=== PATIENT | male | born 1960 | race Caucasian/White ===

== ENCOUNTER 2020-07-18 07:00 | Outpatient (RCR) | payer BC, SELFPAY | END 2020-08-18 14:52 | disposition home or self-care (01) | LOC: HO.PTCHIC 07:00 | PROVIDERS: PCP Internal Medicine; Visit Provider Physician Assistant | DX: M54.12 Radiculopathy, cervical region (principal); M25.512 Pain in left shoulder | CPT/HCPCS: 97014; 97110; 97140; 97161 ==

== ENCOUNTER → 2020-10-27 10:03 | Outpatient (BNVA) | payer BC, SELFPAY | PROVIDERS: PCP Internal Medicine; Visit Provider Internal Medicine Cardiovascular Disease | DX: I25.10 Atherosclerotic heart disease of native coronary artery without angina pectoris (principal); E78.5 Hyperlipidemia, unspecified | CPT/HCPCS: 93005 ==

== ENCOUNTER 2020-11-07 06:55 | Outpatient (REF) | payer BC, SELFPAY ==
[2020-11-07 07:48] LABS: Cholesterol 135 mg/dL; HDL Cholesterol 40 mg/dL; LDL Cholesterol Calculated 81 mg/dl; Triglycerides 74 mg/dL
== END 2020-11-07 06:56 | disposition home or self-care (01) ==
LOC: HO.LAB 06:55
PROVIDERS: PCP Internal Medicine; Visit Provider Internal Medicine Cardiovascular Disease
DX: I25.10 Atherosclerotic heart disease of native coronary artery without angina pectoris (principal)
CPT/HCPCS: 36415; 80061

== ENCOUNTER → 2021-05-19 13:20 | Outpatient (BNVA) | payer BC, SELFPAY | PROVIDERS: PCP Physician Assistant Medical; Referring Provider Physician Assistant Medical; Visit Provider Internal Medicine Cardiovascular Disease | DX: I25.10 Atherosclerotic heart disease of native coronary artery without angina pectoris (principal); R07.89 Other chest pain | CPT/HCPCS: 93005 ==

== ENCOUNTER 2021-05-21 16:26 | Emergency (ER) | payer BC, SELFPAY ==
--- NOTE | 2021-05-21 | ECG_ITS ---
Test Reason : CHEST PAIN Blood Pressure : / mmHG Vent. Rate : 107 BPM Atrial Rate : 107 BPM P-R Int : 126 ms QRS Dur : 098 ms QT Int : 342 ms P-R-T Axes : 065 064 064 degrees QTc Int : 456 ms Sinus tachycardia Low voltage QRS Incomplete right bundle branch block Abnormal ECG When compared with ECG of 06-APR-2011 09:46, No significant change was found Referred By: Generic ED Physician Electronically Signed By:CHICA MULTANI
--- NOTE | ~2021-05-21 | XR_ITS ---
EXAMINATION: XR CHEST CLINICAL INFORMATION: Chest pain COMPARISON: 04/06/2011 TECHNIQUE: Frontal view of the chest was obtained. FINDINGS: The lungs are well expanded. There is no focal consolidation, edema, or effusion. No pneumothorax. The cardiomediastinal silhouette is within normal limits. No acute osseous abnormality. XR/XR chest 1V IMPRESSION: Clear lungs.
[2021-05-21 16:40] VITALS: BP 158/95; PULSE 110; RESP 18; TEMP 36.6; O2SAT 98; BMI 28.1
--- NOTE | 2021-05-21 17:19 | ED.CHESTPAIN ---
HPI - Chest Pain General Chief Complaint: Chest Pain Stated Complaint: cp Time Seen by Provider: 05/21/21 17:19 Source: patient Mode of arrival: ambulatory Limitations: no limitations History of Present Illness HPI narrative: Patient is 60 years old with history of nonobstructive coronary artery disease had stress test about 2 years ago which was negative on medical management complaining of left-sided precordial chest pain for last 1 week off and on. Seen cable puller on 05/18 EKG was normal and diagnosis as gastric etiology. And was planned to get stress test as outpatient. Today since 07:00 patient notice pain is more sharper lasting for few seconds and occurs left side no diaphoresis no nausea mild exertional shortness of breath ,patient feeling tired otherwise for last few days also has chronic left shoulder pain after surgery and seen the Orthopedics for same today Related Data Home Medications Medication Instructions Recorded Confirmed aspirin 81 mg tablet,delayed 81 mg PO DAILY 10/27/20 05/19/21 release (Adult Low Dose Aspirin) lidocaine 5 % topical patch 1 patch TOPICAL DAILY 10/27/20 05/19/21 oxycodone 5 mg tablet 5 mg PO PRN 10/27/20 05/19/21 Previous Rx's Medication Instructions Recorded atorvastatin 80 mg tablet 80 mg PO BEDTIME #90 tab 12/16/20 ezetimibe 10 mg tablet 10 mg PO DAILY #90 tab 12/16/20 bempedoic acid 180 mg tablet 180 mg PO DAILY #30 tab 05/19/21 (Nexletol) Allergies Allergy/AdvReac Type Severity Reaction Status Date / Time naproxen [NAPROXEN] Allergy Unknown HIVES Verified 05/21/21 16:39 Review of Systems Review of Systems: Yes all other systems are reviewed and are negative [facility] Past Medical History Medical History CAD (coronary artery disease) Hyperlipidemia Surgical History History of back surgery Hx of neck surgery S/P shoulder surgery Family History Family History Father CAD (coronary artery disease) Mother Afib CAD (coronary artery disease) Social History Social History Advance Directives: No Advance Directives Information Provided: Yes Physical Exam Vital Signs: Vital Signs: Last Vital Signs Temp 97.8 F 05/21/21 16:40 Pulse 77 05/21/21 19:31 Resp 16 05/21/21 19:31 BP 134/89 05/21/21 19:31 Pulse Ox 97 05/21/21 19:31 Body Mass Index 28.1 Appearance: Alert. Oriented X3. No acute distress. Anxious Eyes: No pallor or icterus ENT: Pharynx normal. Oral Mucosa moist Neck: Normal inspection. Neck supple. CVS: Normal heart rate and rhythm. Pulses normal. Respiratory: No respiratory distress. Equal air entry bilateral, no wheezing/rales/rhonchi Abdomen: Soft and nontender. Bowel sounds are present, no mass palpable, no CVA tenderness Skin: Skin warm and dry. Normal skin color. Normal skin turgor. Extremities: No lower extremity edema. No calf tenderness Neuro: Oriented X 3. No motor deficit. MDM - Chest Pain Medical Records Data Attestation: I reviewed the patient's medical records. Lab Data Attestation: I reviewed the patient's lab results. Result diagrams: 05/21/21 17:46 05/21/21 17:46 Labs: Lab Results 05/21/21 05/21/21 05/21/21 Range/Units 17:46 17:46 17:46 WBC 10.4 (4.8-10.8) X10*3/uL RBC 4.70 (4.60-5.80) X10*6/uL Hgb 14.1 (14.0-18.0) g/dl Hct 42.2 (42-52) % MCV 89.8 (80-98) fL MCH 30.0 (27.0-33.0) pg MCHC 33.4 (31.0-36.0) g/dl RDW 13.0 (11.0-16.0) % Plt Count 299 (160-400) X10*3/uL MPV 8.6 L (9.4-12.4) fL Immature Gran % (Auto) 1.1 H (0.0-0.4) % Neut % (Auto) 66.8 (45-73) % Lymph % (Auto) 20.3 (20-40) % [place] % (Auto) 10.2 (2-11) % Eos % (Auto) 0.9 (0-4) % Baso % (Auto) 0.7 (0-2) % Lymph # (Auto) 2.1 (1.2-4.9) X10*3/uL [place] # (Auto) 1.1 (0.1-1.2) X10*3/uL Eos # (Auto) 0.1 (0.0-0.4) X10*3/uL Baso # (Auto) 0.1 (0.0-0.2) X10*3/uL Abs Immat Gran (auto) 0.11 H (0.00-0.03) X10*3/uL Absolute Neuts (auto) 7.0 (2.0-8.3) X10*3/uL Absolute Nucleated RBC 0.000 (0.0-0.012) X10*3/uL Nucleated RBC % (auto) 0.0 (0.0-0.2) /100WBC PT 11.6 (9.9-13.0) SEC INR 1.0 (0.9-1.1) Sodium 142 (135-145) mmol/L Potassium 4.1 (3.3-5.1) mmol/L Chloride 108 (96-108) mmol/L Carbon Dioxide 26 (22-29) mmol/L Anion Gap 12 (12-20) BUN 9 (9-16) mg/dL Creatinine 0.83 (0.5-1.4) mg/dL Estim Creat Clear Calc 102.3 Estimated GFR > 60 Random Glucose 165 H (60-115) mg/dL Calcium 9.4 (8.4-10.2) mg/dL Troponin I High Sens (<3.5-35.0) ng/L 05/21/21 Range/Units 17:46 WBC (4.8-10.8) X10*3/uL RBC (4.60-5.80) X10*6/uL Hgb (14.0-18.0) g/dl Hct (42-52) % MCV (80-98) fL MCH (27.0-33.0) pg MCHC (31.0-36.0) g/dl RDW (11.0-16.0) % Plt Count (160-400) X10*3/uL MPV (9.4-12.4) fL Immature Gran % (Auto) (0.0-0.4) % Neut % (Auto) (45-73) % Lymph % (Auto) (20-40) % [place] % (Auto) (2-11) % Eos % (Auto) (0-4) % Baso % (Auto) (0-2) % Lymph # (Auto) (1.2-4.9) X10*3/uL [place] # (Auto) (0.1-1.2) X10*3/uL Eos # (Auto) (0.0-0.4) X10*3/uL Baso # (Auto) (0.0-0.2) X10*3/uL Abs Immat Gran (auto) (0.00-0.03) X10*3/uL Absolute Neuts (auto) (2.0-8.3) X10*3/uL Absolute Nucleated RBC (0.0-0.012) X10*3/uL Nucleated RBC % (auto) (0.0-0.2) /100WBC PT (9.9-13.0) SEC INR (0.9-1.1) Sodium (135-145) mmol/L Potassium (3.3-5.1) mmol/L Chloride (96-108) mmol/L Carbon Dioxide (22-29) mmol/L Anion Gap (12-20) BUN (9-16) mg/dL Creatinine (0.5-1.4) mg/dL Estim Creat Clear Calc Estimated GFR Random Glucose (60-115) mg/dL Calcium (8.4-10.2) mg/dL Troponin I High Sens < 3.5 (<3.5-35.0) ng/L ECG Data ECG #1: Attestation: I personally reviewed and interpreted this ECG as follows: Interpretation: Sinus tachycardia heart rate 107 beats per minute normal intervals normal axis no acute ischemic changes impression sinus tachycardia Discharge Plan Discharge Clinical Impression: Chest pain Qualifiers: Chest pain type: precordial pain Qualified Code(s): R07.2 - Precordial pain Patient Disposition: Home, Self-Care Instructions: Chest Pain (ED) Additional Instructions: Continue to take baby aspirin daily Your chest pain is unlikely from the heart but follow-up with your cable puller for further evaluation including stress test Prescriptions: No Action atorvastatin 80 mg tablet 80 mg PO BEDTIME Qty: 90 RF: 1 ezetimibe 10 mg tablet 10 mg PO DAILY Qty: 90 RF: 1 Nexletol 180 mg tablet 180 mg PO DAILY Qty: 30 RF: 5 lidocaine 5 % adhesive patch,medicated 1 patch topical DAILY RF: 0 oxycodone 5 mg tablet 5 mg PO PRNRF: 0 aspirin [Adult Low Dose Aspirin] 81 mg tablet,delayed release (DR/EC) 81 mg PO DAILY RF: 0
[2021-05-21 17:46] VITALS: BP 166/90; PULSE 93; RESP 19; O2SAT 97
[2021-05-21 17:51] LABS: MANUAL DIFF FLAG NO
[2021-05-21 17:54] LABS: Basophils Absolute Auto 0.1 X10*3/uL (0.0-0.2); Basophils Percent Auto 0.7 % (0-2); Eosinophils Absolute Auto 0.1 X10*3/uL (0.0-0.4); Eosinophils Percent Auto 0.9 % (0-4); Hematocrit 42.2 % (42-52); Hemoglobin 14.1 g/dl (14.0-18.0); Imm Gran Abs Auto 0.11 X10*3/uL (0.00-0.03); Imm Gran Pct Auto 1.1 % (0.0-0.4); Lymphocytes Absolute Auto 2.1 X10*3/uL (1.2-4.9); Lymphocytes Percent Auto 20.3 % (20-40); Mean Corpuscular HGB Conc 33.4 g/dl (31.0-36.0); Mean Corpuscular Volume 89.8 fL (80-98); Mean Platelet Volume 8.6 fL (9.4-12.4); Monocytes Absolute Auto 1.1 X10*3/uL (0.1-1.2); Monocytes Percent Auto 10.2 % (2-11); Neutrophils Percent Auto 66.8 % (45-73); Platelet Count 299 X10*3/uL (160-400); White Blood Count 10.4 X10*3/uL (4.8-10.8)
[2021-05-21 18:01] LABS: Prothrombin Time 11.6 SEC (9.9-13.0)
[2021-05-21 18:06] LABS: Anion Gap 12 (12-20); Blood Urea Nitrogen 9 mg/dL (9-16); Calcium 9.4 mg/dL (8.4-10.2); Carbon Dioxide 26 mmol/L (22-29); Chloride 108 mmol/L (96-108); Creatinine Clr Calc Pharmacy 102.3; Estimated Glomerular Filt Rate > 60; Glucose Random 165 mg/dL (60-115); Potassium 4.1 mmol/L (3.3-5.1); Sodium 142 mmol/L (135-145)
[2021-05-21] MEDS: Aspirin 81 MG TAB.CHEW 162 MG PO (18:13)
[2021-05-21 18:14] LABS: Troponin-I High Sensitivity < 3.5 ng/L (<3.5-35.0)
[2021-05-21 19:31] VITALS: BP 134/89; PULSE 77; RESP 16; O2SAT 97
== END 2021-05-21 20:04 | disposition home or self-care (01) ==
PROVIDERS: Emergency Provider Internal Medicine; PCP Physician Assistant Medical
DX: R07.9 Chest pain, unspecified (principal); Z79.82 Long term (current) use of aspirin
CPT/HCPCS: 36415; 71045; 80048; 84484; 85025; 85610; 93005; 99283; 99284

== ENCOUNTER → 2021-10-29 09:57 | Outpatient (BNVA) | payer BC, SELFPAY | PROVIDERS: PCP Physician Assistant Medical; Referring Provider Physician Assistant Medical; Visit Provider Internal Medicine Cardiovascular Disease | DX: I25.10 Atherosclerotic heart disease of native coronary artery without angina pectoris (principal); R06.02 Shortness of breath | CPT/HCPCS: 93005 ==

== ENCOUNTER 2021-10-31 08:11 | Outpatient (REF) | payer BC, SELFPAY ==
[2021-10-31 09:00] LABS: Cholesterol 127 mg/dL; HDL Cholesterol 30 mg/dL; LDL Cholesterol Calculated 62 mg/dl; Triglycerides 178 mg/dL
[2021-11-02 20:07] LABS: CRP High Sensitivity 0.8 mg/L
== END 2021-10-31 08:12 | disposition home or self-care (01) ==
LOC: HO.LAB 08:11
PROVIDERS: PCP Physician Assistant Medical; Visit Provider Internal Medicine Cardiovascular Disease
DX: I25.10 Atherosclerotic heart disease of native coronary artery without angina pectoris (principal); E78.5 Hyperlipidemia, unspecified
CPT/HCPCS: 36415; 80061; 86141

== ENCOUNTER → 2022-01-05 08:17 | Outpatient (REF) | payer BC, SELFPAY ==
--- NOTE | 2022-01-05 08:23 | CA_ITS ---
Transthoracic Echocardiogram Patient (Last, First, Middle): Fermín Varma, Gender: Male Date of : 1960 Age: 61 Procedure Date: 01/05/2022 Procedure Type: Transthoracic Echocardiogram Location: OP Height: 172.72 cm Weight: 81.65 kg BSA: 1.95 m2 Heart Rate: bpm BP: 120 / 80 mmHg [employer] Worker: LANDON Referring MD: Terrance Hopkins MD Manager Material: Terrance Hopkins MD Symptoms: R06.02 - Shortness of breath Study Quality: Fair ECG Rhythm: Sinus Conclusions: - 1. Normal LV systolic function with impaired relaxation filling pattern 2. Normal cardiac valvular Doppler 3. Normal RV systolic pressure 4. No gross pericardial effusion Findings Left Ventricle Normal left ventricular size, thickness, and systolic function. The visually estimated ejection fraction is between 65-70%. Spectral Doppler is indicative of an impaired relaxation filling pattern. E/E prime ratio is between 8 and 15 consistent with indeterminate filling pressures. Right Ventricle Normal right ventricular cavity size and systolic function. Atria The left atrium is normal in size. Interatrial shunt cannot be excluded. The right atrium was not well visualized. Aortic Valve The aortic valve was not well visualized. There is mild calcification of the aortic valve. There is no aortic valve stenosis. There is no aortic valve regurgitation. Mitral Valve There is mild anterior mitral leaflet thickening. There is mild mitral annular calcification. There is trace mitral valve regurgitation. There is no mitral valve stenosis. Pulmonic Valve The pulmonic valve was not well visualized. Tricuspid Valve The tricuspid valve was not well visualized. There is trace tricuspid valve regurgitation. The right ventricular systolic pressure is normal. The right ventricular systolic pressure is 22 mmHg. Normal right atrial pressure. There is no evidence of pulmonary hypertension. Great Vessels All visible segments of the aorta are normal in size. The pulmonary artery was not well visualized. Venous The inferior vena cava is normal in size and collapses greater than 50% with inspiration. Pericardium/Pleural There is no evidence of pericardial effusion. Prior Study Comparison no previous study in the last 5 years for comparison Measurements 2D Linear Measurements IVSd: 1.08 0.6-0.9/0.6-1.0 cm LVIDd: 4.04 3.9-5.3/4.2-5.9 cm LVIDd Index: 2.07 2.4-3.2/2.2-3.1 cm/m2 LVIDs: 2.42 2.0-3.6 cm LVPWd: 0.87 0.7-1.1 cm LA Diam: 3.10 2.7-3.8/3.0-4.0 cm LAIDs Index: 1.59 1.5-2.3 cm/m2 LV Mass: 154.83 67-162/88-224 g LV Mass Index: 79.40 43-95/49-115 g/m2 LVOT Diam: 1.90 3.0+(-)1.3 cm 2D Systolic Function EF 4C: 72.50 >55% EF 2C: 56.40 >55% EF BiP: 66.70 >55% Mitral Valve MV Pk E: 0.89 MV PK A: 0.87 MV Decel Time: 152.00 E/A: 1.00 E'Lateral: 7.72 E'Medial: 9.03 E/E' Med: 9.80 E/E' Lat: 11.50 PHT: 45.00 MVA PHT: 4.89 Decel [place]: 5.82 Aortic Valve AoV Pk Mert: 1.60 AoV Pk Grad: 10.00 LVOT LVOT Pk Mert: 1.14 LVOT Mn Mert: 0.77 LVOT VTI: 0.21 LVOT Pk Grad: 5.00 LVOT Mn Grad: 3.00 LVOT Diam: 1.90 LVOT Area: 2.84 Diastolic Function MV Pk E: 0.89 MV Pk A: 0.87 E/A: 1.00 E'Medial: 9.03 E/E' Med: 9.80 E' Laterial: 7.72 E/E' Lat: 11.50 Right Ventricle TAPSE (mm): 2.22 TVS' Mert: 13.90 Tricuspid Valve TR Pk Mert: 2.16 TR Pk Grad: 19.00 RA Press: 3.00 RVSP: 22.00 Great Vessels Aorta Sinus of Valsalva: 3.20 2.0-3.5 cm Updated in Other Vendor System with Status of Final Terrance Hopkins MD electronically signed on 01/05/2022 10:50:57 AM with status of Final
--- NOTE | 2022-01-05 08:23 | CA_ITS ---
Acquisition Time: 2022-01-05 09:32:41 Total Exercise Time: 00:07:10 Test Indications: cp, sob Medications: see chart Protocol: JOHANNA Max HR: 171 BPM 106% of Pred: 161 BPM Max BP: 184/078 mmHG Max Work Load: 8.8 METS Exercise stress test using Johanna protocol, total of 7 min 10 sec with METS and MAPHR up to 107 %, test terminated. EKG without arrhythmias, no sichemic changes during exercise or in recovery. Normotensive response to exercise. Test reviewed with Dr. Hopkins. Referred By: Terrance Hopkins Overread By: Juliana Ellsworth NP
== END ==
LOC: HO.CARD 08:17
PROVIDERS: Visit Provider Internal Medicine Cardiovascular Disease
DX: R06.02 Shortness of breath (principal)
CPT/HCPCS: 93017; 93306

== ENCOUNTER → 2022-01-12 13:39 | Outpatient (BNVA) | payer BC, SELFPAY | PROVIDERS: PCP Physician Assistant Medical; Referring Provider Physician Assistant Medical; Visit Provider Internal Medicine Cardiovascular Disease | DX: Z13.89 Encounter for screening for other disorder (principal) ==

== ENCOUNTER 2023-08-30 08:46 | Outpatient (AMB) | payer BC, SELFPAY ==
--- NOTE | 2023-08-30 08:55 | MHC.OFFVIS ---
Intake Vital Signs 08/30/23 08:56 Height 5 ft 8 in Weight 173 lb 4.533 oz BMI 26.3 BP 130/82 Blood Pressure Location Lt brachial Position Sitting Pulse 75 Pulse Source Monitor Intake Visit Reasons: overdue follow-up with ekg Allergies naproxen [NAPROXEN] Allergy (Unknown, Verified 08/30/23 08:59) HIVES Medication List - Last Reconciled 08/30/23 by Amisha Grimes, DOYLE-C aspirin (Adult Low Dose Aspirin) 81 mg PO DAILY atorvastatin 80 mg PO BEDTIME bempedoic acid (Nexletol) 180 mg PO DAILY ezetimibe 10 mg PO DAILY HPI overdue follow-up with ekg HPI Details Fermín is a 63-year-old male with past medical history of hyperlipidemia, CAD based on calcium score who presents for follow-up. Today he reports he has been doing well since his last visit 01/12/2022. He denies any anginal sounding symptoms. He has good activity tolerance. He is taking all meds as directed. No cardiac questions or concerns. [facility] Medical History Hyperlipidemia CAD (coronary artery disease) Surgical History Hx of neck surgery S/P shoulder surgery History of back surgery Family History Father CAD (coronary artery disease) Mother Afib CAD (coronary artery disease) Social History Alcohol intake: current Alcohol intake frequency: holidays/special occasions only Review of Systems Const All systems reviewed & are unremarkable except as noted in HPI and below ENT Denies dizziness Card Denies chest pain, Denies chest pain at rest, Denies chest pain with activity, Denies rapid heart rate, Denies pedal edema, Denies edema, Denies leg edema, Denies lightheadedness, Denies palpitations, Denies dyspnea, Denies dyspnea on exertion and Denies orthopnea Resp Denies cough, Denies dyspnea and Denies dyspnea on exertion GI Denies hematochezia and Denies change in stool character Musc Denies abnormal gait, Denies limited range of motion, Denies muscle cramps, Denies muscle weakness, Denies numbness, Denies radiating pain into limb, Denies stiffness and Denies tingling Neuro Denies abnormal gait, Denies dizziness, Denies numbness and Denies tingling Endo Denies palpitations Physical Exam Vital Signs: Last Vital Signs Pulse 75 08/30/23 08:56 BP 130/82 08/30/23 08:56 BMI result Body Mass Index 26.3 Const General: cooperative, healthy appearing, comfortable and no acute distress Orientation/consciousness: patient oriented x3 Neck Neck: Yes normal visual inspection Resp Effort & Inspection: normal respiratory effort Auscultation: clear to auscultation bilaterally, no crackles, no rales, no rhonchi and no wheezes Cardio Jugular venous distension: no JVD Rate: regular rate Rhythm: regular rhythm Heart sounds: S1 normal heart sound present, S2 normal heart sound present, no murmurs and no rubs Neuro General: patient oriented x3 Extrem General: Yes normal to inspection, No no pedal edema and No calf tenderness Psych Appearance: grossly normal Mental Status: mental status grossly normal Speech and movement: Normal speech and movement present Office Procedures EKG Details: Today, read by me, normal sinus rhythm, no acute ST or T-wave abnormalities, rate 75, QTC 419 milliseconds [id number], Complete Assessment & Plan Assessment & Plan (1) CAD (coronary artery disease): Code(s): I25.10 - Atherosclerotic heart disease of [place] coronary artery without angina pectoris Qualifiers: Coronary Disease-Associated Artery/Lesion type: [place] artery [place] vs. transplanted heart: [place] heart Associated angina: without angina Qualified Code(s): I25.10 - Atherosclerotic heart disease of [place] coronary artery without angina pectoris Plan: History of CAD, elevated calcium score. No reports of anginal sounding symptoms. An exercise stress test was done 01/05/2022 with exercise 7 minutes, no anginal symptoms or EKG changes. An echocardiogram done 01/05/2022 showed EF 65-70%, no valve abnormalities or regional wall motion abnormalities. Today reports feeling well with no concerning symptoms. EKG shows sinus rhythm with no acute ST or T-wave abnormalities, rate 75. Continue with risk factor modification. Continue aspirin 81 mg daily indefinitely. Continue atorvastatin, Zetia and Nexletol for good cholesterol control with ideal LDL less than 70. He has labs done at [place]. Will work on obtaining those results. Last LDL in our system 62 done on 10/31/2021. No med changes made at present. Blood pressure is well controlled. Weight down 9 lb since last visit. Signs and symptoms of angina reviewed. Cardiology follow-up in 1 year, sooner if needed. Emergency care if ever needed for concerning symptoms. (2) Hyperlipidemia: Code(s): E78.5 - Hyperlipidemia, unspecified Qualifiers: Hyperlipidemia type: familial hypercholesterolemia Qualified Code(s): E78.01 - Familial hypercholesterolemia Plan: As above Plan Time spent on chart review, documentation, interview, assessment Medications: Changed From atorvastatin 80 mg PO BEDTIME 30 tabs 6RF To atorvastatin 80 mg PO BEDTIME 90 days 90 tabs 3RF From ezetimibe 10 mg PO DAILY 30 tabs 6RF To ezetimibe 10 mg PO DAILY 90 days 90 tabs 3RF Refilled bempedoic acid (Nexletol) 180 mg PO DAILY 90 tabs 3RF Coding Level of Care Code Est Pt Level 3 (72762) Diagnoses Coronary artery disease involving [place] coronary artery of [place] heart without angina pectoris I25.10 Coronary Disease-Associated Artery/Lesion type: [place] artery [place] vs. transplanted heart: [place] heart Associated angina: without angina Familial hypercholesterolemia E78.01 Hyperlipidemia type: familial hypercholesterolemia CPT Codes EKG - CPT: [id number], Complete ([id number]) Time Spent (min) 24
[2023-08-30 08:56] VITALS: BP 130/82; PULSE 75; BMI 26.3
== END 2023-08-30 09:26 | disposition home or self-care (01) ==
PROVIDERS: PCP Physician Assistant Medical; Visit Provider Nurse Practitioner Family
DX: I25.10 Atherosclerotic heart disease of native coronary artery without angina pectoris (principal); E78.01 Familial hypercholesterolemia
CPT/HCPCS: 93010; 99213

== ENCOUNTER → 2023-08-30 08:46 | Outpatient (BNVA) | payer BC, SELFPAY | PROVIDERS: PCP Physician Assistant Medical; Visit Provider Nurse Practitioner Family | DX: I25.10 Atherosclerotic heart disease of native coronary artery without angina pectoris (principal); E78.01 Familial hypercholesterolemia | CPT/HCPCS: 93005 ==

== ENCOUNTER → 2024-03-08 13:09 | Outpatient (BNVA) | payer BC, SELFPAY | PROVIDERS: PCP Physician Assistant Medical; Visit Provider Internal Medicine Cardiovascular Disease ==

== ENCOUNTER 2024-05-31 09:33 | Emergency (ER) | payer BC, SELFPAY ==
--- NOTE | ~2024-05-31 | XR_ITS ---
EXAMINATION: XR CHEST CLINICAL INFORMATION: Evaluate for infection COMPARISON: Chest radiograph from 05/21/2021 TECHNIQUE: 2 views of the chest were obtained. FINDINGS: No focal consolidation. No pneumothorax. Trachea is midline. Cardiac mediastinal silhouette is not enlarged. No large pleural effusion. Partially visualized cervical spinal hardware. Soft tissues are unremarkable. XR/XR chest 2V IMPRESSION: No acute cardiopulmonary process. Electronically signed by: Jasmyn Berger MD 05/31/2024 04:55 PM EDT
--- NOTE | ~2024-05-31 | CT_ITS ---
EXAMINATION: CT ANGIOGRAM HEAD CT ANGIOGRAM NECK CLINICAL INFORMATION: Headache. Neck pain. Hypertension. COMPARISON: None available. TECHNIQUE: Initial noncontrast placement director imaging of the head and neck was performed. Noncontrast head CT was also performed. Test bolus sequences followed by intravenous administration 70 mL of Omnipaque 350. Helical imaging was performed in the axial plane from the aortic arch to the skull vertex. Delayed postcontrast imaging of the head was also performed. The data was processed at the molecular technologist's workstation for generation of MIP sequences. Angled MIPs and volume rendered reformatted images were also generated at an offline 3D workstation. Stenoses are assessed in accordance with NASCET criteria unless otherwise indicated. This CT examination was performed using dose optimization techniques as appropriate, variously including the following: *Automated exposure control. *Adjustment of mA and/or kV according to patient size (this includes techniques or standardized protocols for targeted exams where dose is matched to indication/reason for exam; i.e. extremities or head). *Use of iterative reconstruction technique. DLP: 2308 mGy-cm FINDINGS: CT Head: There is no evidence of acute intracranial hemorrhage or edematous territorial infarction. Varghese-white matter differentiation is preserved. A few foci of hypoattenuation in the periventricular and deep white matter are consistent with mild microangiopathy. Proportional prominence of the ventricles and sulcal spaces without evidence of obstructive hydrocephalus. No abnormal mass effect or midline shift. No extra-axial fluid collections. No pathologic intra-axial enhancement or regional oligemia. No acute soft tissue or osseous abnormalities. Mild mucosal thickening of the paranasal sinuses. The mastoid air cells and middle ear cavities are clear. CT Neck: The thyroid gland and remaining cervical soft tissues are within normal limits. Interbody fusion devices in place at C5-C6 and C6-C7. Straightening of the normal cervical lordosis. Mild to moderate degenerative disc disease at all additional levels. CT Upper Chest: Moderate centrilobular emphysema. The visualized lung apices and upper mediastinum are within normal limits. Neck CTA: Aortic Arch: Normal contour and caliber with mild calcific atherosclerotic disease. Two vessel branching pattern of the arch with left common carotid artery arising from the brachiocephalic trunk. Great Vessel Origins: No significant stenosis of the branch origins. Right Common Carotid Artery: No focal stenosis or occlusion. Cervical Right Internal Carotid Artery: Calcific atherosclerotic disease of the carotid bulb and proximal internal carotid artery causing less than 50% stenosis. Left Common Carotid Artery: No focal stenosis or occlusion. Cervical Left Internal Carotid Artery: Mixed fibrofatty and calcific atherosclerotic disease of the carotid bulb and proximal internal carotid artery causing less than 50% stenosis. Cervical Right Vertebral Artery: Co-dominant. No focal stenosis or occlusion. Cervical Left Vertebral Artery: Co-dominant. No focal stenosis or occlusion. Brain CTA: Intracranial Internal Carotid Arteries: Calcific atherosclerotic disease of the intracranial internal carotid arteries without occlusion or flow-limiting stenosis. Right Anterior Cerebral Artery: Normal A1 segment. Normal opacification of the distal NORA segments. Left Anterior Cerebral Artery: Normal A1 segment. Normal opacification of the distal NORA segments. Anterior Communicating Artery: Normal. Right Middle Cerebral Artery: Normal M1 segment of the MCA without focal stenosis or occlusion. Normal arborization of the distal segments. Left Middle Cerebral Artery: Normal M1 segment of the MCA without focal stenosis or occlusion. Normal arborization of the distal segments. Right Vertebral Artery: Normal V4 segment. Normal opacification of the proximal segments of the posterior inferior cerebellar artery. Left Vertebral Artery: Normal V4 segment. Normal opacification of the proximal segments of the posterior inferior cerebellar artery. Basilar Artery: Normal without focal stenosis or occlusion. Normal appearance of the proximal superior cerebellar arteries. Right Posterior Cerebral Artery: The P1 segment is diminutive. origin of the SCRAP PREPARER with robust opacification of the posterior communicating artery. Normal opacification of the distal SCRAP PREPARER segments. Left Posterior Cerebral Artery: Normal P1 segment. Normal opacification of the distal SCRAP PREPARER segments. Normal opacification of the superior sagittal, straight, transverse, and sigmoid sinuses. CT/CT angio head neck IMPRESSION: 1. No evidence of acute intracranial hemorrhage or edematous territorial infarction. Mild underlying microangiopathy and generalized cerebral volume loss. 2. CTA of the head and neck without proximal occlusion or flow-limiting stenosis. Electronically signed by: Cale Fitzgerald DO 05/31/2024 05:18 PM EDT
[2024-05-31 10:05] VITALS: BP 178/104; PULSE 98; RESP 20; TEMP 36.8; O2SAT 100; BMI 25.6
[2024-05-31 10:23] LABS: MANUAL DIFF FLAG NO
[2024-05-31 10:25] LABS: Basophils Absolute Auto 0.1 X10*3/uL (0.0-0.2); Basophils Percent Auto 1.1 % (0-2); Eosinophils Absolute Auto 0.4 X10*3/uL (0.0-0.4); Hematocrit 45.4 % (42.0-52.0); Hemoglobin 15.5 g/dl (14.0-18.0); Imm Gran Abs Auto 0.06 X10*3/uL (0.00-0.03); Imm Gran Pct Auto 0.5 % (0.0-0.4); Lymphocytes Absolute Auto 2.8 X10*3/uL (1.2-4.9); Lymphocytes Percent Auto 23.9 % (20-40); Mean Corpuscular HGB Conc 34.1 g/dl (31.0-36.0); Mean Corpuscular Volume 87.8 fL (80.0-98.0); Mean Platelet Volume 9.2 fL (9.4-12.4); Monocytes Absolute Auto 1.1 X10*3/uL (0.1-1.2); Monocytes Percent Auto 9.5 % (2-11); Neutrophils Absolute Auto 7.3 x10*3/uL (2.0-8.3); Platelet Count 355 X10*3/uL (160-400); Red Blood Count 5.17 X10*6/uL (4.60-5.80); Red Cell Distribution Width 13.1 % (11.0-16.0); White Blood Count 11.8 X10*3/uL (4.8-10.8)
[2024-05-31 10:43] LABS: Alanine Aminotransferase 31 U/L (0-40); Albumin Level 4.7 g/dL (3.5-5.0); Alkaline Phosphatase 66 U/L (39-117); Anion Gap 15 (12-20); Aspartate Amino Transferase 39 U/L (5-37); Bilirubin Direct 0.3 mg/dL (0.0-0.5); Bilirubin Total 0.7 mg/dL (0.0-1.0); Blood Urea Nitrogen 11 mg/dL (9-16); Calcium 9.8 mg/dL (8.4-10.2); Carbon Dioxide 24 mmol/L (22-29); Chloride 107 mmol/L (96-108); Creatinine Clr Calc Pharmacy 62.5; Estimated Glomerular Filt Rate > 60; Glucose Random 125 mg/dL (60-115); Lipase 92 U/L (8-78); Potassium 5.2 mmol/L (3.3-5.1); Sodium 141 mmol/L (135-145); Total Protein 7.6 g/dL (6.5-8.0)
[2024-05-31 11:10] LABS: Appearance Urine Clear; Color Urine Yellow; Glucose Urine UA Negative (Negative); Leukocyte Esterase Urine Negative (Negative); Nitrite Urine Negative (Negative); PH 6.5 (5.0-9.0); Specific Gravity - Urine 1.015 (1.005-1.025); Urine Blood Negative (Negative); Urine Ketones 15 mg/dL (Negative); Urine Protein Negative (Neg-Trace)
[2024-05-31 14:19] VITALS: BP 180/88; PULSE 92; RESP 16; TEMP 36.9; O2SAT 98
--- NOTE | 2024-05-31 14:23 | ED_ITS ---
HPI - General Adult General Chief complaint: General Medical Stated complaint: High BP, dizziness Time Seen by Provider: 05/31/24 14:22 Source: patient Mode of arrival: ambulatory Limitations: no limitations History of Present Illness ED Provider: WARD CORBIN PA-C HPI narrative: 63-year-old male with past medical history significant for CAD presents to the ED today for evaluation of elevated blood pressures x2-3 weeks. Reports 2 episodes of elevated BP to 190s/110s at outpatient follow up appointments. He denies any history of high blood pressure and has never been on medication for this. Reports associated right-sided headache and lightheadedness that began today. Right-sided headache radiates into the right side of his neck. Has been constant since onset. Denies fever, chills, vision changes, chest pain, palpitations, shortness of breath. Related Data Home Medications ?Medication ?Instructions ?Recorded ?Confirmed aspirin 81 mg tablet,delayed 81 mg PO DAILY 10/27/20 08/30/23 release (Adult Low Dose Aspirin) Previous Rx's ?Medication ?Instructions ?Recorded atorvastatin 80 mg tablet 80 mg PO BEDTIME 90 days #90 tabs 08/30/23 bempedoic acid 180 mg tablet 180 mg PO DAILY #90 tabs 08/30/23 (Nexletol) ezetimibe 10 mg tablet 10 mg PO DAILY 90 days #90 tabs 08/30/23 Allergies Allergy/AdvReac Type Severity Reaction Status Date / Time naproxen [NAPROXEN] Allergy Unknown HIVES Verified 05/31/24 10:08 Review of Systems 2 Review of Systems: Constitutional: No fever, chills, fatigue, night sweats, weight changes ENT/Mouth: No ear pain, hearing loss, nasal congestion, sinus pain, rhinorrhea, sore throat Eyes: No eye pain, swelling, redness, vision changes, discharge Cardio: No chest pain, palpitations, CANALES, orthopnea, peripheral edema Pulm: No SOB, cough, sputum, wheezing, dyspnea, hemoptysis GI: No nausea, vomiting, hematemesis, abdominal pain, diarrhea, constipation, hematochezia, melena : No irregular bleeding, dysuria, frequency, urgency, hesitancy, hematuria, flank pain, urinary flow changes, urinary incontinence or retention MSK: No back pain, neck pain, joint pain, myalgias Skin: No lesions, rashes Neuro: No weakness, numbness, paresthesias, LOC, +dizziness, +headache Psych: No anxiety/panic, depression, SI/HI, AH/VH All other systems reviewed and are negative. [facility] Past Medical History Attestation statement: The following information was validated with the patient. Source: old records reviewed and nursing notes reviewed Medical History Hyperlipidemia CAD (coronary artery disease) Surgical History Hx of neck surgery S/P shoulder surgery History of back surgery Family History Family History Father CAD (coronary artery disease) Mother Afib CAD (coronary artery disease) Social History Social History Alcohol intake: current Alcohol intake frequency: holidays/special occasions only Smoked in Last 30 Days: No Use of substances other than those prescribed or required for medical reasons: No Advance Directives: No Advance Directives Information Provided: Yes Do you have a plan to hurt others: No Plan Physical Exam ED Vital Signs: Vital Signs - 24 hr 05/31/24 14:19 05/31/24 14:40 05/31/24 15:13 Temperature 98.4 F 97.9 F Pulse Rate 92 88 93 Respiratory Rate 16 19 16 Blood Pressure 180/88 H 190/103 H 167/89 H Pulse Oximetry 98 98 98 Oxygen Delivery Method Room Air Room Air 05/31/24 16:03 05/31/24 18:25 Temperature 97.8 F Pulse Rate 89 89 Respiratory Rate 12 12 Blood Pressure 160/79 H 161/82 H Pulse Oximetry 98 98 Oxygen Delivery Method Room Air Room Air BMI result Body Mass Index 25.6 Patient hypertensive, vitals otherwise WNL General: Well appearing, in no acute distress. Skin: Warm, dry, intact. No rashes or lesions. Head: Normocephalic, atraumatic. EENT: Hearing is intact b/l. Conjunctiva clear. Sclera is anicteric. PERRLA. EOM intact. No papilledema. Moist mucous membranes.? Neck: Supple without LAD. FROM. Trachea midline.? Cardiac: Chest wall symmetric. RRR. No MRG. No JVD. Lungs: Normal respiratory effort without accessory muscle use. CTA bilaterally. No rales, rhonchi, or wheezes.? Abdomen: Soft, non-tender, non-distended. No rebound tenderness or guarding. Positive BS x4. Back: No midline spinous or paraspinal tenderness. No step off deformity. Ext: Upper and lower extremities atraumatic, without tenderness, deformity, swelling or erythema. Full ROM throughout. Pulses 2+ equal and bilateral. Neuro: AOx3. Normal speech. CN 2-12 grossly intact. Strength 5/5 intact throughout. Sensation intact to light touch. NV intact distally. Reflexes 2+ bilaterally. Ambulating with steady gait. Psych: Appropriate mood and affect. Responds appropriately to questions. Course Course Course Narrative: 1504 -- CBC with slight leukocytosis to 11.8, no left shift. No anemia. H&H stable. Chemistry showing slight hyperkalemia to 5.2 > 5 of low, ordered. Troponin undetectable. Lipase elevated to 92 however no concern for acute pancreatitis at this time. Urine negative for infection, blood. EKG showing normal sinus rhythm with sinus arrhythmia at a rate of 76 bpm, no acute ischemic changes or ST elevations. > will trial 5 of amlodipine and monitor BP > CT head/brain and CT angio head/ neck ordered for further evaluation 1518 -- Repeat BP prior to amlodipine administration is 167/89 -- will hold off on antihypertensive at this time pending imaging. 1627 -- patient is stable at the end of my shift. Blood pressure 160/79. Will continue to hold amlodipine at this time. Sign-out given to my colleague Sathya NAM pending CTA head/ neck and disposition. Reevaluation(s) Reevaluation #1: Patient received in sign-out at change of shift pending CT angiography of the head and neck. There was no evidence of significant arterial stenosis, no occlusion, no aneurysm or dilatation to explain the patient's neck pain. His pain may be musculoskeletal in nature. I discussed these findings with the patient. He reports that he has a primary doctor appointment tomorrow, therefore I will defer any antihypertensive medication to his primary doctor as he is being seen tomorrow Time: 18:07 Medications Administered Discontinued Medications Generic Name Dose Route Start Last Admin Trade Name Freq PRN Reason Stop Dose Admin Amlodipine Besylate 5 mg 05/31/24 14:55 05/31/24 16:10 Amlodipine Besylate 5 Mg Tablet PO 05/31/24 14:56 Not Given ONCE ONE Protocol Sodium Chloride 1,000 mls @ 999 mls/hr 05/31/24 15:00 05/31/24 16:27 Ns IV 05/31/24 16:00 Infused .Q1H1M KENTRELL Infusion Iohexol 70 ml 05/31/24 16:30 05/31/24 16:31 Iohexol 350 Mg/Ml 100 Ml Infus..Btl IV 05/31/24 16:31 70 ml ONCE ONE Administration Sodium Zirconium Cyclosilicate 5 gm 05/31/24 14:30 05/31/24 14:45 Sodium Zirconium Cyclosilicate 5 Gm Powd.Pack PO 05/31/24 14:31 5 gm ONCE ONE Administration Medical Decision Making Medical Decision Making [facility] Narrative: 63-year-old male with past medical history significant for CAD presents to the ED today for evaluation of elevated blood pressures x2-3 weeks. Patient hypertensive to 190/103. Vitals otherwise WNL. He is nontoxic appearing in no acute distress. Appears anxious on initial examination. Exam is nonfocal. Cerebellum intact. He is ambulating with steady gait. No papilledema. PERRLA. No photophobia. RRR. Lungs CTA b/l. Differential diagnosis includes hypertensive urgency, hypertensive emergency, essential hypertension, anemia, electrolyte abnormality, dehydration. Presentation not consistent with vertigo, cerebellar stroke, CVA/TIA. Plan for labs, ekg, UA, imaging, and re-evaluation. Differential Diagnosis Differential Diagnoses: The differential diagnosis associated with the presentation includes As above Admission/Observation Not indicated Lab Data [facility] Lab Attestation statement: I reviewed the patient's lab results. As above 05/31/24 10:18 05/31/24 10:18 Labs: Lab Results 05/31/24 05/31/24 Range/Units 10:18 10:53 WBC 11.8 H (4.8-10.8) X10*3/uL RBC 5.17 (4.60-5.80) X10*6/uL Hgb 15.5 (14.0-18.0) g/dl Hct 45.4 (42.0-52.0) % MCV 87.8 (80.0-98.0) fL MCH 30.0 (27.0-33.0) pg MCHC 34.1 (31.0-36.0) g/dl RDW 13.1 (11.0-16.0) % Plt Count 355 (160-400) X10*3/uL MPV 9.2 L (9.4-12.4) fL Immature Gran % (Auto) 0.5 H (0.0-0.4) % Neut % (Auto) 62.0 (45-73) % Lymph % (Auto) 23.9 (20-40) % [place] % (Auto) 9.5 (2-11) % Eos % (Auto) 3.0 (0-4) % Baso % (Auto) 1.1 (0-2) % Lymph # (Auto) 2.8 (1.2-4.9) X10*3/uL [place] # (Auto) 1.1 (0.1-1.2) X10*3/uL Eos # (Auto) 0.4 (0.0-0.4) X10*3/uL Baso # (Auto) 0.1 (0.0-0.2) X10*3/uL Abs Immat Gran (auto) 0.06 H (0.00-0.03) X10*3/uL Absolute Neuts (auto) 7.3 (2.0-8.3) x10*3/uL Absolute Nucleated RBC 0.000 (0.0-0.012) X10*3/uL Nucleated RBC % (auto) 0.0 (0.0-0.2) /100WBC Sodium 141 (135-145) mmol/L Potassium 5.2 H (3.3-5.1) mmol/L Chloride 107 (96-108) mmol/L Carbon Dioxide 24 (22-29) mmol/L Anion Gap 15 (12-20) BUN 11 (9-16) mg/dL Creatinine 1.20 (0.5-1.4) mg/dL Estim Creat Clear Calc 62.5 Estimated GFR > 60 Random Glucose 125 H (60-115) mg/dL Calcium 9.8 (8.4-10.2) mg/dL Total Bilirubin 0.7 (0.0-1.0) mg/dL Direct Bilirubin 0.3 (0.0-0.5) mg/dL AST 39 H (5-37) U/L ALT 31 (0-40) U/L Alkaline Phosphatase 66 (39-117) U/L Troponin I High Sens < 2.7 (<3.5-35.0) ng/L Total Protein 7.6 (6.5-8.0) g/dL Albumin 4.7 (3.5-5.0) g/dL Lipase 92 H (8-78) U/L Urine Color Yellow Urine Appearance Clear Urine pH 6.5 (5.0-9.0) Ur Specific [place] 1.015 (1.005-1.025) Urine Protein Negative (Neg-Trace) mg/dL Urine Glucose (UA) Negative (Negative) mg/dL Urine Ketones 15 (Negative) mg/dL Urine Blood Negative (Negative) Urine Nitrite Negative (Negative) Ur Leukocyte Esterase Negative (Negative) Independent Interpretation I performed an independent interpretation of an: EKG, Plain X-Ray and CT Scan Interpretation: EKG showing normal sinus rhythm with sinus arrhythmia at a rate of 76 beats per minute, QT 376, QTC 423, no acute ischemic changes or ST elevations. CXR without infiltrate or consolidation, agree with radiologist's interpretation. CT head/brain without intracranial bleed, agree with radiologist's interpretation. CT angio head/neck without significant arterial stenosis, agree with radiologist's interpretation. Radiology Impression Discussion of test interpretation with radiology: I have reviewed the radiologist's reading. Radiologist Impression: EXAMINATION: XR CHEST CLINICAL INFORMATION: Evaluate for infection COMPARISON: Chest radiograph from 05/21/2021 TECHNIQUE: 2 views of the chest were obtained. FINDINGS: No focal consolidation. No pneumothorax. Trachea is midline. Cardiac mediastinal silhouette is not enlarged. No large pleural effusion. Partially visualized cervical spinal hardware. Soft tissues are unremarkable. XR/XR chest 2V IMPRESSION: No acute cardiopulmonary process. Electronically signed by: Jasmyn Berger MD 05/31/2024 04:55 PM EDT RP EXAMINATION: CT ANGIOGRAM HEAD CT ANGIOGRAM NECK CLINICAL INFORMATION: Headache. Neck pain. Hypertension. COMPARISON: None available. TECHNIQUE: Initial noncontrast line appliance assembler imaging of the head and neck was performed. Noncontrast head CT was also performed. Test bolus sequences followed by intravenous administration 70 mL of Omnipaque 350. Helical imaging was performed in the axial plane from the aortic arch to the skull vertex. Delayed postcontrast imaging of the head was also performed. The data was processed at the senior technologist's workstation for generation of MIP sequences. Angled MIPs and volume rendered reformatted images were also generated at an offline 3D workstation. Stenoses are assessed in accordance with NASCET criteria unless otherwise indicated. This CT examination was performed using dose optimization techniques as appropriate, variously including the following: *Automated exposure control. *Adjustment of mA and/or kV according to patient size (this includes techniques or standardized protocols for targeted exams where dose is matched to indication/reason for exam; i.e. extremities or head). *Use of iterative reconstruction technique. DLP: 2308 mGy-cm FINDINGS: CT Head: There is no evidence of acute intracranial hemorrhage or edematous territorial infarction. Varghese-white matter differentiation is preserved. A few foci of hypoattenuation in the periventricular and deep white matter are consistent with mild microangiopathy. Proportional prominence of the ventricles and sulcal spaces without evidence of obstructive hydrocephalus. No abnormal mass effect or midline shift. No extra-axial fluid collections. No pathologic intra-axial enhancement or regional oligemia. No acute soft tissue or osseous abnormalities. Mild mucosal thickening of the paranasal sinuses. The mastoid air cells and middle ear cavities are clear. CT Neck: The thyroid gland and remaining cervical soft tissues are within normal limits. Interbody fusion devices in place at C5-C6 and C6-C7. Straightening of the normal cervical lordosis. Mild to moderate degenerative disc disease at all additional levels. CT Upper Chest: Moderate centrilobular emphysema. The visualized lung apices and upper mediastinum are within normal limits. Neck CTA: Aortic Arch: Normal contour and caliber with mild calcific atherosclerotic disease. Two vessel branching pattern of the arch with left common carotid artery arising from the brachiocephalic trunk. Great Vessel Origins: No significant stenosis of the branch origins. Right Common Carotid Artery: No focal stenosis or occlusion. Cervical Right Internal Carotid Artery: Calcific atherosclerotic disease of the carotid bulb and proximal internal carotid artery causing less than 50% stenosis. Left Common Carotid Artery: No focal stenosis or occlusion. Cervical Left Internal Carotid Artery: Mixed fibrofatty and calcific atherosclerotic disease of the carotid bulb and proximal internal carotid artery causing less than 50% stenosis. Cervical Right Vertebral Artery: Co-dominant. No focal stenosis or occlusion. Cervical Left Vertebral Artery: Co-dominant. No focal stenosis or occlusion. Brain CTA: Intracranial Internal Carotid Arteries: Calcific atherosclerotic disease of the intracranial internal carotid arteries without occlusion or flow-limiting stenosis. Right Anterior Cerebral Artery: Normal A1 segment. Normal opacification of the distal NORA segments. Left Anterior Cerebral Artery: Normal A1 segment. Normal opacification of the distal NORA segments. Anterior Communicating Artery: Normal. Right Middle Cerebral Artery: Normal M1 segment of the MCA without focal stenosis or occlusion. Normal arborization of the distal segments. Left Middle Cerebral Artery: Normal M1 segment of the MCA without focal stenosis or occlusion. Normal arborization of the distal segments. Right Vertebral Artery: Normal V4 segment. Normal opacification of the proximal segments of the posterior inferior cerebellar artery. Left Vertebral Artery: Normal V4 segment. Normal opacification of the proximal segments of the posterior inferior cerebellar artery. Basilar Artery: Normal without focal stenosis or occlusion. Normal appearance of the proximal superior cerebellar arteries. Right Posterior Cerebral Artery: The P1 segment is diminutive. origin of the SUPER[employer]ING [employer]ING with robust opacification of the posterior communicating artery. Normal opacification of the distal [employer] segments. Left Posterior Cerebral Artery: Normal P1 segment. Normal opacification of the distal [employer] segments. Normal opacification of the superior sagittal, straight, transverse, and sigmoid sinuses. CT/CT angio head neck IMPRESSION: 1. No evidence of acute intracranial hemorrhage or edematous territorial infarction. Mild underlying microangiopathy and generalized cerebral volume loss. 2. CTA of the head and neck without proximal occlusion or flow-limiting stenosis. Electronically signed by: Cale Fitzgerald DO 05/31/2024 05:18 PM EDT External Record Review External record reviewed: Inpatient record Social Determinants Patient?s care significantly limited by Social Determinants of Health including: Other Social Determinant of Health Critical Care Time Critical Care Time Critical Care Time: No Discharge Plan Discharge Clinical Impression: Blood pressure elevated without history of HTN Patient Disposition: Home, Self-Care Instructions: Hypertension (ED) Additional Instructions: Your workup in the ER today was reassuring This includes your blood work, your EKG, your CT scans. Follow-up with your primary doctor as you may benefit from a blood pressure medication Return for new or worsening symptoms Prescriptions: No Action aspirin [Adult Low Dose Aspirin] 81 mg tablet,delayed release (DR/EC) 81 mg PO DAILY atorvastatin 80 mg tablet 80 mg PO BEDTIME 90 Days Qty: 90 3RF Nexletol 180 mg tablet 180 mg PO DAILY Qty: 90 3RF ezetimibe 10 mg tablet 10 mg PO DAILY 90 Days Qty: 90 3RF Interventions: ED Discharge Assessment Last Done: 05/31/24 18:25 Discharge Date/Time: 05/31/24 18:27 Print Language: Cook Islander
--- NOTE | 2024-05-31 14:29 | ECG_ITS ---
Test Reason : DIZZY, HYPERTENSIVE Blood Pressure : / mmHG Vent. Rate : 076 BPM Atrial Rate : 076 BPM P-R Int : 130 ms QRS Dur : 104 ms QT Int : 376 ms P-R-T Axes : 018 010 058 degrees QTc Int : 423 ms Normal sinus rhythm with sinus arrhythmia Normal ECG When compared with ECG of 21-MAY-2021 16:32, Incomplete right bundle branch block is no longer Present Heart rate has decreased Referred By: Ree Warner Electronically Signed By:CHICA MULTANI
[2024-05-31 14:40] VITALS: BP 190/103; PULSE 88; RESP 19; O2SAT 98
[2024-05-31] MEDS: Sodium Zirconium Cyclosilicate 5 GM POWD.PACK PO (14:45)
[2024-05-31 14:55] LABS: Troponin-I High Sensitivity < 2.7 ng/L (<3.5-35.0)
[2024-05-31 15:13] VITALS: BP 167/89; PULSE 93; RESP 16; TEMP 36.6; O2SAT 98
[2024-05-31] MEDS: 0.9 % Sodium Chloride 1,000 ML 999 ML IV (15:15)
[2024-05-31 16:03] VITALS: BP 160/79; PULSE 89; RESP 12; O2SAT 98
[2024-05-31] MEDS: iohexoL 350 MG/ML 100 ML INFUS..BTL 70 ML IV (16:31)
[2024-05-31 18:25] VITALS: BP 161/82; PULSE 89; RESP 12; TEMP 36.6; O2SAT 98
== END 2024-05-31 18:27 | disposition home or self-care (01) ==
PROVIDERS: Physician Assistant Medical; Emergency Provider Emergency Medicine; PCP Physician Assistant Medical
DX: R42 Dizziness and giddiness (principal); R51.9 Headache, unspecified; I25.10 Atherosclerotic heart disease of native coronary artery without angina pectoris; M54.2 Cervicalgia; R07.89 Other chest pain; I10 Essential (primary) hypertension; Z79.899 Other long term (current) drug therapy
CPT/HCPCS: 36415; 70496; 70498; 71046; 80048; 80076; 81003; 83690; 84484; 85025; 93005; 96360; 99284; 99285; Q9967

== ENCOUNTER 2024-11-06 13:11 | Outpatient (AMB) | payer BC, SELFPAY ==
--- NOTE | 2024-11-06 13:14 | MHC.OFFVIS ---
Vital Signs 11/06/24 13:15 Height 5 ft 8 in Weight 176 lb 5.917 oz BMI 26.8 BP 120/72 Blood Pressure Location Lt brachial Position Sitting Pulse 71 Intake Visit Reasons: 1 yr f/up Intake Note: 1 year follow-up with ekg started on metoprolol by pcp Sports Equipment Racker Required: No Allergies naproxen [NAPROXEN] Allergy (Unknown, Verified 05/31/24 10:08) HIVES Medication List - Last Reconciled 11/06/24 by Terrance Hopkins MD aspirin (Adult Low Dose Aspirin) 81 mg PO DAILY atorvastatin 80 mg PO BEDTIME 90 days bempedoic acid (Nexletol) 180 mg PO DAILY ezetimibe 10 mg PO DAILY 90 days metoprolol succinate ER 25 mg PO DAILY vibegron (Gemtesa) 75 mg PO DAILY HPI Comments Details: Fermín comes for follow-up. Last year he had lot of issues with his cervical spine as well as lumbar spine and a lot of pain and was taking lot of ibuprofen and his blood pressure is elevated. He was then started on metoprolol therapy in his pain is better controlled. Blood pressures been very well controlled since then. He is taking all his medications. Denies any exertional chest pain or shortness of breath. Denies any orthopnea, PND, leg edema. No recent lipid panel available to review. Denies any prolonged palpitation, lightheadedness, syncope. [facility] Medical History Hyperlipidemia CAD (coronary artery disease) Surgical History Hx of neck surgery S/P shoulder surgery History of back surgery Family History Father CAD (coronary artery disease) Mother Afib CAD (coronary artery disease) Social History Alcohol intake: current Alcohol intake frequency: holidays/special occasions only Review of Systems Const Denies chills, Denies fatigue, Denies fever(s), Denies frequent falls, Denies weakness, Denies weight gain and Denies weight loss ENT Denies dizziness Card Denies chest pain, Denies leg edema, Denies lightheadedness, Denies palpitations, Denies dyspnea, Denies dyspnea on exertion, Denies orthopnea and Denies other (loss of consciousness) Resp Denies cough, Denies dyspnea and Denies dyspnea on exertion GI Denies hematochezia and Denies change in stool character Musc Denies abnormal gait, Denies muscle weakness, Denies numbness, Denies radiating pain into limb and Denies tingling Neuro Denies abnormal gait, Denies dizziness, Denies frequent falls, Denies numbness, Denies tingling and Denies weakness Endo Denies fatigue and Denies palpitations Physical Exam Vital Signs: Last Vital Signs Pulse 71 11/06/24 13:15 BP 120/72 11/06/24 13:15 BMI result Body Mass Index 26.8 Const General: cooperative, healthy appearing, comfortable and no acute distress Orientation/consciousness: patient oriented x3 Neck Neck: Yes normal visual inspection Resp Effort & Inspection: normal respiratory effort Auscultation: clear to auscultation bilaterally, no crackles, no rales, no rhonchi and no wheezes Cardio Jugular venous distension: no JVD Rate: regular rate Rhythm: regular rhythm Heart sounds: S1 normal heart sound present, S2 normal heart sound present, no murmurs and no rubs Neuro General: patient oriented x3 Extrem General: Yes normal to inspection, No no pedal edema and No calf tenderness Psych Appearance: grossly normal Mental Status: mental status grossly normal Speech and movement: Normal speech and movement present Office Procedures EKG Details: EKG shows normal sinus rhythm normal EKG 30030-Xezseghyzhyccebac, Complete Assessment & Plan Assessment & Plan (1) CAD (coronary artery disease): Code(s): I25.10 - Atherosclerotic heart disease of [place] coronary artery without angina pectoris Category: Medical Qualifiers: Coronary Disease-Associated Artery/Lesion type: [place] artery [place] vs. transplanted heart: [place] heart Associated angina: without angina Qualified Code(s): I25.10 - Atherosclerotic heart disease of [place] coronary artery without angina pectoris Plan: CAD, nonobstructive without any significant symptoms. Currently well optimized on medical therapy. Continue low-dose aspirin therapy. Continue current triple lipid therapy to target goal LDL less than 55 mg/dL. Advised to continue monitor lipid panel at least on annual basis. Lifestyle modification discussed advised to call me with any new symptoms. (2) HTN (hypertension): Code(s): I10 - Essential (primary) hypertension Category: Medical Plan: Hypertension which is currently well optimized on low-dose metoprolol therapy. Discussed about low-salt diet. Discussed about stress mitigation strategy. Discussed about not using a lot of nonsteroidals which can raise her blood pressure. Will follow up in the clinic in 1 year's time, sooner p.r.n.. Thank you for allowing me to partake in his care Coding Level of Care Code Est Pt Level 4 (49217) Complex EM visit Add On G2211 Diagnoses Coronary artery disease involving [place] coronary artery of [place] heart without angina pectoris I25.10 Coronary Disease-Associated Artery/Lesion type: [place] artery [place] vs. transplanted heart: [place] heart Associated angina: without angina HTN (hypertension) I10 CPT Codes EKG - CPT: 61728-Aegmcspzmyrncedej, Complete ([id number])
[2024-11-06 13:15] VITALS: BP 120/72; PULSE 71; BMI 26.8
--- OUTSIDE RECORDS SUMMARY | 2024-11-06 14:08 | XMS_ITS | Clinical Summary ---
Author Organization [address] [facility] Address [address] [place] [address] Phone Care Team Providers Care Judicial Registrar Name Role Phone Francis Greene Primary Care Provider [phone] Allergies Active Allergy Reactions Criticality Noted Date Comments Naproxen Hives 04/05/2006 Nsaids (Non-Steroidal Anti-I nflammatory Drug) Anxiety 08/02/2024 Medications aspirin 81 mg EC tablet Take 1 tablet (81 mg total) by mouth 1 (one) time each day. Active atorvastatin (LIPITOR) 80 mg tablet Take 1 tablet (80 mg total) by mouth 1 (one) time each day. 9 Active bempedoic acid (Nexletol) 180 mg tablet 2 Active ezetimibe (ZETIA) 10 mg tablet 1 Active metoprolol succinate (TOPROL-XL) 25 mg 24 hr tablet Take 1 tablet (25 mg total) by mouth 1 (one) time each day. 4 Active gabapentin (NEURONTIN) 100 mg capsule Take 1 capsule (100 mg total) by mouth 2 (two) times a day. 60 each 4 Active acetaminophen (TYLENOL) 500 mg tablet Take 2 tablets (1,000 mg total) by mouth every 6 (six) hours if needed for mild pain. 60 tablet 4 Active oxyCODONE (OXY-IR) 5 mg immediate release capsuleIndicati ons:Left inguinal hernia Take 1 capsule (5 mg total) by mouth every 6 (six) hours if needed for severe pain. Max Daily Amount: 20 mg 12 capsule 4 Active tamsulosin (FLOMAX) 0.4 mg 24 hr capsule TAKE 1 CAPSULE BY MOUTH DAILY. TAKE 30 MINS AFTER SAME MEAL EVERY DAY. 90 capsule 3 4 Active acetic acid-hydrocorti sone (VOSOL-HC) otic solution Administer 5 drops into the right ear 2 (two) times a day if needed (ear itching). Place 5 Drops into both ears 2 times daily as needed for Other (ear itching). 10 mL 3 5 Active Active Problems Problem Noted Date Diagnosed Date Elevated blood pressure reading 06/27/2024 Coronary artery disease due to lipid rich plaque 09/09/2023 Type 2 diabetes mellitus wit hout complication, without long-term current use of insulin 06/03/2023 Chronic neck pain 08/31/2011 Hypertrophy of prostate without urinary obstruct ion 05/13/2006 Hyperlipidemia 04/18/2006 Encounters Date Type Department Care Team Description 09/24/2024 12:30 PM EST Office Visit Adult Medicine [address] [phone] Francis Greene PA Type 2 diabetes mellitus without complication, without long-term current use of insulin ([facility]) (Primary Dx); Hyperlipidemia, unspecified hyperlipidemia type; Coronary artery disease due to lipid rich plaque; Hypertrophy of prostate without urinary obstruction; Chronic neck pain 08/13/2024 8:00 AM EST Office Visit General Surgery - [address] [place] [address] Bob Harris MD History of left inguinal hernia repair (Primary Dx) 08/12/2024 Telephone Adult Medicine [address] [phone] Francis Greene PA Prior Auth from Last 3 Months Immunizations Name Administration Dates Next Due Influenza Quadravalent, 0.5m l (Fluzone High-dose) 65yo and older 07/04/2017 Influenza Quadravalent, MDCK , 0.5ml, preservative free (Flucelvax) 6mo and older 05/31/2023,06/04/2020,07/16/2019,2017 Influenza Quadrivalent, 0.5m l, preservative free (Fluarix; FluLaval; Fluzone) ages 6mo and older (Afluria) 3yo and older 07/21/2022 Influenza trivalent, with preservative (Fluzone; Afluria) 6mo and older 08/29/2021,07/23/2016,08/01/2015,2013 Influenza, Unspecified 06/01/2024 Moderna SARS-CoV-2 COVID-19, mRNA, LNP-S, preservative free 07/21/2022 Pneumococcal conjugate 20 va lent (Prevnar 20, PCV 20) 2mo and older 09/09/2023 Td Tetanus diptheria (Tdvax) 7yo and older 05/31/2023,11/23/2004 Tdap Tetanus diptheria acell ular pertussis (Boostrix; Adacel) 7yo and older 10/24/2012 Zoster recombinant (Shingrix ) 19yo and older 01/24/2024,11/08/2023 Surgical History Surgery Date Site/Laterality Comments HERNIA REPAIR Bilateral PROCEDURE: HISTORICAL HERNIA REPAIR/ING ELBOW SURGERY Right PROCEDURE: HISTORICAL ELBOW SURGERY; COMMENT: tennis elbow surgery NECK SURGERY PROCEDURE: HISTORICAL NECK SURGERY; COMMENT: dr salomon 2011 disc surgery cerv COLONOSCOPY 2012 PROCEDURE: HISTORICAL COLONOSCOPY; COMMENT: normal COLONOSCOPY 06/27/2018 PROCEDURE: HISTORICAL COLONOSCOPY; COMMENT: 5 mm rectal polyp: tubular adenoma. SHOULDER SURGERY Left PROCEDURE: HISTORICAL SHOULDER SURGERY; COMMENT: 2020, 2021 x 2 surgeries COLONOSCOPY 04/04/2024 PROCEDURE: HISTORICAL COLONOSCOPY; COMMENT: nikole 1 polyp 5 yrs CERVICAL DISCECTOMY Medical History Medical History Date Comments Other and unspecified hyperlipidemia DX:Other and unspecified hyperlipidemia Hypertrophy of prostate with out urinary obstruction and other lower urinary tract symptoms (LUTS) DX:Hypertrophy of prostate w ithout urinary obstruction and other lower urinary tract symptoms (LUTS) Neck pain Left inguinal hernia Family History Medical History Relation Name Comments Breast cancer Aunt 70 Heart attack Father CA x 2 Other: some of type of cancer Maternal Grandfather Other: ?lymphoma Mother Other: afib Mother Relation Name Status Comments Aunt Alive Brother Alive Father (Age 65) mi, Maternal Grandfather Mother (Age 81) svt Sister Alive Social History Tobacco Use Types Packs/Day Years Used Date Smoking Tobacco: Former Cigarettes 0.5 19 0 01/18/1973 - 01/19/1992 Smokeless Tobacco: Never Alcohol Use Standard Drinks/Week Comments Not Currently 0 (1 standard drink = 0.6 oz pur e alcohol) Housing Instability Answer Date Recorde d Are you worried that in the next 2 months you may not have stable housing? No 09/17/2024 Food Access & Nutrition Answer Date Rec orded Do you have access to a vari ety of food including fruits and vegetables? Yes 09/17/2024 Health Literacy Answer Date Recorded How often do you need to hav e someone help you when you read instructions, pamphlets, or other written material from your doctor or pharmacy? Never 09/17/2024 Caregiver: How often do you need to have someone help you when you read instructions, pamphlets, or other written material from your doctor or pharmacy? Not on file 09/17/2024 Financial Risk Answer Date Recorded How hard is it for you to pa y for the very basics like food, housing, medical care, and air conditioning / heating? Not very hard 09/17/2024 Transportation Answer Date Recorded Has the lack of transportati on kept you from meetings, work, or from getting things needed for daily living? No Has the lack of transportati on kept you from medical appointments or from getting medications? No 09/17/2024 Social Isolation Answer Date Recorded How often do you feel lonely or isolated from th ose around you? Never 09/17/2024 Food Risk Answer Date Recorded Within the past 12 months we worried whether our food would run out before we got money to buy more. Never true 09/17/2024 Within the past 12 months th e food we bought just didn't last and we didn't have money to get more. Never true 09/17/2024 Dependent Care Answer Date Recorded Do you need help finding or paying for care for your loved ones. For example, child welfare counselor or elderly care for an older adult? No 09/17/2024 Education Answer Date Recorded Do you think completing more education or training, like finishing a GED, going to college, or learning a trade, would be helpful for you? No 09/17/2024 Employment and Income Answer Date Recor ded During the last four weeks, have you been actively looking for work? No 09/17/2024 Living Situation Answer Date Recorded What is your living situation? 1 Interpersonal Safety Answer Date Record ed Physical Abuse 08/02/2024 Verbal Abuse 08/02/2024 Sex and Gender Information Value Date Recorded Sex Assigned at Male 08/02/2024 5:55 AM EST Legal Sex Male 9:34 AM EST Gender Identity Male 08/02/2024 5:55 AM EST Sexual Orientation Straight 08/02/2024 5: 55 AM EST Obstetrics History Last Filed Vital Signs Vital Sign Reading Time Taken Comments Blood Pressure 130/70 09/24/2024 12:44 PM EST Pulse 95 09/24/2024 12:28 PM EST Temperature 36.4 ??C (97.6 ??F) 09/24/2024 12:[address] Respiratory Rate 16 08/02/2024 10:38 AM EST Oxygen Saturation 16% 09/24/2024 12:28 PM EST Inhaled Oxygen Concentration - - Weight 80.3 kg (177 lb) 09/24/2024 12:28 PM EST Height 172.7 cm (5' 8 ) 08/13/2024 8:14 AM EST Body Mass Index 26.91 08/13/2024 8:14 AM EST Plan of Treatment Upcoming Encounters Date Type Department Care Team (Late st Contact Info) Description 12/24/2024 12:30 PM EDT Office Visit Adult Medicine [facility] [address] [place] [phone] Francis Greene PA [address] [place] [address] Health Maintenance Due Date Last Done Comments HIV Screening 08/28/2022 COVID-19 Vaccine ( season) 2024 07/21/2022, 08/29/2021, 10/19/2020, Additional history exists Diabetes: Annual Foot Exam 09/09/2024 09/09/2023 Diabetes: Blood Sugar Control Test (HGBA1C) 12/09/2024 06/11/2024, 06/11/2024, 03/07/2024 Diabetes: Annual Retina Eye Exam 06/07/2025 06/07/2024, 08/30/2023 Diabetes: Annual Urine Albumin-Creatinine Ratio (uACR) 06/11/2025 06/11/2024 Diabetes: Annual GFR (Glomerular Filtration Rate) 06/11/2025 06/11/2024, 06/11/2024, 06/11/2024, Additional history exists Hypertension/CHF/CAD Annual BMP Blood Test 06/11/2025 06/11/2024, 06/11/2024, 06/11/2024, Additional history exists Depression Screening 09/17/2025 09/17/2024 Social Influencers of Health Screening 09/17/2025 09/17/2024 Colorectal Cancer Screening: Colonoscopy 04/04/2029 04/04/2024 Cholesterol Screening (Lipid Panel) 06/11/2029 06/11/2024, 06/11/2024, 03/07/2024 DTaP,Tdap,and Td Vaccines (4 - Td or Tdap) 05/31/2033 05/31/2023, 10/24/2012, 11/23/2004 RSV Immunization Patients 60+ Years Old (1 - 1-dose 75+ series) 2037 Hepatitis C Screening Completed 02/21/2009 Pneumococcal Vaccine: 50+ Years Completed 09/09/2023 Pneumococcal Vaccine: Pediatrics (0 to 5 Years) and At-Risk Patients (6 to 64 Years) Completed 09/09/2023 Zoster Vaccines Completed 01/24/2024, 11/08/2023 Influenza Vaccine Completed 06/01/2024, , 07/21/2022, Additional history exists HIB Vaccines Aged Out No longer eligi ble based on patient's age to complete this topic HPV Vaccines Aged Out No longer eligi ble based on patient's age to complete this topic Hepatitis A Vaccines Aged Out No long er eligible based on patient's age to complete this topic Hepatitis B Vaccines Aged Out No long er eligible based on patient's age to complete this topic IPV Vaccines Aged Out No longer eligi ble based on patient's age to complete this topic MMR Vaccines Aged Out No longer eligi ble based on patient's age to complete this topic Meningococcal ACWY Vaccine Aged Out N o longer eligible based on patient's age to complete this topic Meningococcal B Vacine Aged Out No lo nger eligible based on patient's age to complete this topic RSV Immunization Patients Under 20 months Aged Out No longer eligible based on patient's age to complete this topic Varicella Vaccines Aged Out No longer eligible based on patient's age to complete this topic Medical Devices Implanted Type Area Forming Machine Upkeep Mechanic Helper Device Identifier Shelf Expiration Date Model / Serial / Lot Mesh 3dmax Lght Lg 4.1x6.2 L 4.1x6.2in - Sn/A - [id number] Implanted:Qty: 1 on 08/02/2024 by Tevin Leary DO at [facility] Surgical Mesh Sling Implants Left: Inguinal CR BARD - [employer] 11/16/2028 [id number] / N/A / [id number] [employer] Fix8 Implanted:Qty: 1 on 08/02/2024 by Tevin Leary, DO at [facility] Left: Inguinal [employer] 11/16/2025 [id number] / N/A / [id number] Procedures Procedure Name Priority Date/Time Associated Diagnosis Comments PROSTATE SPECIFIC ANTIGEN DIAGNOSTIC Routine 09/20/2024 9:11 AM EST Enlarged prostate with urinary obstruction URINE ALBUMIN CREATININE RATIO Routine 06/11/2024 ANNUAL BMP BLOOD TEST Routine 06/11/2024 HEMOGLOBIN A1C Routine 06/11/2024 LIPID PANEL Routine 06/11/2024 COLONOSCOPY Routine 04/04/2024 DIABETES FOOT EXAM Routine 09/09/2023 DIABETES EYE EXAM Routine 08/30/2023 HEPATITIS C SCREENING Routine 02/21/2009 from Last 3 Months or Most Recently Relevant to Health Maintenance Results * Prostate specific antigen diagnostic (09/20/2024 9:11 AM EST) PSA 1.13 0.00 - 4.00 ng/mL LAB CHEMISTRY METHOD 09/20/2024 12:54 PM EST [facility] Blood Venous blood specimen / Unknown Venipuncture / Unknown 09/20/2024 9:11 AM EST 09/20/2024 9:11 AM EST Narrative [facility] - 09/20/2024 12:54 PM EST The Siemens Advia Centaur Chemiluminescent Immunoassay is used. Results obtained with different assay methods or kits cannot be used interchangeably. Results cannot be interpreted as absolute evidence of the presence or absence of malignant disease. Result [facility] Pio Cadena MD LAB BLOOD ORDERABLES Final Resu lt [facility] [address] [place] [address], * Urine Albumin Creatinine Ratio (06/11/2024) Pathologist [facility] hospital Urine Albumin Creatinine Ratio abstracted Result [facility] Provider HEALTH MAINTENANCE Final Result * Annual BMP Blood Test (06/11/2024) Pathologist Critical [facility] hospital Annual BMP Blood Test abstracted Result [facility] Provider HEALTH MAINTENANCE Final Result * Hemoglobin A1c (06/11/2024) [facility] Hemoglobin A1C 6.1 <=6.5 % Blood Venous blood specimen / Unknown Result [facility] Provider LAB BLOOD ORDERABLES Maye l Result * (ABNORMAL) Lipid panel (06/11/2024) Pathologist [facility] LDL/HDL Ratio 3 0 - 4 Triglycerides 131 0 - 150 mg/dL Cholesterol 119 0 - 200 mg/dL HDL 38(A) >=40 mg/dL LDL Cholesterol 55 0 - 100 mg/dL Blood Venous blood specimen / Unknown Result [facility] Provider LAB BLOOD ORDERABLES Maye l Result * Colonoscopy (04/04/2024) [facility] Colonoscopy no interpreta tion,abstr acted Anatomical Region Laterality Modality Other [facility] Provider MD HEALTH MAINTENANCE Edited Result - Final * Diabetes Foot Exam (09/09/2023) [facility] Diabetes: Annual Foot Exam Completed [facility] Provider ME HEALTH MAINTENANCE Final Result * Diabetes Eye Exam (08/30/2023) [facility] Diabetes: Annual Retina Eye Exam Completed [facility] Provider MD HEALTH MAINTENANCE Final Result * Hepatitis C Screening (02/21/2009) [facility] Hepatitis C Screening abstracted [facility] Provider HEALTH MAINTENANCE Final Result from Last 3 Months or Most Recently Relevant to Health Maintenance Insurance [facility] Care Teams Judicial Registrar Relationship Specialty Start Date End Date Francis Greene PA [address] [place] [address] PCP - General Internal Medicine 07/20/24
== END 2024-11-06 13:38 | disposition home or self-care (01) ==
PROVIDERS: PCP Physician Assistant Medical; Visit Provider Internal Medicine Cardiovascular Disease
DX: I25.10 Atherosclerotic heart disease of native coronary artery without angina pectoris (principal); I10 Essential (primary) hypertension
CPT/HCPCS: 93010; 99214

== ENCOUNTER → 2024-11-06 13:11 | Outpatient (BNVA) | payer BC, SELFPAY | PROVIDERS: PCP Physician Assistant Medical; Visit Provider Internal Medicine Cardiovascular Disease | DX: I25.10 Atherosclerotic heart disease of native coronary artery without angina pectoris (principal); I10 Essential (primary) hypertension; Z79.82 Long term (current) use of aspirin; Z79.899 Other long term (current) drug therapy | CPT/HCPCS: 93005 ==

== ENCOUNTER → 2025-03-07 00:12 | Outpatient (BNV) | payer BC, SELFPAY | PROVIDERS: PCP Physician Assistant Medical; Visit Provider Radiology Diagnostic Radiology | DX: J43.2 Centrilobular emphysema (principal); R06.02 Shortness of breath | CPT/HCPCS: 71046; 71275 ==

== ENCOUNTER 2025-03-07 00:44 | Emergency (ER) | payer BC, SELFPAY ==
--- NOTE | 2025-03-07 | ECG_ITS ---
Test Reason : SOB Blood Pressure : */* mmHG Vent. Rate : 69 BPM Atrial Rate : 69 BPM P-R Int : 118 ms QRS Dur : 94 ms QT Int : 388 ms P-R-T Axes : 13 45 69 degrees QTcB Int : 415 ms Normal sinus rhythm Normal ECG When compared with ECG of 31-May-2024 14:49, No significant change was found Referred By: Generic ED Physician Electronically Signed By: Efra Mercado
--- NOTE | ~2025-03-07 | CT_ITS ---
CLINICAL HISTORY: CP, sob CT angiography chest with contrast. 3D Postprocessing. Comparison: None provided Findings: The heart size is normal. RV/LV ratio is normal. The thoracic aorta is normal caliber. No mediastinal adenopathy. No discrete thyroid lesion identified. Minimal atherosclerotic disease of the coronary arteries. No pulmonary arterial filling defect identified. Lungs demonstrate mild airway thickening and mild centrilobular emphysema. No acute osseous finding. The visualized upper abdomen demonstrates no acute process. Impression: No evidence of pulmonary embolism or heart strain. Mild airway thickening and centrilobular emphysema. This document has been electronically signed by: Jr Peterson MD on 03/07/2025 07:41:29
--- NOTE | ~2025-03-07 | XR_ITS ---
CLINICAL HISTORY: SOB 2 view chest x-ray. Comparison: None Findings: The lungs appear clear. There is no consolidation, effusion, or pneumothorax. Cardiomediastinal silhouette is within normal limits. IMPRESSION: No acute cardiopulmonary abnormality. This document has been electronically signed by: Kenneth Wright MD on 03/07/2025 02:26:01
[2025-03-07 00:47] VITALS: BP 160/88; PULSE 81; RESP 20; TEMP 36.2; O2SAT 99; BMI 26.6
--- OUTSIDE RECORDS SUMMARY | 2025-03-07 01:10 | XMS_ITS | Clinical Summary ---
Author Organization [facility] Address [address] [place] [address] Phone Care Team Providers Care Instrument Repairer Name Role Phone Francis Greene Primary Care Provider [phone] Allergies Active Allergy Reactions Criticality Noted Date Comments Naproxen Hives 04/05/2006 Nsaids (Non-Steroidal Anti-I nflammatory Drug) Anxiety 08/02/2024 Medications aspirin 81 mg EC tablet Take 1 tablet (81 mg total) by mouth 1 (one) time each day. Active atorvastatin (LIPITOR) 80 mg tablet Take 1 tablet (80 mg total) by mouth 1 (one) time each day. 07/16/20 19 Active bempedoic acid (Nexletol) 180 mg tablet 07/19/20 22 Active ezetimibe (ZETIA) 10 mg tablet 08/04/20 21 Active acetic acid-hydrocort isone (VOSOL-HC) otic solution Administer 5 drops into the right ear 2 (two) times a day if needed (ear itching). Place 5 Drops into both ears 2 times daily as needed for Other (ear itching). 10 mL 3 09/24/19 25 Active metoprolol succinate (TOPROL-XL) 25 mg 24 hr tablet TAKE 1 TABLET BY MOUTH EVERY DAY 90 tablet 1 12/15/19 25 Active Gemtesa 75 mg tablet tablet Take 1 tablet (75 mg total) by mouth 1 (one) time each day. 10/22/19 25 Active amitriptyline (ELAVIL) 10 mg tablet Take 1 tablet (10 mg total) by mouth at bedtime. 30 each 02/28/20 25 026 Active cholecalcifero l (VITAMIN D-3) 50 mcg (2,000 unit) tablet Take 1 tablet (2,000 Units total) by mouth 1 (one) time each day. 30 tablet 03/01/20 026 Active gabapentin (NEURONTIN) 100 mg capsule Take 1 capsule (100 mg total) by mouth 2 (two) times a day. 60 each 07/24/20 24 025 Discontinued( erapy completed) acetaminophen (TYLENOL) 500 mg tablet Take 2 tablets (1,000 mg total) by mouth every 6 (six) hours if needed for mild pain. 60 tablet 08/02/20 025 Discontinued( erapy completed) oxyCODONE (OXY-IR) 5 mg immediate release capsuleIndicat ions:Left inguinal hernia Take 1 capsule (5 mg total) by mouth every 6 (six) hours if needed for severe pain. Max Daily Amount: 20 mg 12 capsule 08/02/20 24 025 Discontinued tamsulosin (FLOMAX) 0.4 mg 24 hr capsule TAKE 1 CAPSULE BY MOUTH DAILY. TAKE 30 MINS AFTER SAME MEAL EVERY DAY. 90 capsule 3 08/28/20 025 Discontinued( erapy completed) oxyCODONE (ROXICODONE) 5 mg immediate release tabletIndicati ons:Worsening headaches Take 1 tablet (5 mg total) by mouth every 6 (six) hours if needed for severe pain. Max Daily Amount: 20 mg 28 tablet 02/16/20 025 Discontinued( erapy completed) Active Problems Problem Noted Date Diagnosed Date Elevated blood pressure reading 06/27/2024 Coronary artery disease due to lipid rich plaque 09/09/2023 Type 2 diabetes mellitus wit hout complication, without long-term current use of insulin ([facility] V24, [facility] V28) 06/03/2023 Chronic neck pain 08/31/2011 Hypertrophy of prostate without urinary obstruct ion 05/13/2006 Hyperlipidemia 04/18/2006 Encounters Date Type Department Care Team Description 03/04/[address] [place] [address] Mine Barajas [place] 02/27/2025 10:40 AM EDT Consult [facility] [address] [place] [address] Louie Narayan MD Occipital neuralgia of right side (Primary Dx); Abnormal finding on MRI of brain; Worsening headaches 02/23/2025 Telephone Adult Medicine [address] [phone] Francis Greene PA 02/21/2025 2:16 PM EDT - 02/21/2025 11:59 PM EDT Hospital Encounter Radiology Department - [address] [phone] Worsening headaches Discharge Disposition: Home or Self Care 02/15/2025 Telephone Adult Medicine [address] [phone] Francis Greene PA 12/24/2024 1:00 PM EDT - 12/24/2024 11:59 PM EDT Hospital Encounter XRAY - [address] [phone] Impingement syndrome of right shoulder Discharge Disposition: Home or Self Care 12/24/2024 12:30 PM EDT Office Visit Adult Medicine [address] [phone] Francis Greene, PA Type 2 diabetes mellitus without complication, without long-term current use of insulin ([facility] V24, [facility] V28) (Primary Dx); Cervical radicular pain; Hyperlipidemia, unspecified hyperlipidemia type; Coronary artery disease due to lipid rich plaque from Last 3 Months Immunizations Name Administration [...] Breast cancer Aunt 70 Heart attack Father [place] x 2 Other: some of type of cancer Maternal Grandfather Other: ?lymphoma Mother Other: afib Mother Relation Name Status Comments Aunt Alive Brother Alive Father (Age 65) mi, Maternal Grandfather Mother (Age 81) svt Sister Alive Social History Tobacco Use Types Packs/Day Years Used Date Smoking Tobacco: Former Cigarettes 0.5 19 0 01/18/1973 - 01/19/1992 Smokeless Tobacco: Never Tobacco Cessation:Counseling Given: Not Answered Alcohol Use Standard Drinks/Week Comments Not Currently [...] for your loved ones. For example, child care worker or elderly care for an older adult? [...] Sign Reading Time Taken Comments Blood Pressure 139/85 02/27/2025 10:45 AM EDT Pulse 66 02/27/2025 10:45 AM EDT Temperature 36.8 C (98.3 F) 12/24/2024 12:38 PM EDT Respiratory Rate 14 12/24/2024 12:38 PM EDT Oxygen Saturation 95% 02/27/2025 10:45 AM EDT Inhaled Oxygen Concentration - - Weight 79.4 kg (175 lb) 02/27/2025 10:45 AM EDT Height 172.7 cm (5' 8 ) 02/27/2025 10:45 AM EDT Body Mass Index 26.61 02/27/2025 10:45 AM EDT Plan of Treatment Upcoming Encounters Date Type Department Care Team (Late st Contact Info) Description 04/22/2025 9:00 AM EDT Office Visit Adult Medicine [address] [phone] Francis Greene PA [address] [place] [address] 06/06/2025 9:00 AM EDT Office Visit [facility] [address] [phone] Louie Narayan MD 175 [facility] [address] [place] [phone] 06/25/2025 8:30 AM EDT Office Visit Adult Medicine [address] [phone] Francis Greene PA [address] [place] [address] Health Maintenance Due Date Last Done Comments HIV Screening 08/28/2022 COVID-19 Vaccine ( season) 2024 07/21/2022, 08/29/2021, 10/19/2020, Additional history exists Diabetes: Annual Retina Eye Exam 06/07/2025 06/07/2024, 08/30/2023 Diabetes: Blood Sugar Control Test (HGBA1C) 06/27/2025 12/26/2024, 06/11/2024, 06/11/2024, Additional history exists Social Influencers of Health Screening 09/17/2025 09/17/2024 Depression Screening 12/17/2025 12/17/2024 Diabetes: Annual Urine Albumin-Creatinine Ratio (uACR) 12/26/2025 12/26/2024, 06/11/2024 Diabetes: Annual GFR (Glomerular Filtration Rate) 02/27/2026 02/27/2025, 12/26/2024, 06/11/2024, Additional history exists Hypertension/CHF/CAD Annual BMP Blood Test 02/27/2026 02/27/2025, 12/26/2024, 06/11/2024, Additional history exists Colorectal Cancer Screening: Colonoscopy 04/04/2029 04/04/2024 Cholesterol Screening (Lipid Panel) 12/26/2029 12/26/2024, 06/11/2024, 06/11/2024, Additional history exists DTaP,Tdap,and Td Vaccines (4 - Td or Tdap) 05/31/2033 05/31/2023, 10/24/2012, 11/23/2004 RSV Immunization Adult Patients (1 - 1-dose 75+ series) 2037 Hepatitis C Screening Completed 02/21/2009 Diabetes: Annual Foot Exam Discontinued 09/09/2023 Pneumococcal Vaccine: 50+ Years Completed 09/09/2023 Pneumococcal [...] age to complete this topic Meningococcal B Vaccine Aged Out No l onger eligible based on patient's age to complete this topic RSV Immunization Patients Under 20 months Aged Out No longer eligible based on patient's age to complete this topic Varicella Vaccines Aged Out No longer eligible based on patient's age to complete this topic Medical Devices Implanted Type [facility] [employer] [facility] Sales Consultant Device Identifier Shelf Expiration Date Model / Serial / Lot Mesh 3dmax Lght Lg 4.1x6.2 L 4.1x6.2in - Sn/A - [id number] Implanted:Qty: 1 on 08/02/2024 by Tevin Leary DO at [facility] Surgical Mesh Sling Implants Left: Inguinal [employer] 11/16/2028 [id number] / N/A / [id number] [employer] Fix8 Implanted:Qty: 1 on 08/02/2024 by Tevin Leary DO at [facility] Left: Inguinal [employer] 11/16/2025 [id number] / N/A / [id number] Procedures Procedure Name Priority Date/Time Associated Diagnosis Comments CBC WITH AUTO DIFFERENTIAL Routine 02/27/2025 11:53 AM EDT Abnormal finding on MRI of brain Worsening headaches SEDIMENTATION RATE Routine 02/27/2025 11 :53 AM EDT Abnormal finding on MRI of brain Worsening headaches CREATININE, SERUM Routine 02/27/2025 11: 53 AM EDT Abnormal finding on MRI of brain Worsening headaches BUN Routine 02/27/2025 11:53 AM EDT Abnormal finding on MRI of brain Worsening headaches SJOGRENS ANTIBODIES, SSA AND SSB Routine 02/27/2025 11:53 AM EDT Abnormal finding on MRI of brain Worsening headaches FERNANDO IFA WITH TITER AND PATTERN Routine 02/27/2025 11:53 AM EDT Abnormal finding on MRI of brain Worsening headaches BORRELIA BURGDORFERI ANTIBODY Routine 02/27/2025 11:53 AM EDT Abnormal finding on MRI of brain Worsening headaches CBC AND DIFFERENTIAL Routine 02/27/2025 11:53 AM EDT Abnormal finding on MRI of brain Worsening headaches VITAMIN D 25 HYDROXY Routine 02/27/2025 11:53 AM EDT Abnormal finding on MRI of brain Worsening headaches VITAMIN B12 Routine 02/27/2025 11:53 AM EDT Abnormal finding on MRI of brain Worsening headaches MR BRAIN WO AND W CONTRAST Routine 02/21/2025 3:12 PM EDT Worsening headaches LIPID PANEL WITH REFLEX TO DIRECT LDL Routine 12/26/2024 8:55 AM EDT Cervical radicular pain Type 2 diabetes mellitus without complication, without long-term current use of insulin (CMS/HCC V24, CMS/HCC V28) Hyperlipidemia, unspecified hyperlipidemia type Coronary artery disease due to lipid rich plaque MICROALBUMIN CREATININE URINE RATIO Routine 12/26/2024 8:55 AM EDT Cervical radicular pain Type 2 diabetes mellitus without complication, without long-term current use of insulin (CMS/HCC V24, CMS/HCC V28) Hyperlipidemia, unspecified hyperlipidemia type Coronary artery disease due to lipid rich plaque COMPREHENSIVE METABOLIC PANEL Routine 12/26/2024 8:55 AM EDT Cervical radicular pain Type 2 diabetes mellitus without complication, without long-term current use of insulin ([facility] V24, [facility] V28) Hyperlipidemia, unspecified hyperlipidemia type Coronary artery disease due to lipid rich plaque HEMOGLOBIN A1C Routine 12/26/2024 8:55 AM EDT Cervical radicular pain Type 2 diabetes mellitus without complication, without long-term current use of insulin ([facility] V24, [facility] V28) Hyperlipidemia, unspecified hyperlipidemia type Coronary artery disease due to lipid rich plaque XR SHOULDER 2+ VIEWS RIGHT Routine 12/24/2024 1:15 PM EDT Impingement syndrome of right shoulder COLONOSCOPY Routine 04/04/2024 DIABETES FOOT EXAM Routine 09/09/2023 DIABETES EYE EXAM Routine 08/30/2023 HEPATITIS C SCREENING Routine 02/21/2009 from Last 3 Months or Most Recently Relevant to Health Maintenance Results * (ABNORMAL) Sjogrens antibodies, SSA and SSB (02/27/2025 11:53 AM EDT) Sjogren's SS-A (Ro) Ab Quant 1 <20 units LAB CHEMISTRY METHOD 03/03/2025 10:37 AM EDT [facility] Sjogren's SS-A (Ro) Ab Negative Negative LAB CHEMISTRY METHOD 03/03/2025 10:37 AM EDT [facility] Sjogren's SS-B (La) Ab Quant 36(H) <20 units LAB CHEMISTRY METHOD 03/03/2025 10:37 AM EDT [facility] Sjogren's SS-B (La) Ab Positive(A) Negative LAB CHEMISTRY METHOD 03/03/2025 10:37 AM EDT [facility] Blood Venous blood specimen / Unknown Venipuncture / Unknown 02/27/2025 11:53 AM EDT 02/27/2025 11:53 AM EDT us Louie Narayan MD LAB BLOOD ORDERABLES Fin al Result [facility] [address] [place] [address], [place] [phone] * FERNANDO IFA with titer and pattern (02/27/2025 11:53 AM EDT) [facility] FERNANDO Negative Negative 02/28/2025 2:25 PM EDT [facility] Blood Venous blood specimen / Unknown Venipuncture / Unknown 02/27/2025 11:53 AM EDT 02/27/2025 11:53 AM EDT us Louie Narayan MD LAB BLOOD ORDERABLES Fin al Result Performing Organization Address City/[facility]/ZIP Co de Phone Number [facility] [address] [place] [address], [place] [phone] * (ABNORMAL) CBC auto differential (02/27/2025 11:53 AM EDT) [facility] WBC 11.3(H) 4.8 - 10.8 K/mcL LAB HEMETOLOGY METHOD 02/27/2025 2:26 PM EDT [facility] RBC 5.20 4.50 - 5.50 M/[facility] LAB HEMETOLOGY METHOD 02/27/2025 2:26 PM EDT [facility] Hemoglobin 15.8 13.5 - 17.5 g/dL LAB HEMETOLOGY METHOD 02/27/2025 2:26 PM EDT [facility] Hematocrit 47.9 42.0 - 54.0 % LAB HEMETOLOGY METHOD 02/27/2025 2:26 PM EDT [facility] MCV 91.4 79.0 - 98.0 FL LAB HEMETOLOGY METHOD 02/27/2025 2:26 PM EDT [facility] MCH 30.2 27.0 - 32.0 pcg LAB HEMETOLOGY METHOD 02/27/2025 2:26 PM EDT [facility] MCHC 33.0 32.0 - 37.0 g/dL LAB HEMETOLOGY METHOD 02/27/2025 2:26 PM [facility] RDW 13.0 11.0 - 15.0 % LAB HEMETOLOGY METHOD 02/27/2025 2:26 PM EDT [facility] Platelets 354 130 - 400 K/mcL LAB HEMETOLOGY METHOD 02/27/2025 2:26 PM [facility] MPV 10.2 7.0 - 11.0 FL LAB HEMETOLOGY METHOD 02/27/2025 2:26 PM [facility] NRBC 0.0 <1.0 % LAB HEMETOLOGY METHOD 02/27/2025 2:26 PM EDT [facility] NRBC Absolute 0.00 <0.10 K/mcL LAB HEMETOLOGY METHOD 02/27/2025 2:26 PM [facility] Neutrophils Relative 62.5 % LAB HEMETOLOGY METHOD 02/27/2025 2:26 PM [facility] Lymphocytes Relative 25.8 % LAB HEMETOLOGY METHOD 02/27/2025 2:26 PM [facility] Monocytes Relative 7.9 % LAB HEMETOLOGY METHOD 02/27/2025 2:26 PM [facility] Eosinophils Relative 1.9 % LAB HEMETOLOGY METHOD 02/27[facility]25 [facility] Basophils Relative 1.3 % LAB HEMETOLOGY METHOD 02/27/2025 2:26 PM [facility] Immature Granulocytes Relative 0.6 % LAB HEMETOLOGY METHOD 02/27/2025 2:26 PM EDT [facility] Neutrophils Absolute 7.03(H) 1.50 - 7.00 K/mcL LAB HEMETOLOGY METHOD 02/27/2025 2:26 PM EDT [facility] Lymphocytes Absolute 2.90 1.00 - 5.00 K/mcL LAB HEMETOLOGY METHOD 02/27/2025 2:26 PM EDT [facility] Monocytes Absolute 0.89 0.20 - 1.00 K/mcL LAB HEMETOLOGY METHOD 02/27/2025 2:26 PM EDT [facility] Eosinophils Absolute 0.21 0.00 - 0.50 K/mcL LAB HEMETOLOGY METHOD 02/27/2025 2:26 PM EDT [facility] Basophils Absolute 0.15 0.00 - 0.20 K/mcL LAB HEMETOLOGY METHOD 02/27/2025 2:26 PM EDT [facility] Immature Granulocytes Absolute 0.07(H) 0.00 - 0.03 K/mcL LAB HEMETOLOGY METHOD 02/27/2025 2:26 PM EDT [facility] Blood Venous blood specimen / Unknown Venipuncture / Unknown 02/27/2025 11:53 AM EDT 02/27/2025 11:53 AM EDT Louie Narayan MD LAB BLOOD ORDERABLES Fin al Result [facility] [address] [place] [address], * Borrelia burgdorferi antibody (02/27/2025 11:53 AM EDT) [facility] Lyme Ab Negative Negative LAB CHEMISTRY METHOD 02/28/2025 8:49 AM EDT [facility] Comment: No laboratory evidence of infection with B. burgdorferi (Lyme disease). Negative results may occur in patients recently infected (<=14 days) with B. burgdorferi. If recent infection is suspected, repeat testing on a new sample collected in 7- 14 days is recommended. Blood Venous blood specimen / Unknown Venipuncture / Unknown 02/27/2025 11:53 AM EDT 02/27/2025 11:53 AM EDT us Louie Narayan MD LAB BLOOD ORDERABLES Fin al Result Performing Organization Address [facility] de Phone Number [facility] [address] [place] [address], [place] [phone] * Creatinine (02/27/2025 11:53 AM EDT) Creatinine 1.15 0.70 - 1.30 mg/dL LAB CHEMISTRY METHOD 02/27/2025 4:07 PM EDT [facility] eGFR 72 >=60 mL/min/1. 73m2 LAB CHEMISTRY METHOD 02/27/2025 4:07 PM EDT [facility] Comment:Calculation based on the Chronic Kidney Disease Epidemiology Collaboration (CKD-EPI) equation refit without adjustment for race. Blood Venous blood specimen / Unknown Venipuncture / Unknown 02/27/2025 11:53 AM EDT 02/27/2025 11:53 AM EDT us Louie Narayan MD LAB BLOOD ORDERABLES Fin al Result Performing Organization Address [facility] de Phone Number [facility] [address] [place] [address], [place] [phone] * (ABNORMAL) Vitamin D 25 hydroxy (02/27/2025 11:53 AM EDT) Vit D, 25-Hydroxy 28.0(L) 30.0 - 80.0 ng/mL LAB CHEMISTRY METHOD 02/27/2025 4:52 PM EDT [facility] Blood Venous blood specimen / Unknown Venipuncture / Unknown 02/27/2025 11:53 AM EDT 02/27/2025 11:53 AM EDT us Louie Narayan MD LAB BLOOD ORDERABLES Fin al Result Performing Organization Address [facility] Co de Phone Number [facility] [address] [place] [address], [place] [phone] * Sedimentation rate (02/27/2025 11:53 AM EDT) [facility] Sed Rate 5 0 - 20 mm/hr LAB HEMETOLOGY METHOD 02/27/2025 2:43 PM EDT [facility] Blood Venous blood specimen / Unknown Venipuncture / Unknown 02/27/2025 11:53 AM EDT 02/27/2025 11:53 AM EDT us Louie Narayan MD LAB BLOOD ORDERABLES Fin al Result Performing Organization Address [facility] Co de Phone Number [facility] [address] [place] [address], [place] [phone] * BUN (02/27/2025 11:53 AM EDT) [facility] BUN 11 5 - 25 mg/dL LAB CHEMISTRY METHOD 02/27/2025 4:07 PM EDT [facility] Blood Venous blood specimen / Unknown Venipuncture / Unknown 02/27/2025 11:53 AM EDT 02/27/2025 11:53 AM EDT us Louie Narayan MD LAB BLOOD ORDERABLES Fin al Result Performing Organization Address City/[facility]/ZIP Co de Phone Number [facility] [address] [place] [address], [place] [phone] * Vitamin B12 (02/27/2025 11:53 AM EDT) [facility] Vitamin B-12 470 250 - 900 pcg/mL LAB CHEMISTRY METHOD 02/27/2025 4:29 PM EDT [facility] Blood Venous blood specimen / Unknown Venipuncture / Unknown 02/27/2025 11:53 AM EDT 02/27/2025 11:53 AM EDT Louie Narayan MD LAB BLOOD ORDERABLES Fin al Result [facility] ([facility]) [facility] [address] [place] [address], [place] [phone] * MR Brain wo and w Contrast (02/21/2025 3:12 PM EDT) Anatomical Region Laterality Modality Head and Neck Magnetic Resonan ce 02/21/2025 11:3 5 PM EDT Narrative 02/21/2025 11:46 PM EDT MRI of the head without and with intravenous contrast. History worsening headaches. Examination was performed on 1.5 Estefany magnet without administration of intravenous contrast followed by postcontrast study after administration of 17 mL of DOTAREM. No prior studies are available for comparison. There is mild cortical atrophy. There is no evidence of midline shift, extra or intra-axial blood fluid collections. There is no visible masses, mass effect, focal areas of restricted diffusion, or magnetic susceptibility artifact . Ventricular system is symmetric and normal in size. Fourth ventricle and basal cisterns are midline and patent. There is empty sella. There are nonspecific foci of abnormally increased FLAIR signal in the subcortical, deep and periventricular white matter of both cerebral hemispheres without associated restricted diffusion or abnormal enhancement. Images obtained after administration of intravenous contrast revealed subtle enhancement in the quadrigeminal plate, inferior folliculi. No associated signal abnormalities on nonenhanced images. No restricted diffusion. The nature is uncertain. There is no other focal areas of abnormal enhancement in the brain and cerebellum. Paranasal sinuses revealed mild scattered mucosal thickening in the ethmoid air cells. There are scattered foci of fluid signal intensity in the right mastoid process. CONCLUSIONS: Nonspecific foci of abnormal FLAIR signal in the supratentorial white matter of both cerebral hemispheres without associated restricted diffusion or enhancement. Major differential diagnosis is between chronic small vessel ischemia as well as inflammatory/infectious etiology such as Lyme disease, multiple sclerosis, vasculitis among the other etiologies. Nonspecific subtle enhancement in the quadrigeminal plate, inferior follicular, better appreciated on the sagittal and coronal images. The nature is uncertain. Follow-up contrast-enhanced MRI of the head with intravenous contrast is recommended. Mild mucosal abnormalities in the ethmoid air cells and right mastoid process. -------- FINAL REPORT -------- Dictated By: Jessy Shea Dictated Date: 02/21/2025 23:35 ET Assigned Physician: Jessy Shea Reviewed and Electronically Signed By: Jessy Shea Signed Date: 02/21/2025 23:46 ET Workstation ID: [id number] Transcribed By: Self Edit Transcribed Date: 02/21/2025 23:35 ET Procedure Note Jessy Shea MD - 02/21/2025 MRI of the head without and with intravenous contrast. History worsening headaches. Examination was performed on 1.5 Estefany magnet without administration ofintravenous contrast followed by postcontrast study after administrationof 17 mL of DOTAREM. No prior studies are available for comparison. There is mild cortical atrophy. There is no evidence of midline shift,extra or intra-axial blood fluid collections. There is no visible masses,mass effect, focal areas of restricted diffusion, or magneticsusceptibility artifact . Ventricular system is symmetric and normal insize. Fourth ventricle and basal cisterns are midline and patent. There isempty sella. There are nonspecific foci of abnormally increased FLAIR signal in thesubcortical, deep and periventricular white matter of both cerebralhemispheres without associated restricted diffusion or abnormalenhancement. Images obtained after administration of intravenous contrast revealedsubtle enhancement in the quadrigeminal plate, inferior folliculi. Noassociated signal abnormalities on nonenhanced images. No restricteddiffusion. The nature is uncertain. There is no other focal areas ofabnormal enhancement in the brain and cerebellum. Paranasal sinuses revealed mild scattered mucosal thickening in theethmoid air cells. There are scattered foci of fluid signal intensity inthe right mastoid process. CONCLUSIONS: Nonspecific foci of abnormal FLAIR signal in thesupratentorial white matter of both cerebral hemispheres withoutassociated restricted diffusion or enhancement. Major differentialdiagnosis is between chronic small vessel ischemia as well asinflammatory/infectious etiology such as Lyme disease, multiple sclerosis,vasculitis among the other etiologies. Nonspecific subtle enhancement in the quadrigeminal plate, inferiorfollicular, better appreciated on the sagittal and coronal images. Thenature is uncertain. Follow- up contrast-enhanced MRI of the head withintravenous contrast is recommended. Mild mucosal abnormalities in the ethmoid air cells and right mastoidprocess. -------- FINAL REPORT -------- Dictated By: Jessy Shea Dictated Date: 02/21/2025 23:35 ET Assigned Physician: Jessy Shea Reviewed and Electronically Signed By: Jessy Shea Signed Date: 02/21/2025 23:46 ET Workstation ID: [id number] Transcribed By: Self Edit Transcribed Date: 02/21/2025 23:35 ET Francis FELICIANO [place] [facility] MRI PROCEDURES Final Result * (ABNORMAL) Lipid panel with reflex to direct LDL (12/26/2024 8:55 AM EDT) Cholesterol 104 0 - 200 mg/dL LAB CHEMISTRY METHOD 12/26/2024 2:01 PM [facility] Triglycerides 115 0 - 150 mg/dL LAB CHEMISTRY METHOD 12/26/2024 2:01 PM [facility] HDL 35(L) >=40 mg/dL LAB CHEMISTRY METHOD 12/26/2024 2:01 PM [facility] LDL Calculated 46 0 - 100 mg/dL LAB CHEMISTRY METHOD 12/26/2024 2:01 PM [facility] VLDL Cholesterol Mani 23 mg/dL LAB CHEMISTRY METHOD 12/26/2024 2:01 PM [facility] Non HDL Chol. (LDL+VLDL) 69 <145 mg/dL LAB CHEMISTRY METHOD 12/26/2024 2:01 PM [facility] Chol/HDL Ratio 3.0 0.0 - 4.4 LAB CHEMISTRY METHOD 12/26/2024 2:01 PM EDT [facility] Blood Venous blood specimen / Unknown Venipuncture / Unknown 12/26/2024 8:55 AM EDT 12/26/2024 8:55 AM EDT Francis FELICIANO LAB BLOOD ORDERABLES Maye l Result Performing Organization Address City/[facility]/ZIP Co de Phone Number [facility] [address] [place] [address], [place] [phone] * Microalbumin creatinine urine ratio (12/26/2024 8:55 AM EDT) Creatinine, Urine 214.0 mg/dL LAB CHEMISTRY METHOD 12/26/2024 11:52 AM EDT [facility] Microalb, Ur 9.0 0.0 - 29.0 mg/L LAB CHEMISTRY METHOD 12/26/2024 11:52 AM EDT [facility] Microalb/Creat Ratio 4 <30 mg/g creat LAB CHEMISTRY METHOD 12/26/2024 11:52 AM EDT [facility] Urine Urine specimen obtained by clean catch procedure / Unknown Non-blood Collection / Unknown 12/26/2024 8:55 AM EDT 12/26/2024 8:55 AM EDT Francis FELICIANO LAB URINE ORDERABLES Maye l Result Performing Organization Address City/[facility]/ZIP Co de Phone Number [facility] [address] [place] [address], [place] [phone] * Hemoglobin A1c (12/26/2024 8:55 AM EDT) Hemoglobin A1C 6.4 <6.5 % LAB CHEMISTRY METHOD 12/26/2024 1:38 PM EDT [facility] Mean Bld Glu Estim. 137 mg/dL LAB CHEMISTRY METHOD 12/26/2024 1:38 PM T [facility] Blood Venous blood specimen / Unknown Venipuncture / Unknown 12/26/2024 8:55 AM EDT 12/26/2024 8:55 AM EDT us Francis FELICIANO LAB BLOOD ORDERABLES Maye l Result [facility] [address] [place] [address], * (ABNORMAL) Comprehensive metabolic panel (12/26/2024 8:55 AM EDT) Sodium 137 133 - 145 mmol/L LAB CHEMISTRY METHOD 12/26/2024 1:58 PM [facility] Potassium 4.4 3.5 - 5.5 mmol/L LAB CHEMISTRY METHOD 12/26/2024 1:58 PM [facility] Chloride 107 96 - 110 mmol/L LAB CHEMISTRY METHOD 12/26/2024 1:58 PM [facility] CO2 27 21 - 32 mmol/L LAB CHEMISTRY METHOD 12/26/2024 1:58 PM [facility] Anion Gap 3 3 - 11 LAB CHEMISTRY METHOD 12/26/2024 1:58 PM [facility] Glucose 144(H) 70 - 100 mg/dL LAB CHEMISTRY METHOD 12/26/2024 1:58 PM [facility] BUN 16 5 - 25 mg/dL LAB CHEMISTRY METHOD 12/26/2024 1:58 PM [facility] Creatinine 1.16 0.70 - 1.30 mg/dL LAB CHEMISTRY METHOD 12/26/2024 1:58 PM [facility] eGFR 71 >=60 mL/min/1. 73m2 LAB CHEMISTRY METHOD 12/26/2024 1:58 PM [facility] Comment:Calculation based on the Chronic Kidney Disease Epidemiology Collaboration (CKD-EPI) equation refit without adjustment for race. BUN/Creatinine Ratio 13.8 LAB CHEMISTRY METHOD 12/26/2024 1:58 PM EDT [facility] Calcium 9.4 8.5 - 10.5 mg/dL LAB CHEMISTRY METHOD 12/26/2024 1:58 PM EDT [facility] AST (SGOT) 22 10 - 42 unit/L LAB CHEMISTRY METHOD 12/26/2024 1:58 PM EDT [facility] ALT (SGPT) 34 10 - 60 unit/L LAB CHEMISTRY METHOD 12/26/2024 1:58 PM EDT [facility] Alkaline Phosphatase 64 42 - 121 unit/L LAB CHEMISTRY METHOD 12/26/2024 1:58 PM EDT [facility] Total Protein 7.1 6.0 - 8.0 g/dL LAB CHEMISTRY METHOD 12/26/2024 1:58 PM EDT [facility] Albumin 4.2 3.2 - 5.0 g/dL LAB CHEMISTRY METHOD 12/26/2024 1:58 PM EDT [facility] Total Bilirubin 0.6 0.0 - 1.4 mg/dL LAB CHEMISTRY METHOD 12/26/2024 1:58 PM EDT [facility] Blood Venous blood specimen / Unknown Venipuncture / Unknown 12/26/2024 8:55 AM EDT 12/26/2024 8:55 AM EDT us Francis FELICIANO LAB BLOOD ORDERABLES Maye l Result [facility] [address] [place] [address], * XR Shoulder 2+ Views Right (12/24/2024 1:15 PM EDT) Anatomical Region Laterality Modality Upper Extremities, Shoulder Right Radi ographic Imaging 12/24/2024 5:21 PM EDT Impressions 12/24/2024 5:24 PM EDT Mild degenerative changes at acromioclavicular and glenohumeral joints. -------- FINAL REPORT -------- Dictated By: Michael Phelps Dictated Date: 12/24/2024 17:21 ET Assigned Physician: Michael Phelps Reviewed and Electronically Signed By: Michael Phelps Signed Date: 12/24/2024 17:24 ET Workstation ID: [id number] Transcribed By: Self Edit Transcribed Date: 12/24/2024 17:21 ET Narrative 12/24/2024 5:24 PM EDT XR SHOULDER 2+ VIEWS RIGHT Reason: pain Comparison: None FINDINGS: Mild degenerative changes at acromioclavicular joint. Mild narrowing of the glenohumeral joint space associated with small inferior marginal osteophytes. No displaced fracture. No soft tissue calcification adjacent to the humeral head. Procedure Note Michael Phelps MD - 12/24/2024 XR SHOULDER 2+ VIEWS RIGHT Reason: pain Comparison: None FINDINGS: Mild degenerative changes at acromioclavicular joint. Mild narrowing ofthe glenohumeral joint space associated with small inferior marginalosteophytes. No displaced fracture. No soft tissue calcificationadjacent to the humeral head. IMPRESSION: Mild degenerative changes at acromioclavicular and glenohumeral joints. -------- FINAL REPORT -------- Dictated By: Michael Phelps Dictated Date: 12/24/2024 17:21 ET Assigned Physician: Michael Phelps Reviewed and Electronically Signed By: Michael Phelps Signed Date: 12/24/2024 17:24 ET Workstation ID: [id number] Transcribed By: Self Edit Transcribed Date: 12/24/2024 17:21 ET us Juan Luis FELICIANO IMG XR PROCEDURES Final Result * Colonoscopy (04/04/2024) Colonoscopy no interpreta tion,abstr acted Anatomical Region Laterality Modality Other Historical Provider HEALTH MAINTENANCE Edited Result - Final * Diabetes Foot Exam (09/09/2023) Diabetes: Annual Foot Exam Completed Historical Provider MD HEALTH MAINTENANCE Final Result * Diabetes Eye Exam (08/30/2023) Pathologist [facility] Diabetes: Annual Retina Eye Exam Completed Historical Provider HEALTH MAINTENANCE Final Result * Hepatitis C Screening (02/21/2009) Pathologist [facility] Hepatitis C Screening abstracted Historical Provider HEALTH MAINTENANCE Final Result from Last 3 Months or Most Recently Relevant to Health Maintenance Insurance [facility] Care Teams Instrument Repairer Relationship Specialty Start Date End Date Francis Greene PA [address] [place] [id number] PCP - General Internal Medicine 07/20/24
[2025-03-07 01:13] LABS: MANUAL DIFF FLAG NO
[2025-03-07 01:14] LABS: Basophils Absolute Auto 0.1 X10*3/uL (0.0-0.2); Basophils Percent Auto 0.7 % (0-2); Eosinophils Absolute Auto 0.1 X10*3/uL (0.0-0.4); Eosinophils Percent Auto 0.7 % (0-4); Hematocrit 41.1 % (42.0-52.0); Hemoglobin 14.3 g/dl (14.0-18.0); Imm Gran Abs Auto 0.13 X10*3/uL (0.00-0.03); Imm Gran Pct Auto 0.9 % (0.0-0.4); Lymphocytes Absolute Auto 3.7 X10*3/uL (1.2-4.9); Lymphocytes Percent Auto 26.2 % (20-40); Mean Corpuscular HGB Conc 34.8 g/dl (31.0-36.0); Mean Corpuscular Hemoglobin 30.4 pg (27.0-33.0); Mean Corpuscular Volume 87.4 fL (80.0-98.0); Mean Platelet Volume 9.2 fL (9.4-12.4); Monocytes Percent Auto 7.4 % (2-11); Neutrophils Percent Auto 64.1 % (45-73); Platelet Count 288 X10*3/uL (160-400); Red Cell Distribution Width 13.1 % (11.0-16.0)
[2025-03-07 01:35] LABS: Alanine Aminotransferase 25 U/L (0-40); Albumin Level 4.4 g/dL (3.5-5.0); Alkaline Phosphatase 48 U/L (39-117); Anion Gap 13 (12-20); Aspartate Amino Transferase 20 U/L (5-37); Bilirubin Total 0.5 mg/dL (0.0-1.0); Blood Urea Nitrogen 14 mg/dL (9-16); Calcium 9.2 mg/dL (8.4-10.2); Carbon Dioxide 24 mmol/L (22-29); Chloride 109 mmol/L (96-108); Creatinine Clr Calc Pharmacy 64.4; Estimated Glomerular Filt Rate > 60; Glucose Random 168 mg/dL (60-115); Potassium 4.3 mmol/L (3.3-5.1); Sodium 142 mmol/L (135-145); Total Protein 6.7 g/dL (6.5-8.0)
[2025-03-07 01:39] LABS: B Type Natriuretic Peptide 35 pg/mL (<100)
[2025-03-07 01:43] LABS: Troponin-I High Sensitivity < 2.7 ng/L (<3.5-35.0)
[2025-03-07 03:17] LABS: Influenza A PCR NEGATIVE (Negative); Influenza B PCR NEGATIVE (Negative); Resp Syncy Virus RNA Qual PCR NEGATIVE (Negative); SARS COV2 PCR INHOUSE NEGATIVE (Negative)
--- NOTE | 2025-03-07 04:37 | PC.NURSE ---
Patient ambulated to a restroom and back to ED room with a steady gait noted, O2 Sat 98% on RA. Patient denies any pain at present, warm blanket provide to patient, call noonan placed within patient's reach. Plan of care ongoing.
[2025-03-07 05:45] VITALS: BP 135/77; PULSE 74; RESP 12; TEMP 36.2; O2SAT 99
--- NOTE | 2025-03-07 06:08 | ED_ITS ---
HPI - SOB/Dyspnea General Chief Complaint: Dyspnea Stated Complaint: sob, light headed Time Seen by Provider: 03/07/25 05:57 Source: patient Mode of arrival: ambulatory Limitations: no limitations History of Present Illness ED Provider: Dr. Komal Chambers HPI Narrative: patient comes to the emergency room complaining of shortness of breath worsening for months. Patient states that the shortness of breath is worse when he takes deep breaths or when he walks. Patient states that sometimes his left arm gets numb and tingling but not at this time. Patient states that he feels a bit of discomfort on the left side of the chest. Patient very anxious about his health. Patient is sure that something is wrong with him. Patient denies any history of DVTs. Related Data Home Medications ?Medication ?Instructions ?Recorded ?Confirmed aspirin 81 mg tablet,delayed 81 mg PO DAILY 10/27/20 0 11/06/24 release (Adult Low Dose Aspirin) metoprolol succinate 25 mg 25 mg PO DAILY 11/06/24 tablet,extended release 24 hr vibegron 75 mg tablet (Gemtesa) 75 mg PO DAILY 5 11/06/24 Previous Rx's ?Medication ?Instructions ?Recorded atorvastatin 80 mg tablet 80 mg PO BEDTIME 90 days #90 tabs 06/11/24 ezetimibe 10 mg tablet 10 mg PO DAILY 90 days #90 t abs 06/11/24 bempedoic acid 180 mg tablet 180 mg PO DAILY #90 tabs 06/22/24 (Nexletol) lorazepam 1 mg tablet (Ativan) 1 mg PO DAILY PRN anxie ty #5 tabs 03/07/25 Allergies Allergy/AdvReac Type Severity Reaction Status Date / Time naproxen (NAPROXEN) Allergy Unknown HIVES Verified 03/07/25 00:49 Review of Systems 2 Review of Systems: Constitutional : No Weight loss, No Fever, No Chills, No Night Sweats, No Fatigue, No Malaise ENT/Mouth : No Hearing loss, No Ear Pain, No Nasal Congestion, No Sinus Pain, No Hoarseness, No sore throat, No Rhinorrhea, No Swallowing Difficulty Eyes: No Eye Pain, No Swelling, No Redness, No Foreign Body, No Discharge, No Vision Changes Cardiovascular : complaining of shortness of breath at rest and with exertion, occasional sharp left-sided chest pain. Respiratory : No Cough, No Sputum, No Wheezing, No Smoke Exposure, No Dyspnea Gastrointestinal : No Nausea, No Vomiting, No Diarrhea, No Constipation, No abdominal Pain, No Hematochezia, No Melena Genitourinary : no irregular bleeding, No Dysuria, No Urinary Frequency, No Hematuria, No Urinary Incontinence, No Urgency, No Flank Pain, No Urinary Flow Changes, No Hesitancy Musculoskeletal : No joint pain, No Myalgias, No Joint Swelling Skin : No Skin Lesions, No rash Neuro : No Weakness, No Numbness, No Paresthesias, No Loss of Consciousness, No Dizziness, No Headache Psych : No Anxiety/Panic, No Depression, No SI/HI/AH/VH, No Social Issues, Heme/Lymph: No Bruising, No Bleeding,No Lymphadenopathy Endocrine : No Polyuria, No Polydipsia, No Temperature Intolerance [facility] Past Medical History Medical History Hyperlipidemia CAD (coronary artery disease) Surgical History Hx of neck surgery S/P shoulder surgery History of back surgery Family History Family History Father CAD (coronary artery disease) Mother Afib CAD (coronary artery disease) Social History Social History Alcohol intake: current Alcohol intake frequency: holidays/special occasions only Advance Directives: No Physical Exam 2 Vital Signs: Vital Signs: Last Vital Signs Temp 97.2 F 03/07/25 05:45 Pulse 74 03/07/25 05:45 Resp 12 03/07/25 05:45 BP 135/77 03/07/25 05:45 Pulse Ox 99 03/07/25 05:45 O2 Del Method Room Air 03/07/25 05:45 BMI result Body Mass Index 26.6 Const: Other: Appearance: Alert. Oriented X3. No acute distress. Eyes: Pupils equal, round and reactive to light. ENT: Pharynx normal. Neck: Normal inspection. Neck supple. No lymph nodes noted. No crepitus CVS: Normal heart rate and rhythm. Pulses normal. Normal S1 and S2 Respiratory: No respiratory distress. Breath sounds normal. No Wheezing. No rales Abdomen: Soft and nontender. No rigidity. No distention. Skin: Skin warm and dry. Normal skin color. Normal skin turgor. Extremities: No lower extremity edema. No Lacerations. No Rash Neuro: Oriented X 3. No motor deficit. No sensory deficit. Moving all extremities. No slurred speech. CN 2 through 12 grossly intact Psych: calm, cooperative, Seems a bit anxious Course Course Course Narrative: patient comes in complaining of shortness a breath for past month. Occasional left-sided chest pain. Patient denies fever chills. Patient concerned about his symptoms in the life of the intermittent shortness of breath at rest Reevaluation(s) Reevaluation #1: Patient was signed out to me at 07:00 pending CTA the CTA is negative. I sensitive troponin negative. He appeared very anxious I gave him 1 mg of lorazepam with dramatic improvement he will be discharged home follow-up with the primary care physician I will prescribe him 5 tablets of lorazepam to be taken p.r.n. Time: 10:56 Medications Administered Discontinued Medications Generic Name Dose Route Start Last Admin Trade Name Wilberq PRN Reason Stop Dose Admin Iohexol 75 ml 03/07/25 06:52 03/07/25 06:52 Iohexol 350 Mg/Ml 100 Ml Infus..Btl IV 03/07/25 06:53 75 ml ONCE ONE Administration Lorazepam 1 mg 03/07/25 08:52 03/07/25 09:14 Lorazepam 1 Mg Tablet PO 03/07/25 08:53 1 mg ONCE ONE Administration Medical Decision Making Medical Decision Making [facility] Narrative: my interpretation of labs: Patient's white blood cell count 14.0, no obvious source of the infection. Chemistry within normal limits, troponin negative. serology negative for influenza COVID and RSV patient's chest x-ray does not show any acute abnormalities patient's vitals completely stable patient very anxious, patient states that he is sure something is wrong. Given patient's symptoms, we will go ahead and order a CT scan to rule out pulmonary embolisms. sign out given to my colleague Dr. Komal GARZA pending Differential Diagnosis Differential Diagnoses: The differential diagnosis associated with the presentation includes ( CHF, deconditioning, PE) Admission/Observation Consideration of admission/observation: Escalation of care including admission/observation considered ( given patient's set of complaints and length of symptoms, observation was considered) Lab Data MDM Lab Attestation statement: I reviewed the patient's lab results. 03/07/25 01:06 03/07/25 01:06 Labs: Lab Results 03/07/25 03/07/25 Range/Units 01:06 02:36 WBC 14.0 H (4.8-10.8) X10*3/uL RBC 4.70 (4.60-5.80) X10*6/uL Hgb 14.3 (14.0-18.0) g/dl Hct 41.1 L (42.0-52.0) % MCV 87.4 (80.0-98.0) fL MCH 30.4 (27.0-33.0) pg MCHC 34.8 (31.0-36.0) g/dl RDW 13.1 (11.0-16.0) % Plt Count 288 (160-400) X10*3/uL MPV 9.2 L (9.4-12.4) fL Immature Gran % (Auto) 0.9 H (0.0-0.4) % Neut % (Auto) 64.1 (45-73) % Lymph % (Auto) 26.2 (20-40) % [place] % (Auto) 7.4 (2-11) % Eos % (Auto) 0.7 (0-4) % Baso % (Auto) 0.7 (0-2) % Lymph # (Auto) 3.7 (1.2-4.9) X10*3/uL [place] # (Auto) 1.0 (0.1-1.2) X10*3/uL Eos # (Auto) 0.1 (0.0-0.4) X10*3/uL Baso # (Auto) 0.1 (0.0-0.2) X10*3/uL Abs Immat Gran (auto) 0.13 H (0.00-0.03) X10*3/uL Absolute Neuts (auto) 9.0 H (2.0-8.3) x10*3/uL Absolute Nucleated RBC 0.000 (0.0-0.012) X10*3/uL Nucleated RBC % (auto) 0.0 (0.0-0.2) /100WBC Sodium 142 (135-145) mmol/L Potassium 4.3 (3.3-5.1) mmol/L Chloride 109 H (96-108) mmol/L Carbon Dioxide 24 (22-29) mmol/L Anion Gap 13 (12-20) BUN 14 (9-16) mg/dL Creatinine 1.15 (0.5-1.4) mg/dL Estim Creat Clear Calc 64.4 Estimated GFR > 60 Random Glucose 168 H (60-115) mg/dL Calcium 9.2 D (8.4-10.2) mg/dL Total Bilirubin 0.5 (0.0-1.0) mg/dL AST 20 (5-37) U/L ALT 25 (0-40) U/L Alkaline Phosphatase 48 (39-117) U/L Troponin I High Sens < 2.7 (<3.5-35.0) ng/L B-Natriuretic Peptide 35 (<100) pg/mL Total Protein 6.7 (6.5-8.0) g/dL Albumin 4.4 (3.5-5.0) g/dL Influenza Type A (PCR) NEGATIVE (Negative) Influenza Type B (PCR) NEGATIVE (Negative) RSV RNA Qual (PCR) NEGATIVE (Negative) SARS-CoV-2 RNA (RT-PCR) NEGATIVE (Negative) Independent Interpretation I performed an independent interpretation of an: Plain X-Ray Radiology Impression Discussion of test interpretation with radiology: I have reviewed the radiologist's reading. Radiologist Impression: The lungs appear clear. There is no consolidation, effusion, or pneumothorax. Cardiomediastinal silhouette is within normal limits. Critical Care Time Critical Care Time Critical Care Time: Yes Total Critical Care Time: 35 Attestation: I have personally provided critical care time. Time includes review of lab data, radiology results, discussion with consultants, and monitoring for potential decompensation. Intervention performed as documented. Discharge Plan Discharge Clinical Impression: Dyspnea, Atypical chest pain Patient Disposition: Home, Self-Care Instructions: Dyspnea (ED) Additional Instructions: FOLLOW-UP WITH YOUR PRIMARY CARE PHYSICIAN CALL TODAY AND MAKE AN APPOINTMENT RETURN IF YOU WORSE WE DISCUSSED THE CAT SCAN OF THE CHEST WAS NEGATIVE FOR BLOOD CLOT THE BLOOD TEST FOR HEART ATTACK WAS NEGATIVE Prescriptions: New lorazepam [Ativan] 1 mg tablet 1 mg PO DAILY PRN (Reason: anxiety) Qty: 5 0RF No Action atorvastatin 80 mg tablet 80 mg PO BEDTIME 90 Days Qty: 90 3RF ezetimibe 10 mg tablet 10 mg PO DAILY 90 Days Qty: 90 3RF Nexletol 180 mg tablet 180 mg PO DAILY Qty: 90 3RF aspirin [Adult Low Dose Aspirin] 81 mg tablet,delayed release (DR/EC) 81 mg PO DAILY metoprolol succinate 25 mg tablet extended release 24 hr 25 mg PO DAILY Gemtesa 75 mg tablet 75 mg PO DAILY Referrals: Francis Greene PA [Primary Care Provider, Internal Medicine] - 2 days Print Language: Estonian
--- NOTE | 2025-03-07 06:23 | PC.NURSE ---
20 G IV line established in R AC in anticipation of CTA PE.
[2025-03-07] MEDS: iohexoL 350 MG/ML 100 ML INFUS..BTL 75 ML IV (06:52)
[2025-03-07] MEDS: LORazepam 1 MG TABLET PO (09:14)
[2025-03-07 11:10] VITALS: BP 135/77; PULSE 74; RESP 12; TEMP 36.2; O2SAT 99
== END 2025-03-07 11:10 | disposition home or self-care (01) ==
PROVIDERS: Emergency Medicine; Emergency Provider Emergency Medicine; PCP Physician Assistant Medical
DX: R06.02 Shortness of breath (principal); R07.89 Other chest pain; R42 Dizziness and giddiness; R20.0 Anesthesia of skin; F41.9 Anxiety disorder, unspecified; I25.10 Atherosclerotic heart disease of native coronary artery without angina pectoris; Z03.818 Encounter for observation for suspected exposure to other biological agents ruled out; Z79.899 Other long term (current) drug therapy
CPT/HCPCS: 0241U; 36415; 71046; 71275; 80053; 83880; 84484; 85025; 93005; 99284; 99285; Q9967

== ENCOUNTER → 2025-03-07 01:00 | Outpatient (BNV) | payer BC, SELFPAY | PROVIDERS: Emergency Provider Emergency Medicine; PCP Physician Assistant Medical; Visit Provider Internal Medicine Cardiovascular Disease | DX: R06.02 Shortness of breath (principal) | CPT/HCPCS: 93010 ==

== ENCOUNTER 2025-04-09 13:31 | Outpatient (AMB) | payer BC, SELFPAY ==
[2025-04-09 13:43] VITALS: BP 114/82; PULSE 95; BMI 26.0
--- NOTE | 2025-04-09 13:43 | A.OFFVIS_ITS ---
Vital Signs 04/09/25 13:43 Height 5 ft 8 in Weight 171 lb 1.259 oz BMI 26.0 BP 114/82 Pulse 95 Pulse Source Pulse Oximeter Intake Visit Reasons: C f/up sob/ exhausted/ light head ns [place] Breaker Required: No Allergies naproxen (NAPROXEN) Allergy (Unknown, Verified 04/09/25 13:45) HIVES Medication List - Last Reconciled 04/09/25 by Jason Rice NP amitriptyline 10 mg PO BEDTIME aspirin (Adult Low Dose Aspirin) 81 mg PO DAILY atorvastatin 80 mg PO BEDTIME 90 days bempedoic acid (Nexletol) 180 mg PO DAILY cholecalciferol (vitamin D3) 50 mcg PO DAILY ezetimibe 10 mg PO DAILY 90 days metoprolol succinate ER 25 mg PO DAILY sertraline 25 mg PO DAILY vibegron (Gemtesa) 75 mg PO DAILY HPI Comments Details: This is a 64-year-old male patient coming in for a emergency room discharge follow-up visit. Patient with a history of hyperlipidemia, hypertension, and CAD who states that since January, patient also sudden developed shortness of breath and has been getting it with any kind of exertion. Patient was seen in the emergency room in February for this where he was ruled out for PE and ACS. Since then, patient has had multiple workup with primary care including ETT, echo, and pulmonary function tests which were all negative. Today, patient continues to report ongoing shortness of breath with any minimal exertion as well as palpitations. Patient denies any associated symptoms of chest pain, dizziness, orthopnea, PND, leg edema, presyncope, or syncope. Patient does have a strong family history of heart disease with his father who with an [place] at the age of 65. Patient is reporting compliance with all his medications. [facility] Medical History Hyperlipidemia CAD (coronary artery disease) Surgical History Hx of neck surgery S/P shoulder surgery History of back surgery Family History Father CAD (coronary artery disease) Mother Afib CAD (coronary artery disease) Social History Alcohol intake: current Alcohol intake frequency: holidays/special occasions only Review of Systems ENT Reports dizziness Card Denies chest pain, Denies chest pain at rest, Denies chest pain with activity, Denies rapid heart rate, Denies pedal edema, Denies edema, Denies leg edema, Denies lightheadedness, Denies palpitations, Denies dyspnea, Denies dyspnea on exertion and Denies orthopnea Resp Denies cough, Denies dyspnea and Denies dyspnea on exertion GI Denies hematochezia and Denies change in stool character Musc Denies abnormal gait, Reports limited range of motion, Reports muscle cramps, Denies muscle weakness, Denies numbness, Denies radiating pain into limb, Denies stiffness and Denies tingling Neuro Denies abnormal gait, Reports dizziness, Denies numbness and Denies tingling Endo Denies palpitations Physical Exam Vital Signs: Last Vital Signs Pulse 95 04/09/25 13:43 BP 114/82 04/09/25 13:43 BMI result Body Mass Index 26.0 Const General: cooperative, healthy appearing, comfortable and no acute distress Orientation/consciousness: patient oriented x3 HEENT Head: Yes normal to inspection Neck Neck: Yes normal visual inspection, Yes trachea midline and Yes supple Chest Chest palpation & inspection: normal inspection of the chest Resp Other: Shortness of breath with exertion Auscultation: clear to auscultation bilaterally, no crackles, no rales, no rhonchi and no wheezes Cardio Jugular venous distension: no JVD Palpation: normal PMI Rate: regular rate Rhythm: regular rhythm Heart sounds: S1 normal heart sound present, S2 normal heart sound present, no click, no gallops, no murmurs and no rubs Peripheral pulses: Peripheral pulses 2+ throughout GI Inspection: Yes normal to inspection Palpation (GI): Soft to palpation Auscultation: normal bowel sounds Skin General skin exam: no rashes or lesions noted Neuro General: patient oriented x3 Extrem General: Yes normal to inspection, No no pedal edema and No calf tenderness Psych Appearance: grossly normal Mental Status: mental status grossly normal Speech and movement: Normal speech and movement present Assessment & Plan Assessment & Plan (1) SOB (shortness of breath) on exertion: Code(s): R06.02 - Shortness of breath Category: Medical Plan: Recently in the emergency room for exertional shortness of breath that is worsening over time. ACS ruled out and PE ruled out on CT chest. CT chest showed minimal coronary calcifications. Following this, patient underwent testings with these PCP-reviewed from the print outpatient brings today. Pulmonary function test was negative. Echo study that showed normal LV systolic function without any wall motion abnormalities all pulmonary hypertension. Patient apparently also underwent an ETT, EKG section of the test missing from his print out. Given his risk factors, we will proceed with a coronary CTA to look for any coronary vessel disease. We will try to get this done urgently as possible. Continue low-dose baby aspirin, high-dose statin, and Zetia therapy. (2) Palpitations: Code(s): R00.2 - Palpitations Category: Medical Plan: Given his reports of palpitations with the shortness of breath, we will get a Holter study to look for any potential arrhythmia. (3) CAD (coronary artery disease): Code(s): I25.10 - Atherosclerotic heart disease of [place] coronary artery without angina pectoris Category: Medical Qualifiers: Associated angina: without angina Coronary Disease-Associated Artery/Lesion type: [place] artery [place] vs. transplanted heart: [place] heart Qualified Code(s): I25.10 - Atherosclerotic heart disease of [place] coronary artery without angina pectoris Plan: History of coronary artery disease on a coronary calcium score. LDL within goal. (4) HTN (hypertension): Code(s): I10 - Essential (primary) hypertension Category: Medical Plan: Blood pressure today is within normal limits. Advised monitoring blood pressures at home with a goal less than 130/80. (5) Hyperlipidemia: Code(s): E78.5 - Hyperlipidemia, unspecified Category: Medical Qualifiers: Hyperlipidemia type: familial hypercholesterolemia Qualified Code(s): E78.01 - Familial hypercholesterolemia Plan: Most recent LDL with an goal of less than 70. Reviewed on his patient portal on his phone. Advised heart healthy diet, laying low until further examination, med compliance and management of vascular risk factors. We will follow-up after completion of the test. In the interim, patient will call the office with any concerns or change in symptoms. Advised to seek ER care in case of exertional chest pain not resolved with rest. This note was generated using voice recognition software. While every effort has been made to ensure accuracy and proper assistant laboratory director, there may be occasional errors that could affect the content or meaning of the described symptoms. Orders: Orders CT Cardiac Coronary Angio Today I25.10 - Atherosclerotic heart disease of [place] coronary artery without angina pectoris Basic Metabolic Panel Today I25.10 - Atherosclerotic heart disease of [place] coronary artery without angina pectoris ECG 3 day holter monitor Today R00.2 - Palpitations, R06.02 - Shortness of breath Coding Level of Care Code Est Pt Level 4 (95774) Complex EM visit Add On G2211 Diagnoses SOB (shortness of breath) on exertion R06.02 Palpitations R00.2 Coronary artery disease involving [place] coronary artery of [place] heart without angina pectoris I25.10 Associated angina: without angina Coronary Disease-Associated Artery/Lesion type: [place] artery [place] vs. transplanted heart: [place] heart HTN (hypertension) I10 Familial hypercholesterolemia E78.01 Hyperlipidemia type: familial hypercholesterolemia Time Spent (min) 32 Comment Time spent in reviewing the chart, test results, assessment, counseling and documentation.
== END 2025-04-09 14:34 | disposition home or self-care (01) ==
LOC: HO.HCS 13:32
PROVIDERS: PCP Physician Assistant Medical
DX: R06.02 Shortness of breath (principal); R00.2 Palpitations; I25.10 Atherosclerotic heart disease of native coronary artery without angina pectoris; I10 Essential (primary) hypertension; E78.01 Familial hypercholesterolemia
CPT/HCPCS: 99214

== ENCOUNTER → 2025-04-09 14:34 | Outpatient (REF) | payer BC, SELFPAY ==
--- NOTE | 2025-04-09 14:39 | HM_ITS ---
Conclusion: 1. Patient was monitored for total period of 3 days 2. Baseline was normal sinus rhythm with average heart of 75 beats per minute 3. Rare PACs noted with total burden of 0.02% 4. No significant pauses noted 5. Patient marked the counter 4 times with symptoms of shortness of breath and lightheadedness correlating with sinus tachycardia MTDD
--- OUTSIDE RECORDS SUMMARY | 2025-04-09 15:48 | XMS_ITS | Clinical Summary ---
Author Organization [facility] Address [address] [place] [address] Phone Care Team Providers Care Manager [employer] Sales Name Role Phone Francis Greene Primary Care Provider [phone] Allergies Active Allergy Reactions Criticality Noted Date [...] (one) time each day. 30 tablet 03/01/20 25 026 Active sertraline (ZOLOFT) 25 mg tablet Take 1 tablet (25 mg total) by mouth 1 (one) time each day. 30 each 03/12/20 25 Active LORazepam (ATIVAN) 0.5 mg tablet Take 1 tablet (0.5 mg total) by mouth 2 (two) times a day if needed for anxiety. Max Daily Amount: 1 mg 60 tablet 03/12/20 25 Active LORazepam (ATIVAN) 1 mg tablet Take 1 tablet (1 mg total) by mouth 1 (one) time each day if needed for anxiety. Max Daily Amount: 1 mg 03/07/20 25 025 Discontinued Hospital, Clinic, or Other Facility Administered Medication Ordered Dose Route Frequency Start Date End Date Status lidocaine (XYLOCAINE) 1 % injection 1 mLIndications:Cervico-occip ital neuralgia,Trigger point 1 mL IDrm Once 03/11/2025 03/11/2025 Ended dexAMETHasone (DECADRON) injection 10 mgIndications:Cervico-occip ital neuralgia,Trigger point 10 mg IM Once 03/11/2025 03/11/2025 Ended Active Problems Problem Noted Date Diagnosed Date Elevated blood pressure reading 06/27/2024 Coronary artery disease due to lipid rich plaque 09/09/2023 Type 2 diabetes mellitus wit hout complication, without long-term current use of insulin ([facility] V24, [facility] V28) 06/03/2023 Chronic neck pain 08/31/2011 Hypertrophy of prostate without urinary obstruct ion 05/13/2006 Hyperlipidemia 04/18/2006 Encounters Date Type Department Care Team Description 04/05/2025 7:30 AM EDT Ancillary Procedure [facility] [address] [place] [address] Hospital discharge follow-up; Coronary artery disease due to lipid rich plaque; Hyperlipidemia, unspecified hyperlipidemia type; Type 2 diabetes mellitus without complication, without long-term current use of insulin ([facility] V24, [facility] V28); SOB (shortness of breath); Other chest pain; Abnormal brain MRI 04/04/2025 Telephone Adult Medicine [address] [phone] Francis Greene PA Referral (Cardiology Referral) 03/28/[address] [phone] Francis Greene PA 03/21/2025 11:00 AM EDT Ancillary Procedure [facility] [address] [place] [address] Hospital discharge follow-up; Coronary artery disease due to lipid rich plaque; Hyperlipidemia, unspecified hyperlipidemia type; Type 2 diabetes mellitus without complication, without long-term current use of insulin ([facility] V24, [facility] V28); SOB (shortness of breath); Other chest pain; Abnormal brain MRI 03/21/2025 7:03 AM EDT - 03/21/2025 11:59 PM EDT Hospital Encounter [facility] [address] [place] [phone] Discharge Disposition: Home or Self Care 03/12/2025 12:45 PM EDT Office Visit [address] [phone] Francis Greene, PA Hospital discharge follow-up (Primary Dx); Coronary artery disease due to lipid rich plaque; Hyperlipidemia, unspecified hyperlipidemia type; Type 2 diabetes mellitus without complication, without long-term current use of insulin ([facility] V24, [facility] V28); SOB (shortness of breath); Other chest pain; Abnormal brain MRI 03/11/2025 12:00 PM EDT Procedure visit [facility] [address] [facility] [address] [place] [phone] Louie Narayan MD Cervico-occipital neuralgia (Primary Dx); Trigger point 03/07/2025 Telephone Adult Medicine [address] [place] [phone] Francis Greene PA Hospital Follow-up (ER) 03/04/2025 Telephone [facility] [address] [place] [address] Mine Barajas [place] 02/27/2025 10:40 AM EDT Consult [facility] [address] [place] [address] Louie Narayan MD Occipital neuralgia of right side (Primary Dx); Abnormal finding on MRI of brain; Worsening headaches 02/23/2025 Telephone Adult Medicine [address] [phone] Francis Greene PA 02/21/2025 2:16 PM EDT - 02/21/2025 11:59 PM EDT Hospital Encounter Radiology Department - [address] [phone] Worsening headaches Discharge Disposition: Home or Self Care 02/15/2025 Telephone Adult Medicine [address] [phone] Francis Greene, PA from Last 3 Months Immunizations Name Administration [...] Breast cancer Aunt 70 Heart attack Father [place] x 2 Other: some of type of [...] care for your loved ones. For example, children's program coordinator or elderly care for an older adult? [...] Sign Reading Time Taken Comments Blood Pressure 135/75 04/05/2025 7:37 AM EDT Pulse 88 03/12/2025 12:43 PM EDT Temperature 36.8 C (98.3 F) 03/12/2025 12:43 PM EDT Respiratory Rate 17 03/12/2025 12:43 PM EDT Oxygen Saturation 95% 02/27/2025 10:45 AM EDT Inhaled Oxygen Concentration - - Weight 76.2 kg (168 lb) 04/05/2025 7:37 AM EDT Height 172.7 cm (5' 8 ) 04/05/2025 7:37 AM EDT Body Mass Index 25.54 04/05/2025 7:37 AM EDT Plan of Treatment Upcoming Encounters Date Type Department Care Team (Late st Contact Info) Description 04/22/2025 9:00 AM EDT Office Visit Adult Medicine [address] [phone] Francsi Greene PA [address] [place] [address] 05/16/2025 10:45 AM EDT Appointment Radiology Department - [address] [phone] 06/06/2025 9:00 AM EDT Office Visit [facility] [address] [phone] Louie Narayan MD [facility] [address] [place] [phone] 06/25/2025 8:30 AM EDT Office Visit Adult Medicine [address] [phone] Francis Greene PA [address] [place] [address] Health Maintenance Due Date Last Done Comments HIV Screening 08/28/2022 COVID-19 Vaccine ( season) 2024 07/21/2022, 08/29/2021, 10/19/2020, Additional history exists Influenza Vaccine (#1) 2025 , 05/31/2023, 07/21/2022, Additional history exists Diabetes: Annual Retina Eye Exam 06/07/2025 06/07/2024, 08/30/2023 Diabetes: Blood Sugar Control Test (HGBA1C) 06/27/2025 12/26/2024, 06/11/2024, 06/11/2024, Additional history exists Social Influencers of Health Screening 09/17/2025 09/17/2024 Diabetes: Annual Urine Albumin-Creatinine Ratio (uACR) 12/26/2025 [...] 09/09/2023 Pneumococcal Vaccine: 50+ Years Completed 09/09/2023 Zoster Vaccines Completed 01/24/2024, 11/08/2023 Depression Screening Completed 12/17/2024 HIB Vaccines Aged Out No longer eligi [...] this topic Medical Devices Implanted Type Area Divisional Merchandising Manager Device Identifier Shelf Expiration Date Model / Serial / Lot Mesh 3dmax Lght Lg 4.1x6.2 L 4.1x6.2in - Sn/A - [id number] Implanted:Qty: 1 on 08/02/2024 by Tevin Leary DO at [facility] Surgical Mesh Sling Implants Left: Inguinal CR BARD - [employer] 11/16/2028 [id number] / N/A / [id number] [employer] Fix8 Implanted:Qty: 1 on 08/02/2024 by Tevin Leary DO at [facility] Left: Inguinal [employer] 11/16/2025 [id number] / N/A / [id number] Procedures Procedure Name Priority Date/Time Associated Diagnosis Comments STRESS TEST ONLY EXERCISE Routine 04/05/2025 8:24 AM EDT Hospital discharge follow-up Coronary artery disease due to lipid rich plaque Hyperlipidemia, unspecified hyperlipidemia type Type 2 diabetes mellitus without complication, without long-term current use of insulin ([facility] V24, [facility] V28) SOB (shortness of breath) Other chest pain Abnormal brain MRI TRANSTHORACIC ECHOCARDIOGRAM (TTE) COMPLETE Routine 03/21/2025 11:36 AM EDT Hospital discharge follow-up Coronary artery disease due to lipid rich plaque Hyperlipidemia, unspecified hyperlipidemia type Type 2 diabetes mellitus without complication, without long-term current use of insulin ([facility] V24, [facility] V28) SOB (shortness of breath) Other chest pain Abnormal brain MRI HC SPIROMETRY BRONCHODILATION RESPONSIVENESS PRE/POST BRONCHODILATOR ADMINISTRATION Routine 03/21/2025 8:05 AM EDT Hospital discharge follow-up Coronary artery disease due to lipid rich plaque Hyperlipidemia, unspecified hyperlipidemia type Type 2 diabetes mellitus without complication, without long-term current use of insulin ([facility] V24, [facility] V28) SOB (shortness of breath) Other chest pain Abnormal brain MRI EXTERNAL CT REPORT 03/07/2025 EXTERNAL XRAY REPORT 03/07/2025 CBC WITH AUTO DIFFERENTIAL Routine 02/27/2025 11:53 [...] Routine 02/21/2025 3:12 PM EDT Worsening headaches MICROALBUMIN CREATININE URINE RATIO Routine 12/26/2024 8:55 AM EDT Cervical radicular pain Type 2 diabetes mellitus without complication, without long-term current use of insulin ([facility] V24, [facility] V28) Hyperlipidemia, unspecified hyperlipidemia type Coronary artery disease due to lipid rich plaque HEMOGLOBIN A1C Routine 12/26/2024 8:55 AM EDT Cervical radicular pain Type 2 diabetes mellitus without complication, without long-term current use of insulin ([facility] V24, [facility] V28) Hyperlipidemia, unspecified hyperlipidemia type Coronary artery disease due to lipid rich plaque LIPID PANEL WITH REFLEX TO DIRECT LDL Routine 12/26/2024 8:55 AM EDT Cervical radicular pain Type 2 diabetes mellitus without complication, without long-term current use of insulin ([facility] V24, [facility] V28) Hyperlipidemia, unspecified hyperlipidemia type Coronary artery disease due to lipid rich plaque COLONOSCOPY Routine 04/04/2024 DIABETES FOOT EXAM Routine 09/09/2023 DIABETES EYE EXAM Routine 08/30/2023 HEPATITIS C SCREENING Routine 02/21/2009 from Last 3 Months or Most Recently Relevant to Health Maintenance Results * Exercise stress test (04/05/2025 8:24 AM EDT) Pathologist [facility] [place] Exercise/injec tion duration (min) 7 CV STRESS ONLY Exercise/injec tion duration (sec) 0 CV STRESS ONLY Peak SBP 160 mmHg CV STRESS ONLY Peak DBP 82 mmHg CV STRESS ONLY Peak HR 173 bpm CV STRESS ONLY Baseline HR 100 bpm CV STRES S ONLY Baseline SBP 135 mmHg CV STRE SS ONLY Baseline DBP 75 mmHg CV STRE SS ONLY Estimated workload 10.1 METS CV STRESS ONLY Percent HR 109 % CV STRESS ONLY Rate Pressure Product 27,680.0 mmHg*bpm CV STRESS ONLY Target HR 134 bpm CV STRESS ONLY Angina Index 0 CV STRE SS ONLY Max HR Percent 109 % CV ST RESS ONLY O2 sat rest 99 % CV STRES S ONLY Anatomical Region Laterality Modality Cardiac Diagnost ic 04/05/2025 7:44 AM EDT 04/05/2025 8:23 AM EDT Narrative 04/05/2025 5:49 PM EDT No EKG evidence of ischemia at a maximal heart rate and adequate functional capacity. Exercise capacity was average. Normal blood pressure response. Exaggerated heart rate response. The test was stopped because the patient experienced fatigue and shortness of breath. The patient reported dyspnea during the stress test which persistend well into recovery. 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 Stress Findings A Viraj protocol stress test was performed. Overall, the patient's exercise capacity was average. Total stress time was 7 min and 0 sec. The patient experienced no angina during the test. The test was stopped because the patient experienced fatigue and shortness of breath. The patient's hemodynamic response was adequate for diagnosis. Blood pressure demonstrated a normal response. Heart rate demonstrated a exaggerated response. The patient reported dyspnea during the stress test which persistend well into recovery. ECG 64 yo male with a history of CAD, HTN, DM, former tobacco use and HLD referred for CANALES and CP. The ECG shows normal sinus rhythm with IRBBB. The ECG axis is normal. Non- specific T-wave abnormalities noted at baseline. There were no arrhythmias during stress. There is no significant ST changes during stress. There were no arrhythmias during recovery. The result of the stress ECG was negative for ischemia. Francis FELICIANO CV STRESS PROCEDURES Maye beavers Result * (ABNORMAL) TRANSTHORACIC ECHOCARDIOGRAM (TTE) COMPLETE (03/21/2025 11:36 AM EDT) Left Atrium Minor [place] 4.3 cm CV PACS Left Atrium Major [place] 4.6 cm CV PACS LA Area Sys (A2C) 12 cm2 CV PACS LA Area Sys (A4C) 11 cm2 CV PACS LA Volume (BP) 26 mL CV PACS RA Area 11.3 cm2 CV PACS RA 2D Volume 22 mL CV PACS AV Mean Gradient 4 mmHg CV PACS Ao VTI 24.2 cm CV PACS AV Peak Mert 1.5 m/s CV PACS AV Peak Gradient 9 mmHg CV PACS AV Area Continuity Equation 2.4 cm2 CV PACS AV Area Peak Velocity 2.3 cm2 CV PACS Aortic Arch 2.8 cm CV PACS Ascending Aorta 3.4 cm CV PACS Aortic Sinus Valsalva 3.5 cm CV PACS IVC Proximal 1.4 cm CV PACS IVSD 1.2(A) 0.6 - 1.0 cm CV PACS LVIDD 3.4(A) 4.2 - 5.8 cm CV PACS LVIDS 2.2(A) 2.5 - 4.0 cm CV PACS LVOT Diameter 2.0 cm CV PACS LVOT Mean Grad 2 mmHg CV PACS LVOT Peak VTI 18.7 cm CV PACS LVOT Mean Mert 0.7 m/s CV PACS LVOT Peak Mert 1.1 m/s CV PACS LVOT Peak Gradient 5 mmHg CV PACS LVPWD 1.1(A) 0.6 - 1.0 cm CV PACS MV E' Tissue Velocity Lateral 5 cm/s CV PACS MV E' Tissue Velocity Septal 6 cm/s CV PACS LVOT Area 3.1 cm2 CV PACS LVOT Stroke Volume 59 mL CV PACS MV Deceleration [place] 3.1 m/s2 CV PACS E Wave Deceleration Time 206 119 - 242 ms CV PACS MV PHT 60 ms CV PACS MV Peak A Mert 0.80 m/s CV PACS MV Peak E Mert 0.63 m/s CV PACS MV Area PHT 3.7 cm2 CV PACS PV Acceleration Time 61 ms CV PACS PV Acceleration Time 61 ms CV PACS PV Peak Velocity 0.8 m/s CV PACS PV Peak Gradient 2 mmHg CV PACS RV Diastolic Basal Dimension 3.3 2.5 - 4.1 cm CV PACS TAPSE 23 mm CV PACS E/E' Ratio Septal 11 CV PACS E/E' Ratio Averaged 12 CV PACS LVOT Stroke Index 31 mL/m2 CV PACS Relative Wall Thickness ratio 0.65 CV PACS LVOT:AV VTI Index 0.77 CV PACS FS 35 % CV PACS LV Mass 2D 122 g CV PACS Ascending Aorta Index 1.79 cm/m2 CV PACS LVOT flow 220 mL/s CV PACS RA 2D Volume Index 12 mL/m2 CV PACS EFREN Index (VTI) 1.28 cm2/m2 CV PACS EFREN Index (Pk Mert) 1.21 cm2/m2 CV PACS LVIDD Index 1.79 cm/m2 CV PACS LVIDS Index 1.16 cm/m2 CV PACS AV Velocity Ratio 0.73 CV PACS E/A Ratio 0.8 CV PACS E/E' Ratio Lateral 13 CV PACS LA Volume Index (BP) 14 mL/m2 CV PACS LV Mass Index 2D 64 g/m2 CV PACS BSA 1.91 m2 CV PACS Est. RA Pressure 3 mmHg CV PACS Anatomical Region Laterality Modality Ultrasound Narrative 04/03/2025 1:25 PM EDT Left ventricle cavity size is normal. There is mild hypertrophy. Systolic function is normal with an ejection fraction of 55-60%. There are no regional LV wall motion abnormalities. No hemodynamically significant valvular dysfunction There is no prior study available for comparison Left Ventricle Left ventricle cavity size is normal. There is mild hypertrophy. Systolic function is normal with an ejection fraction of 55-60%. There are no regional LV wall motion abnormalities. Right Ventricle Right ventricle cavity appears normal. Systolic function is normal. Left Atrium Left atrium cavity size is normal. Right Atrium Right atrium cavity is normal. Mitral Valve The leaflets are mildly thickened. There is annular calcification. There is mild regurgitation. There is no evidence of mitral valve stenosis. Tricuspid Valve Tricuspid valve structure is normal. Tricuspid regurgitation is inadequate for estimation of right ventricular systolic pressure. There is no evidence of tricuspid valve stenosis. Aortic Valve The aortic valve is trileaflet. The leaflets are mildly thickened. There is no regurgitation or stenosis. Pulmonic Valve Visualized portions of the pulmonic valve appear normal. No significant pulmonic valve regurgitation. There is no evidence of pulmonic valve stenosis. Ascending Aorta The Sinus of Valsalva is (3.5 cm). The ascending aorta is (3.4 cm). The transverse aorta is (2.8 cm). Pericardium Pericardium appears normal. Study Details Overall the study quality was adequate. Francis FELICIANO CV ECHO PROCEDURES Final Result * Pulmonary function testing: Spirometry with Bronchodilator, Spirometry, Vital Capacity Test (03/21/2025 8:05 AM EDT) Impressions Jen Duarte MD - 03/21/2025 8:13 AM EDT Pulmonary function test interpretation. Spirometry done today reveals FEV1 of 3.61 which is 117% of the predicted value, FVC is 4.83 which is 122% of the predicted value, FEV1 to FVC ratio is 95% of the predicted value, there is no bronchodilator response. Flow volume is consistent with normal pattern. Static lung volumes are within normal limits except residual volume which is moderately reduced. Diffusion lung capacity is mildly reduced and remained mildly reduced after correction for alveolar volume. This study is consistent with normal spirometry and lung volumes there is isolated reduction in diffusion lung capacity for which clinical correlation is advised. Recommend to obtain an echocardiogram and nocturnal pulse oximetry to rule out secondary pulmonary hypertension and hypoxemia. Clinical correlation however is recommended. Francis FELICIANO PFT ORDERABLES Final Res ult * External Xray Report (03/07/2025) Anatomical Region Laterality Modality Radiographic Yoli ging Provider [facility] XR PROCEDURES Final Result * External CT Report (03/07/2025) Anatomical Region Laterality Modality Computed Tomogra phy Provider [facility] PROCEDURES Final Result * (ABNORMAL) Sjogrens antibodies, SSA and SSB (02/27/2025 11:53 AM EDT) Sjogren's SS-A (Ro) Ab Quant 1 <20 units LAB CHEMISTRY METHOD 03/03/2025 10:37 AM EDT [facility] Sjogren's SS-A (Ro) Ab Negative Negative LAB CHEMISTRY METHOD 03/03/2025 10:37 AM EDT [facility] Sjogren's SS-B (La) Ab Quant 36(H) <20 units LAB CHEMISTRY METHOD 03/03/2025 10:37 AM EDT [facility] Sjogren's SS-B (La) Ab Positive(A) Negative LAB CHEMISTRY METHOD 03/03/2025 10:37 AM EDT [facility] Blood Venous blood specimen / Unknown Venipuncture / Unknown 02/27/2025 11:53 AM EDT 02/27/2025 11:53 AM EDT us Louie Narayan MD LAB BLOOD ORDERABLES Fin al Result Performing Organization Address City/[facility]/ZIP Co de Phone Number [facility] [address] [place] [address], [place] [phone] * FERNANDO IFA with titer and pattern (02/27/2025 11:53 AM EDT) Pathologist [facility] [place] FERNANDO Negative Negative 02/28/2025 2:25 PM EDT [facility] Blood Venous blood specimen / Unknown Venipuncture / Unknown 02/27/2025 11:53 AM EDT 02/27/2025 11:53 AM EDT us Louie Narayan MD LAB BLOOD ORDERABLES Fin al Result Performing Organization Address City/[facility]/ZIP Co de Phone Number [facility] [address] [place] [address], [place] [phone] * (ABNORMAL) CBC auto differential (02/27/2025 11:53 AM EDT) [facility] WBC 11.3(H) 4.8 - 10.8 K/mcL LAB HEMETOLOGY METHOD 02/27/2025 2:26 PM EDT [facility] RBC 5.20 4.50 - 5.50 M/mcL LAB HEMETOLOGY METHOD 02/27/2025 2:26 PM EDT [facility] Hemoglobin 15.8 13.5 - 17.5 g/dL LAB HEMETOLOGY METHOD 02/27/2025 2:26 PM EDT [facility] Hematocrit 47.9 42.0 - 54.0 % LAB HEMETOLOGY METHOD 02/27/2025 2:26 PM EDT [facility] MCV 91.4 79.0 - 98.0 FL LAB HEMETOLOGY METHOD 02/27/2025 2:26 PM [facility] MCH 30.2 27.0 - 32.0 pcg LAB HEMETOLOGY METHOD [facility] MCHC 33.0 32.0 - 37.0 g/dL LAB HEMETOLOGY METHOD 02/27/2025 2:26 PM [facility] RDW 13.0 11.0 - 15.0 % LAB HEMETOLOGY METHOD 02/27/2025 2:26 PM [facility] Platelets 354 130 - 400 K/mcL LAB HEMETOLOGY METHOD 02/27/2025 2:26 PM [facility] MPV 10.2 7.0 - 11.0 FL LAB HEMETOLOGY METHOD 02/27/2025 2:26 PM [facility] NRBC 0.0 <1.0 % LAB HEMETOLOGY METHOD 02/27/2025 2:26 PM [facility] NRBC Absolute 0.00 <0.10 K/mcL LAB HEMETOLOGY METHOD 02/27/2025 2:26 PM [facility] Neutrophils Relative 62.5 % LAB HEMETOLOGY METHOD 02/27/2025 2:26 PM [facility] Lymphocytes Relative 25.8 % LAB HEMETOLOGY METHOD 02/27/2025 2:26 PM [facility] Monocytes Relative 7.9 % LAB HEMETOLOGY METHOD 02/27/2025 2:26 PM [facility] Eosinophils Relative 1.9 % LAB HEMETOLOGY METHOD 02/27/2025 2:26 PM EDT [facility] Basophils Relative 1.3 % LAB HEMETOLOGY METHOD 02/27/2025 2:26 PM EDT [facility] Immature Granulocytes Relative 0.6 % LAB HEMETOLOGY METHOD 02/27/2025 2:26 PM EDT [facility] Neutrophils Absolute 7.03(H) 1.50 - 7.00 K/mcL LAB HEMETOLOGY METHOD 02/27/2025 2:26 PM EDT [facility] Lymphocytes Absolute 2.90 1.00 - 5.00 K/mcL LAB HEMETOLOGY METHOD 02/27/2025 2:26 PM EDT [facility] Monocytes Absolute 0.89 0.20 - 1.00 K/mcL LAB HEMETOLOGY METHOD 02/27/2025 2:26 PM EDT [facility] Eosinophils Absolute 0.21 0.00 - 0.50 K/mcL LAB HEMETOLOGY METHOD 02/27/2025 2:26 PM EDT [facility] Basophils Absolute 0.15 0.00 - 0.20 K/mcL LAB HEMETOLOGY METHOD 02/27/2025 2:26 PM EDT [facility] Immature Granulocytes Absolute 0.07(H) 0.00 - 0.03 K/mcL LAB HEMETOLOGY METHOD 02/27/2025 2:26 PM EDT [facility] Blood Venous blood specimen / Unknown Venipuncture / Unknown 02/27/2025 11:53 AM EDT 02/27/2025 11:53 AM EDT Louie Narayan MD LAB BLOOD ORDERABLES Fin al Result [facility] [address] [place] [address], * Borrelia burgdorferi antibody (02/27/2025 11:53 AM EDT) [facility] [place] Ab Negative Negative LAB CHEMISTRY METHOD 02/28/2025 8:49 AM EDT [facility] Comment: No laboratory evidence of infection [...] ORDERABLES Fin al Result Performing Organization Address [facility] de Phone Number [facility] [address] [place] [address], * Creatinine (02/27/2025 11:53 AM EDT) [facility] Creatinine 1.15 0.70 - 1.30 mg/dL LAB CHEMISTRY METHOD 02/27/2025 4:07 PM EDT [facility] eGFR 72 >=60 mL/min/1. 73m2 LAB CHEMISTRY METHOD 02/27/2025 4:07 PM EDT [facility] Comment:Calculation based on the Chronic Kidney Disease Epidemiology Collaboration (CKD-EPI) equation refit without adjustment for race. Blood Venous blood specimen / Unknown Venipuncture / Unknown 02/27/2025 11:53 AM EDT 02/27/2025 11:53 AM EDT us Louie Narayan MD LAB BLOOD ORDERABLES Fin al Result Performing Organization Address [facility] Co de Phone Number [facility] [address] [place] [address], [place] [phone] * (ABNORMAL) Vitamin D 25 hydroxy (02/27/2025 11:53 AM EDT) Vit D, 25-Hydroxy 28.0(L) 30.0 - 80.0 ng/mL LAB CHEMISTRY METHOD 02/27/2025 4:52 PM EDT [facility] Blood Venous blood specimen / Unknown Venipuncture / Unknown 02/27/2025 11:53 AM EDT 02/27/2025 11:53 AM EDT us Louie Narayan MD LAB BLOOD ORDERABLES Fin al Result Performing Organization Address [facility] [facility] de Phone Number [facility] [address] [place] [address], [place] [phone] * Sedimentation rate (02/27/2025 11:53 AM EDT) [facility] Sed Rate 5 0 - 20 mm/hr LAB HEMETOLOGY METHOD 02/27/2025 2:43 PM EDT [facility] Blood Venous blood specimen / Unknown Venipuncture / Unknown 02/27/2025 11:53 AM EDT 02/27/2025 11:53 AM EDT us Louie Narayan MD LAB BLOOD ORDERABLES Fin al Result Performing Organization Address [facility] de Phone Number [facility] [address] [place] [address], [place] [phone] * BUN (02/27/2025 11:53 AM EDT) [facility] BUN 11 5 - 25 mg/dL LAB CHEMISTRY METHOD 02/27/2025 4:07 PM EDT [facility] Blood Venous blood specimen / Unknown Venipuncture / Unknown 02/27/2025 11:53 AM EDT 02/27/2025 11:53 AM EDT us Louie Narayan MD LAB BLOOD ORDERABLES Fin al Result Performing Organization Address City/[facility]/ZIP Co de Phone Number [facility] [address] [place] [address], [place] [phone] * Vitamin B12 (02/27/2025 11:53 AM EDT) Vitamin B-12 470 250 - 900 pcg/mL LAB CHEMISTRY METHOD 02/27/2025 4:29 PM EDT [facility] Blood Venous blood specimen / Unknown Venipuncture / Unknown 02/27/2025 11:53 AM EDT 02/27/2025 11:53 AM EDT Louie Narayan MD LAB BLOOD ORDERABLES Fin al Result Performing Organization Address [facility]/State/ZIP Co de Phone Number [facility] [address] [place] [address], [place] [phone] * MR Brain wo and w Contrast [...] Signed Date: 02/21/2025 23:46 ET Workstation ID: [id number] Transcribed By: Self Edit Transcribed Date: 02/21/2025 [...] Signed Date: 02/21/2025 23:46 ET Workstation ID: [id number] Transcribed By: Self Edit Transcribed Date: 02/21/2025 23:35 ET Francis FELICIANO [facility] [place]ED[facility] Final Result * (ABNORMAL) Lipid panel with reflex to direct LDL (12/26/2024 8:55 AM EDT) Cholesterol 104 0 - 200 mg/dL LAB CHEMISTRY METHOD 12/26/2024 2:01 PM EDT [facility] Triglycerides 115 0 - 150 mg/dL LAB CHEMISTRY METHOD 12/26/2024 2:01 PM EDT [facility] HDL 35(L) >=40 mg/dL LAB CHEMISTRY METHOD 12/26/2024 2:01 PM EDT [facility] LDL Calculated 46 0 - 100 mg/dL LAB CHEMISTRY METHOD 12/26/2024 2:01 PM [facility] VLDL Cholesterol Mani 23 mg/dL LAB CHEMISTRY METHOD 12/26/2024 2:01 PM EDT [facility] Non HDL Chol. (LDL+VLDL) 69 <145 mg/dL LAB CHEMISTRY METHOD 12/26/2024 2:01 PM EDT [facility] Chol/HDL Ratio 3.0 0.0 - 4.4 LAB CHEMISTRY METHOD 12/26/2024 2:01 PM EDT [facility] Blood Venous blood specimen / Unknown Venipuncture / Unknown 12/26/2024 8:55 AM EDT 12/26/2024 8:55 AM EDT Francis FELICIANO LAB BLOOD ORDERABLES Maye l Result Performing Organization Address [facility]/ZIP Co de Phone Number [facility] [address] [place] [address], * Microalbumin creatinine urine ratio (12/26/2024 8:55 AM EDT) Pathologist [facility] [place] Creatinine, Urine 214.0 mg/dL LAB CHEMISTRY METHOD 12/26/2024 11:52 AM EDT [facility] Microalb, Ur 9.0 0.0 - 29.0 mg/L LAB CHEMISTRY METHOD 12/26/2024 11:52 AM EDT [facility] Microalb/Creat Ratio 4 <30 mg/g creat LAB CHEMISTRY METHOD 12/26/2024 11:52 AM EDT [facility] Urine Urine specimen obtained by clean catch procedure / Unknown Non-blood Collection / Unknown 12/26/2024 8:55 AM EDT 12/26/2024 8:55 AM EDT Francis FELICIANO LAB URINE ORDERABLES Maye l Result Performing Organization Address [facility]/ZIP Co de Phone Number [facility] [address] [place] [address], [place] [phone] * Hemoglobin A1c (12/26/2024 8:55 AM EDT) [facility] Hemoglobin A1C 6.4 <6.5 % LAB CHEMISTRY METHOD 12/26/2024 1:38 PM EDT [facility] Mean Bld Glu Estim. 137 mg/dL LAB CHEMISTRY METHOD 12/26/2024 1:38 PM EDT [facility] Blood Venous blood specimen / Unknown Venipuncture / Unknown 12/26/2024 8:55 AM EDT 12/26/2024 8:55 AM EDT Francis FELICIANO LAB BLOOD ORDERABLES Maye l Result [facility] [address] [place] [address], [place] [phone] * Colonoscopy (04/04/2024) [facility] Colonoscopy no interpreta tion,abstr acted Anatomical Region Laterality Modality Other [facility] Provider HEALTH MAINTENANCE Edited Result - Final * Diabetes Foot Exam (09/09/2023) [facility] Diabetes: Annual Foot Exam Completed [facility] Provider HEALTH MAINTENANCE Final Result * Diabetes Eye Exam (08/30/2023) [facility] Diabetes: Annual Retina Eye Exam Completed [facility] Provider HEALTH MAINTENANCE Final Result * Hepatitis C Screening (02/21/2009) [facility] Hepatitis C Screening abstracted [facility] Provider HEALTH MAINTENANCE Final Result from Last 3 Months or Most Recently Relevant to Health Maintenance Insurance [facility] Care Teams Manager [employer] Sales Relationship Specialty Start Date End Date Francis Greene PA [address] [place] [address] PCP - General Internal Medicine 07/20/24
== END ==
LOC: HO.CARD 14:34
DX: R06.02 Shortness of breath (principal); R00.2 Palpitations; R42 Dizziness and giddiness; I25.10 Atherosclerotic heart disease of native coronary artery without angina pectoris
CPT/HCPCS: 93242

== ENCOUNTER 2025-04-17 11:13 | Outpatient (REF) | payer BC, SELFPAY ==
--- OUTSIDE RECORDS SUMMARY | 2025-04-17 12:17 | XMS_ITS | Clinical Summary ---
Author Organization 175 [facility] Address [address] [place] [address] Phone Care Team Providers Care Diesel Engine Erector Name Role Phone Francis Greene Primary Care Provider [phone] Allergies Active Allergy Reactions Criticality Noted Date [...] ezetimibe (ZETIA) 10 mg tablet 1 Active acetic acid-hydrocorti sone (VOSOL-HC) otic solution Administer 5 drops into the right ear 2 (two) times a day if needed (ear itching). Place 5 Drops into both ears 2 times daily as needed for Other (ear itching). 10 mL 3 5 Active metoprolol succinate (TOPROL-XL) 25 mg 24 hr tablet TAKE 1 TABLET BY MOUTH EVERY DAY 90 tablet 1 5 Active Gemtesa 75 mg tablet tablet Take 1 tablet (75 mg total) by mouth 1 (one) time each day. 5 Active amitriptyline (ELAVIL) 10 mg tablet Take 1 tablet (10 mg total) by mouth at bedtime. 30 each 5 02/28/20 26 Active cholecalciferol (VITAMIN D-3) 50 mcg (2,000 unit) tablet Take 1 tablet (2,000 Units total) by mouth 1 (one) time each day. 30 tablet 5 03/01/20 26 Active sertraline (ZOLOFT) 25 mg tablet Take 1 tablet (25 mg total) by mouth 1 (one) time each day. 30 each 5 Active LORazepam (ATIVAN) 0.5 mg tablet Take 1 tablet (0.5 mg total) by mouth 2 (two) times a day if needed for anxiety. Max Daily Amount: 1 mg 60 tablet 5 Active Active Problems Problem Noted Date Diagnosed Date Elevated blood pressure reading 06/27/2024 Coronary artery disease due to lipid rich plaque 09/09/2023 Type 2 diabetes mellitus wit hout complication, without long-term current use of insulin ([facility] V24, [facility] V28) 06/03/2023 Chronic neck pain 08/31/2011 Hypertrophy of prostate without urinary obstruct ion 05/13/2006 Hyperlipidemia 04/18/2006 Encounters Date Type Department Care Team Description 04/05/2025 7:30 AM EDT Ancillary Procedure [facility] [address] [phone] Hospital discharge follow-up; Coronary artery disease due to lipid rich plaque; Hyperlipidemia, unspecified hyperlipidemia type; Type 2 diabetes mellitus without complication, without long-term current use of insulin ([facility] V24, [facility] V28); SOB (shortness of breath); Other chest pain; Abnormal brain MRI 04/04/2025 Telephone Adult Medicine [address] [phone] Francis Greene PA Referral (Cardiology Referral) 03/28/2025 Telephone Adult Medicine [address] [phone] Francis Greene PA 03/21/2025 11:00 AM EDT Ancillary Procedure [facility] [address] [phone] Hospital discharge follow-up; Coronary artery disease due to lipid rich plaque; Hyperlipidemia, unspecified hyperlipidemia type; Type 2 diabetes mellitus without complication, without long-term current use of insulin ([facility]/HCC V24, CMS/HCC V28); SOB (shortness of breath); Other chest pain; Abnormal brain MRI 03/21/2025 7:03 AM EDT - 03/21/2025 11:59 PM EDT Hospital Encounter [facility] [address] [place] [address] Discharge Disposition: Home or Self Care 03/12/2025 12:45 PM EDT Office Visit Adult [address] [phone] Francis Greene PA Hospital discharge follow-up (Primary Dx); Coronary artery disease due to lipid rich plaque; Hyperlipidemia, unspecified hyperlipidemia type; Type 2 diabetes mellitus without complication, without long-term current use of insulin (CMS/HCC V24, CMS/HCC V28); SOB (shortness of breath); Other chest pain; Abnormal brain MRI 03/11/2025 12:00 PM EDT Procedure visit [address] [phone] Louie Narayan MD Cervico-occipital neuralgia (Primary Dx); Trigger point 03/07/[address] [phone] Francis Greene PA Hospital Follow-up (ER) 03/04/[address] [phone] Mine [place] 02/27/2025 10:40 AM EDT Consult [address] [phone] Louie Narayan MD Occipital neuralgia of right side (Primary Dx); Abnormal finding on MRI of brain; Worsening headaches 02/23/2025 Telephone Adult Medicine [facility] - [address] [phone] Francis Greene, PA 02/21/2025 2:16 PM EDT - 02/21/2025 11:59 PM EDT Hospital Encounter Radiology Department - [address] [phone] Worsening headaches Discharge Disposition: Home or Self Care 02/15/2025 Telephone Adult Medicine [address] [phone] Francis Greene, PA from Last 3 Months [...] surgeries COLONOSCOPY 04/04/2024 PROCEDURE: HISTORICAL COLONOSCOPY; COMMENT: agustin 1 polyp 5 yrs CERVICAL DISCECTOMY Medical [...] Breast cancer Aunt 70 Heart attack Father [place] x 2 Other: some of type of [...] your loved ones. For example, child care attendant school or elderly care for an older adult? [...] 9:00 AM EDT Office Visit Adult Medicine [address] [phone] Francis Greene, PA [address] [place], [place] 05/16/2025 10:45 AM EDT Appointment Radiology Department - [address] [phone] 06/06/2025 9:00 AM EDT Office Visit [facility] [address] [phone] Louie Narayan MD [address] [phone] 06/25/2025 8:30 AM EDT Office Visit Adult Medicine [address] [phone] Francis Greene, PA [address] [place] [phone] Health Maintenance Due Date Last Done Comments [...] this topic Medical Devices Implanted Type Area Owner Oral Surgeon Device Identifier Shelf Expiration Date Model / Serial / Lot Mesh 3dmax Lght Lg 4.1x6.2 L 4.1x6.2in - Sn/A - [id number] Implanted:Qty: 1 on 08/02/2024 by Tevin Leary DO at [facility] Surgical Mesh Sling Implants Left: Inguinal CR BARD - [employer] 11/16/2028 [id number] / N/A / [id number] [employer] Fix8 Implanted:Qty: 1 on 08/02/2024 by Tevin Leary, DO at [facility] Left: Inguinal [employer] 11/16/2025 [id number] / N/A / [id number] Procedures Procedure Name Priority Date/Time Associated Diagnosis Comments STRESS TEST ONLY EXERCISE Routine 04/05/2025 8:24 AM EDT Hospital discharge follow-up Coronary artery disease due to lipid rich plaque Hyperlipidemia, unspecified hyperlipidemia type Type 2 diabetes mellitus without complication, without long-term current use of insulin ([facility], [facility] V28) SOB (shortness of breath) Other chest pain Abnormal brain MRI TRANSTHORACIC ECHOCARDIOGRAM (TTE) COMPLETE Routine 03/21/2025 11:36 AM EDT Hospital discharge follow-up Coronary artery disease due to lipid rich plaque Hyperlipidemia, unspecified hyperlipidemia type Type 2 diabetes mellitus without complication, without long-term current use of insulin ([facility], [facility] V28) SOB (shortness of breath) Other chest pain Abnormal brain MRI HC SPIROMETRY BRONCHODILATION RESPONSIVENESS PRE/POST BRONCHODILATOR ADMINISTRATION Routine 03/21/2025 8:05 AM EDT Hospital discharge follow-up Coronary artery disease due to lipid rich plaque Hyperlipidemia, unspecified hyperlipidemia type Type 2 diabetes mellitus without complication, without long-term current use of insulin ([facility], [facility] V28) SOB (shortness of breath) Other chest [...] complication, without long-term current use of insulin ([facility] V24, [facility] V28) Hyperlipidemia, unspecified hyperlipidemia type Coronary artery disease due to lipid rich plaque HEMOGLOBIN A1C Routine 12/26/2024 8:55 AM EDT Cervical radicular pain Type 2 diabetes mellitus without complication, without long-term current use of insulin ([facility] V24, [facility] V28) Hyperlipidemia, unspecified hyperlipidemia type Coronary artery disease due to lipid rich plaque LIPID PANEL WITH REFLEX TO DIRECT LDL Routine 12/26/2024 8:55 AM EDT Cervical radicular pain Type 2 diabetes mellitus without complication, without long-term current use of insulin ([facility] V24, [facility] V28) Hyperlipidemia, unspecified hyperlipidemia type Coronary artery disease due to lipid rich plaque COLONOSCOPY Routine 04/04/2024 DIABETES FOOT EXAM Routine 09/09/2023 DIABETES EYE EXAM Routine 08/30/2023 HEPATITIS C SCREENING Routine 02/21/2009 from Last 3 Months or Most Recently Relevant to Health Maintenance Results * Exercise stress test (04/05/2025 8:24 AM EDT) Exercise/injec tion duration (min) 7 CV STRESS [...] well into recovery. CC report to his collar setter Dr. Hopkins in [place]. Stress Findings A Viraj protocol stress test [...] the stress ECG was negative for ischemia. us Francis FELICIANO CV STRESS PROCEDURES Maye beavers Result * (ABNORMAL) TRANSTHORACIC ECHOCARDIOGRAM (TTE) COMPLETE (03/21/2025 11:36 AM EDT) Left Atrium Minor Mchenry 4.3 cm CV PACS Left Atrium Major Mchenry 4.6 cm CV PACS LA Area Sys [...] Volume 59 mL CV PACS MV Deceleration Childress 3.1 m/s2 CV PACS E Wave Deceleration [...] LAB CHEMISTRY METHOD 03/03/2025 10:[address] [facility] Sjogren's SS-A (Ro) Ab Negative Negative LAB CHEMISTRY METHOD 03/03/2025 10:[address] [facility] Sjogren's SS-B (La) Ab Quant 36(H) <20 units LAB CHEMISTRY METHOD 03/03/2025 10:[address] [facility] Sjogren's SS-B (La) Ab Positive(A) Negative LAB CHEMISTRY METHOD 03/03/2025 10:[address] [facility] Blood Venous blood specimen / Unknown Venipuncture / Unknown 02/27/2025 11:53 AM EDT 02/27/2025 11:53 AM EDT Louie Narayan MD LAB BLOOD ORDERABLES Fin al Result [facility] [address] [place] [address], [place] [phone] * FERNANDO IFA with titer and pattern (02/27/2025 11:53 AM EDT) [facility] FERNANDO Negative Negative 02/28/2025 2:[address] [facility] Blood Venous blood specimen / Unknown Venipuncture / Unknown 02/27/2025 11:53 AM EDT 02/27/2025 11:53 AM EDT Louie Narayan MD LAB BLOOD ORDERABLES Fin al Result [facility] [address] [place] [address], * (ABNORMAL) CBC auto differential (02/27/2025 11:53 AM EDT) [facility] WBC 11.3(H) 4.8 - 10.8 K/mcL LAB HEMETOLOGY METHOD 02/27/2025 2:[address] [facility] RBC 5.20 4.50 - 5.50 M/mcL LAB HEMETOLOGY METHOD 02/27/2025 2:[address] [facility] Hemoglobin 15.8 13.5 - 17.5 g/dL LAB HEMETOLOGY METHOD 02/27/2025 2:[address] [facility] Hematocrit 47.9 42.0 - 54.0 % LAB HEMETOLOGY METHOD 02/27/2025 2:[address] [facility] MCV 91.4 79.0 - 98.0 FL LAB HEMETOLOGY METHOD 02/27/2025 2:[address] [facility] MCH 30.2 27.0 - 32.0 pcg LAB HEMETOLOGY METHOD 02/27/2025 2:[address] [facility] MCHC 33.0 32.0 - 37.0 g/dL LAB HEMETOLOGY METHOD 02/27/2025 2:[address] [facility] RDW 13.0 11.0 - 15.0 % LAB HEMETOLOGY METHOD [facility] Plate[facility] 354 130 - 400 K/mcL LAB HEMETOLOGY METHOD 02/27/2025 2:26 PM [facility] MPV 10.2 7.0 - 11.0 FL LAB HEMETOLOGY METHOD 02/27[facility]2025 [facility] NRBC 0.0 <1.0 % LAB HEMETOLOGY METHOD 02/27/2025 2:26 PM [facility] NRBC Absolute 0.00 <0.10 K/mcL LAB HEMETOLOGY METHOD 02/27/2025 2:26 PM [facility] Neutrophils Relative 62.5 % LAB HEMETOLOGY METHOD 02/27/2025 2:26 PM [facility] Lymphocytes Relative 25.8 % LAB HEMETOLOGY METHOD 02/27/2025 2:26 PM [facility] Monocytes Relative 7.9 % LAB HEMETOLOGY METHOD 02/27/2025 2:26 PM [facility] Eosinophils Relative 1.9 % LAB HEMETOLOGY METHOD 02/27/2025 2:26 PM [facility] Basophils Relative 1.3 % LAB HEMETOLOGY METHOD 02/27/2025 2:26 PM [facility] Immature Granulocytes Relative 0.6 % LAB HEMETOLOGY METHOD 02/27/2025 2:26 PM [facility] Neutrophils Absolute 7.03(H) 1.50 - 7.00 K/mcL LAB HEMETOLOGY METHOD [facility] Lymphocytes Absolute 2.90 1.00 - 5.00 K/mcL LAB HEMETOLOGY METHOD 02/27/2025 2:[address] [facility] Monocytes Absolute 0.89 0.20 - 1.00 K/[facility] LAB HEMETOLOGY METHOD 02/27/2025 2:[address] [facility] Eosinophils Absolute 0.21 0.00 - 0.50 K/[facility] LAB HEMETOLOGY METHOD 02/27/2025 2:[address] [facility] Basophils Absolute 0.15 0.00 - 0.20 K/[facility] LAB HEMETOLOGY METHOD 02/27/2025 2:[address] [facility] Immature Granulocytes Absolute 0.07(H) 0.00 - 0.03 K/[facility] LAB HEMETOLOGY METHOD 02/27/2025 2:[address] [facility] Blood Venous blood specimen / Unknown Venipuncture / Unknown 02/27/2025 11:53 AM EDT 02/27/2025 11:53 AM EDT us Louie Narayan MD LAB BLOOD ORDERABLES Fin al Result [facility] [address] [place] [address], * Borrelia burgdorferi antibody (02/27/2025 11:53 AM EDT) [facility] Lyme Ab Negative Negative LAB CHEMISTRY METHOD 02/28/2025 8:[address] [facility] Comment: No laboratory evidence of [...] MD LAB BLOOD ORDERABLES Fin al Result [facility] [address] [place] [address], [place] [phone] * Creatinine (02/27/2025 11:53 AM EDT) Creatinine 1.15 0.70 - 1.30 mg/dL LAB CHEMISTRY METHOD 02/27/2025 4:[address] [facility] eGFR 72 >=60 mL/min/1. 73m2 LAB CHEMISTRY METHOD 02/27/2025 4:[address] [facility] Comment:Calculation based on the Chronic Kidney Disease Epidemiology Collaboration (CKD-EPI) equation refit without adjustment for race. Blood Venous blood specimen / Unknown Venipuncture / Unknown 02/27/2025 11:53 AM EDT 02/27/2025 11:53 AM EDT Louie Narayan MD LAB BLOOD ORDERABLES Fin al Result Performing Organization Address City/Va Hospital/ZIP Co de Phone Number [facility] [address] [place] [address], [place] [phone] * (ABNORMAL) Vitamin D 25 hydroxy (02/27/2025 11:53 AM EDT) Vit D, 25-Hydroxy 28.0(L) 30.0 - 80.0 ng/mL LAB CHEMISTRY METHOD 02/27/2025 4:[address] [facility] Blood Venous blood specimen / Unknown Venipuncture / Unknown 02/27/2025 11:53 AM EDT 02/27/2025 11:53 AM EDT Louie Narayan MD LAB BLOOD ORDERABLES Fin al Result [facility] [address] [place] [address], [place] [phone] * Sedimentation rate (02/27/2025 11:53 AM EDT) Sed Rate 5 0 - 20 mm/hr LAB HEMETOLOGY METHOD 02/27/2025 2:[address] [facility] Blood Venous blood specimen / Unknown Venipuncture / Unknown 02/27/2025 11:53 AM EDT 02/27/2025 11:53 AM EDT us Louie Narayan MD LAB BLOOD ORDERABLES Fin al Result [facility] [address] [place] [address], [place] [phone] * BUN (02/27/2025 11:53 AM EDT) Pathologist [facility] BUN 11 5 - 25 mg/dL LAB CHEMISTRY METHOD 02/27/2025 4:[address] [facility] Blood Venous blood specimen / Unknown Venipuncture / Unknown 02/27/2025 11:53 AM EDT 02/27/2025 11:53 AM EDT us Louie Narayan MD LAB BLOOD ORDERABLES Fin al Result [facility] [address] [place] [address], [place] [phone] * Vitamin B12 (02/27/2025 11:53 AM EDT) Vitamin B-12 470 250 - 900 pcg/mL LAB CHEMISTRY METHOD 02/27/2025 4:[address] [facility] Blood Venous blood specimen / Unknown Venipuncture / Unknown 02/27/2025 11:53 AM EDT 02/27/2025 11:53 AM EDT Louie Narayan MD LAB BLOOD ORDERABLES Fin al Result [facility] [place] ([facility]) [facility] [address] [place] [address], [place] [phone] * MR Brain wo and w Contrast [...] Signed Date: 02/21/2025 23:46 ET Workstation ID: [id number] Transcribed By: Self Edit Transcribed Date: 02/21/2025 [...] Signed Date: 02/21/2025 23:46 ET Workstation ID: [id number] Transcribed By: Self Edit Transcribed Date: 02/21/2025 23:35 ET Francis FELICIANO IM MRI PROCEDURES Final Result * (ABNORMAL) Lipid panel with reflex to direct LDL (12/26/2024 8:55 AM EDT) Cholesterol 104 0 - 200 mg/dL LAB CHEMISTRY METHOD [facility] Triglycerides 115 0 - 150 mg/dL LAB CHEMISTRY METHOD 12/26/2024 2:01 PM [facility] HDL 35(L) >=40 mg/dL LAB CHEMISTRY METHOD 12/26/2024 2:01 PM [facility] LDL Calculated 46 0 - 100 mg/dL LAB CHEMISTRY METHOD 12/26/2024 2:01 PM [facility] VLDL Cholesterol Mani 23 mg/dL LAB CHEMISTRY METHOD 12/26/2024 2:01 PM [facility] Non HDL Chol. (LDL+VLDL) 69 <145 mg/dL LAB CHEMISTRY METHOD 12/26/2024 2:01 PM [facility] Chol/HDL Ratio 3.0 0.0 - 4.4 LAB CHEMISTRY METHOD 12/26/2024 2:01 PM [facility] Blood Venous blood specimen / Unknown Venipuncture / Unknown 12/26/2024 8:55 AM EDT 12/26/2024 8:55 AM EDT Francis FELICIANO LAB BLOOD ORDERABLES Maye l Result [facility] [address] [place] [address], [place] [phone] * Microalbumin creatinine urine ratio (12/26/2024 8:55 AM EDT) Creatinine, Urine 214.0 mg/dL LAB CHEMISTRY METHOD 12/26/2024 11:[address] [facility] Microalb, Ur 9.0 0.0 - 29.0 mg/L LAB CHEMISTRY METHOD 12/26/2024 11:[address] [facility] Microalb/Creat Ratio 4 <30 mg/g creat LAB CHEMISTRY METHOD 12/26/2024 11:[address] [facility] Urine Urine specimen obtained by clean catch procedure / Unknown Non-blood Collection / Unknown 12/26/2024 8:55 AM EDT 12/26/2024 8:55 AM EDT Francis FELICIANO LAB URINE ORDERABLES Maye l Result Performing Organization Address City/Va Hospital/ZIP Co de Phone Number [facility] [address] [place] [address], [place] [phone] * Hemoglobin A1c (12/26/2024 8:55 AM EDT) Hemoglobin A1C 6.4 <6.5 % LAB CHEMISTRY METHOD 12/26/2024 1:[address] [facility] Mean Bld Glu Estim. 137 mg/dL LAB CHEMISTRY METHOD 12/26/2024 1:[address] [facility] Blood Venous blood specimen / Unknown Venipuncture / Unknown 12/26/2024 8:55 AM EDT 12/26/2024 8:55 AM EDT Francis FELICIANO LAB BLOOD ORDERABLES Maye l Result [facility] [address] [place] [address], [place] [phone] * Colonoscopy (04/04/2024) [facility] Colonoscopy no interpreta tion,abstr acted Anatomical Region Laterality Modality Other Historical Provider HEALTH MAINTENANCE Edited Result - Final * Diabetes Foot Exam (09/09/2023) [facility] Diabetes: Annual Foot Exam Completed [facility] Provider MD HEALTH MAINTENANCE Final Result * Diabetes Eye Exam (08/30/2023) [facility] Diabetes: Annual Retina Eye Exam Completed [facility] Provider HEALTH MAINTENANCE Final Result * Hepatitis C Screening (02/21/2009) [facility] Hepatitis C Screening abstracted Historical Provider HEALTH MAINTENANCE Final Result from Last 3 Months or Most Recently Relevant to Health Maintenance Insurance [facility] Care Teams Diesel Engine Erector Relationship Specialty Start Date End Date Francis Greene PA [address] [place] [id number] PCP - General Internal Medicine 07/20/24
--- OUTSIDE RECORDS SUMMARY | 2025-04-17 12:17 | XMS_ITS ---
Author Name [facility] Organization Unknown Care Team Organization Name Specialty Phone Email Start Date End Da denis [facility] Francis Greene Primary Care 07/27/2022
[2025-04-17 13:15] LABS: Anion Gap 15 (12-20); Blood Urea Nitrogen 13 mg/dL (9-16); Calcium 9.5 mg/dL (8.4-10.2); Carbon Dioxide 23 mmol/L (22-29); Chloride 108 mmol/L (96-108); Estimated Glomerular Filt Rate > 60; Potassium 4.4 mmol/L (3.3-5.1); Sodium 142 mmol/L (135-145)
== END 2025-04-17 11:14 | disposition home or self-care (01) ==
LOC: HO.LAB 11:13
PROVIDERS: PCP Physician Assistant Medical
DX: I25.10 Atherosclerotic heart disease of native coronary artery without angina pectoris (principal)
CPT/HCPCS: 36415; 80048

== ENCOUNTER 2025-05-15 08:36 | Outpatient (REF) | payer BC, SELFPAY ==
--- OUTSIDE RECORDS SUMMARY | 2025-05-13 10:25 | XMS_ITS | Encounter Summary ---
Author Organization [facility] Address [address] [place] [address] Care Team Providers Care Junior Analyst Name Role Phone Francis Greene Primary Care Provider [phone] Reason for Referral * Imaging (Routine) - Authorized Specialty Diagnoses / Procedures Referred By Mini t Referred To Contact Radiology Diagnoses Hospital discharge follow-up Coronary artery disease due to lipid rich plaque Hyperlipidemia, unspecified hyperlipidemia type Type 2 diabetes mellitus without complication, without long-term current use of insulin (CMS/HCC V24, CMS/HCC V28) SOB (shortness of breath) Other chest pain Abnormal brain MRI Procedures MR Brain wo and w Contrast Francis Greene PA [address] [place] [id number] Phone: tel: fax: [address] [address] Phone: tel: Referral ID Status Reason Start Date Expiration Date V isits Requested Visits Authorized [id number] Authorized 03/12/2025 05/17/2025 1 1 Reason for Visit * Imaging (Routine) - Authorized Specialty Diagnoses / Procedures Referred By Contac t Referred To Contact Radiology Diagnoses Hospital discharge follow-up Coronary artery disease due to lipid rich plaque Hyperlipidemia, unspecified hyperlipidemia type Type 2 diabetes mellitus without complication, without long-term current use of insulin (CMS/HCC V24, CMS/HCC V28) SOB (shortness of breath) Other chest pain Abnormal brain MRI Procedures MR Brain wo and w Contrast Francis Greene PA [address] [place], [place] Phone: tel: fax: [facility] [address] Phone: tel: Referral ID Status Reason Start Date Expiration Date V isits Requested Visits Authorized [id number] Authorized 03/12/2025 05/17/2025 1 1 Encounter Details Date Type Department Care Team (Latest Contact Info) Description 05/13/2025 10:25 AM EDT - 05/13/2025 11:59 PM EDT Hospital Encounter Radiology Department - [address] [phone] Hospital discharge follow-up; Coronary artery disease due to lipid rich plaque; Hyperlipidemia, unspecified hyperlipidemia type; Type 2 diabetes mellitus without complication, without long-term current use of insulin (CMS/[facility] V24, CMS/[facility] V28); SOB (shortness of breath); Other chest pain; Abnormal brain MRI Discharge Disposition: Home or Self Care Social History Tobacco Use Types Packs/Day Years [...] for your loved ones. For example, child and family counselor or elderly care for an older [...] Orientation Straight 08/02/2024 5: 55 AM EST documented as of this encounter Medications at Time of Discharge acetic acid-hydrocortis one (VOSOL-HC) otic solution Administer 5 drops into the right ear 2 (two) times a day if needed (ear itching). Place 5 Drops into both ears 2 times daily as needed for Other (ear itching). 10 mL 3 09/24/2024 amitriptyline (ELAVIL) 10 mg tablet Take 1 tablet (10 mg total) by mouth at bedtime. 30 each 02/27/2025 aspirin 81 mg EC tablet Take 1 tablet (81 mg total) by mouth 1 (one) time each day. atorvastatin (LIPITOR) 80 mg tablet Take 1 tablet (80 mg total) by mouth 1 (one) time each day. 07/16/2019 bempedoic acid (Nexletol) 180 mg tablet 07/19/2022 cholecalciferol (VITAMIN D-3) 50 mcg (2,000 unit) tablet Take 1 tablet (2,000 Units total) by mouth 1 (one) time each day. 30 tablet 03/01/2025 ezetimibe (ZETIA) 10 mg tablet 08/04/2021 Gemtesa 75 mg tablet tablet Take 1 tablet (75 mg total) by mouth 1 (one) time each day. 10/22/2024 LORazepam (ATIVAN) 0.5 mg tablet Take 1 tablet (0.5 mg total) by mouth 2 (two) times a day if needed for anxiety. Max Daily Amount: 1 mg 60 tablet 03/12/2025 metoprolol succinate (TOPROL-XL) 25 mg 24 hr tablet TAKE 1 TABLET BY MOUTH EVERY DAY 90 tablet 1 12/14/2024 sertraline (ZOLOFT) 25 mg tablet Take 1 tablet (25 mg total) by mouth 1 (one) time each day. 30 each 03/12/2025 documented as of this encounter Discharge Disposition Disposition Code Departure Means Destination Home or Self Care documented in this encounter Plan of Treatment Upcoming Encounters Date Type Department Care Team (Late st Contact Info) Description 06/06/2025 9:00 AM EDT Office Visit [address] [place] [id number] Louie Narayan MD [address] [place] [address] 06/25/2025 8:30 AM EDT Office Visit Adult Medicine [facility] [address] [place] [address] Francis Greene PA [address] [place] [address] documented as of this encounter Procedures Procedure Name Priority Date/Time Associated Diagnosis Comments MR BRAIN WO AND W CONTRAST Routine 05/13/2025 11:58 AM EDT Hospital discharge follow-up Coronary artery disease due to lipid rich plaque Hyperlipidemia, unspecified hyperlipidemia type Type 2 diabetes mellitus without complication, without long-term current use of insulin ([facility] V24, CMS/[facility] V28) SOB (shortness of breath) Other chest pain Abnormal brain MRI documented in this encounter Results * MR Brain wo and w Contrast (05/13/2025 11:58 AM EDT) Anatomical Region Laterality Modality Head and Neck Magnetic Resonan ce 05/14/2025 2:13 PM EDT Impressions 05/14/2025 2:32 PM EDT Impression: 1. No acute intracranial process 2. No abnormal enhancement within the quadrigeminal plate on the subtraction images. -------- FINAL REPORT -------- Dictated By: Sea Bright Dictated Date: 05/14/2025 14:13 ET Assigned Physician: Sea Bright Reviewed and Electronically Signed By: Sea Bright Signed Date: 05/14/2025 14:32 ET Workstation ID: [id number] Transcribed By: Self Edit Transcribed Date: 05/14/2025 14:13 ET Narrative 05/14/2025 2:32 PM EDT MRI BRAIN WITH AND WITHOUT CONTRAST Clinical Statement: Dizziness, non-specific lightheaded, brain abnormalities needs f/u around early sept Comparison: Follow-up for subtle enhancement in the quadrigeminal plate Technique: Multiplanar, multisequence MR images of the brain were obtained prior to and following the uneventful intravenous administration of 15 mL of Dotarem Findings: There is no evidence of diffusion restriction. No intracranial hemorrhage. Minimal white matter hyperintensities within the periventricular and supraventricular region consistent with microvascular ischemic changes. There is a probable tiny 0.5 cm left anterior falx meningioma versus falx calcification without mass effect. The craniocervical junction is normal. The ventricular system is prominent commensurate with the degree of volume loss. The basilar cisterns are normal. There is no evidence of abnormal intracranial enhancement. There is no abnormal enhancement within the quadrigeminal plate on the subtraction images. The orbits and globes are within normal limits. Mucosal thickening within the paranasal sinuses. Procedure Note Sea Bright MD - 05/14/2025 MRI BRAIN WITH AND WITHOUT CONTRAST Clinical Statement: Dizziness, non-specific lightheaded, brain abnormalities needs f/u around early sept Comparison: Follow-up for subtle enhancement in the quadrigeminal plate Technique: Multiplanar, multisequence MR images of the brain wereobtained prior to and following the uneventful intravenous administrationof 15 mL of Dotarem Findings: There is no evidence of diffusion restriction. No intracranialhemorrhage. Minimal white matter hyperintensities within theperiventricular and supraventricular region consistent with microvascularischemic changes. There is a probable tiny 0.5 cm left anterior falxmeningioma versus falx calcification without mass effect. Thecraniocervical junction is normal. The ventricular system is prominentcommensurate with the degree of volume loss. The basilar cisterns arenormal. There is no evidence of abnormal intracranial enhancement. Thereis no abnormal enhancement within the quadrigeminal plate on thesubtraction images. The orbits and globes are within normal limits.Mucosal thickening within the paranasal sinuses. IMPRESSION: Impression: 1. No acute intracranial process 2. No abnormal enhancement within the quadrigeminal plate on thesubtraction images. -------- FINAL REPORT -------- Dictated By: Sea Bright Dictated Date: 05/14/2025 14:13 ET Assigned Physician: Sea Bright Reviewed and Electronically Signed By: Sea Bright Signed Date: 05/14/2025 14:32 ET Workstation ID: [id number] Transcribed By: Self Edit Transcribed Date: 05/14/2025 14:13 ET Francis GILLETTE MRI PROCEDURES Final Result documented in this encounter Visit Diagnoses Diagnosis Hospital discharge follow-up Other follow-up examination Coronary artery disease due to lipid rich plaque Hyperlipidemia, unspecified hyperlipidemia type Type 2 diabetes mellitus without complication, without long-term current use of insulin (CMS/HCC V24, CMS/HCC V28) SOB (shortness of breath) Shortness of breath Other chest pain Abnormal brain MRI Nonspecific (abnormal) findings on radiological and other examination of skull and head documented in this encounter Administered Medications Inactive Administered Medications - up to 3 most recent administrations Medication Order MAR Action Action Date Dose Rate Site gadoterate meglumine (CLARISCAN, DOTAREM) injection 15 mL 15 mL, intravenous, Once in imaging, Starting on 05/13/25 at 1127, For 1 dose Given 05/13/2025 11:27 AM EDT 15 mL documented in this encounter Orders Medications Ordered That Jerad ht Not Have Been Administered Count Last Ordered Date First Ordered Date gadoterate meglumine (KOREY CAN, DOTAREM) injection 15 mL 1 05/13/2025 documented in this encounter Additional Health Concerns Assessment Noted Time PHQ-9 Depression Total Score: 0 12/18/19 11:50 AM EDT documented as of this encounter Care Teams Junior Analyst Relationship Specialty Start Date End Date Francis Greene PA [address] [place] [address] PCP - General Internal Medicine 07/20/24 documented as of this encounter
--- OUTSIDE RECORDS SUMMARY | 2025-05-15 08:57 | XMS_ITS | Clinical Summary ---
Author Organization 175 [facility] Address [address] [place] [address] Phone Care Team Providers Care Sausage Canner Name Role Phone Francis Greene Primary Care Provider [phone] Allergies Active Allergy Reactions Criticality Noted Date [...] Amount: 1 mg 60 tablet 5 Active Hospital, Clinic, or Other Facility Administered Medication Ordered Dose Route Frequency Start Date End Date Status TC-99M tetrofosmin P radio-isotope injection 8 millicurie 8 millicurie IV Once in imaging 05/01/2025 05/01/2025 Ended TC-99M tetrofosmin P radio-isotope injection 31.4 millicurie 31.4 millicurie IV Once in imaging 05/01/2025 05/01/2025 Ende d regadenoson (LEXISCAN) injection 0.4 mg 0.4 mg IV Once in imaging 05/01/2025 05/01/2025 End ed Active Problems Problem Noted Date Diagnosed Date Elevated blood pressure reading 06/27/2024 Coronary artery disease due to lipid rich plaque 09/09/2023 Type 2 diabetes mellitus wit hout complication, without long-term current use of insulin ([facility] V24, [facility] V28) 06/03/2023 Chronic neck pain 08/31/2011 Hypertrophy of prostate without urinary obstruct ion 05/13/2006 Hyperlipidemia 04/18/2006 Encounters Date Type Department Care Team Description 05/13/2025 10:25 AM EDT - 05/13/2025 11:59 PM EDT Hospital Encounter Radiology Department [address] [phone] Hospital discharge follow-up; Coronary artery disease due to lipid rich plaque; Hyperlipidemia, unspecified hyperlipidemia type; Type 2 diabetes mellitus without complication, without long-term current use of insulin ([facility] V24, [facility] V28); SOB (shortness of breath); Other chest pain; Abnormal brain MRI Discharge Disposition: Home or Self Care 05/03/2025 Telephone [facility] Card[facility] [address] [place] [phone] Francis Greene PA 05/01/2025 12:00 PM EDT Ancillary Procedure [facility] - [address] [place] [phone] Type 2 diabetes mellitus without complication, without long-term current use of insulin ([facility] V24, [facility] V28); Coronary artery disease due to lipid rich plaque; Hyperlipidemia, unspecified hyperlipidemia type; Hypertrophy of prostate without urinary obstruction; Elevated blood pressure reading; SOB (shortness of breath); Other chest pain 04/22/2025 9:00 AM EDT Office Visit [address] [phone] Francis Greene PA Type 2 diabetes mellitus without complication, without long-term current use of insulin ([facility] V24, [facility] V28) (Primary Dx); Coronary artery disease due to lipid rich plaque; Hyperlipidemia, unspecified hyperlipidemia type; Hypertrophy of prostate without urinary obstruction; Elevated blood pressure reading; SOB (shortness of breath); Other chest pain 04/22/2025 Telephone [facility] - [address] [place] [phone] Elza Rojas MA 04/05/2025 7:30 AM EDT Ancillary Procedure [facility] - [address] [place] [phone] Hospital discharge follow-up; Coronary artery disease due to lipid rich plaque; Hyperlipidemia, unspecified hyperlipidemia type; Type 2 diabetes mellitus without complication, without long-term current use of insulin ([facility] V24, [facility] V28); SOB (shortness of breath); Other chest pain; Abnormal brain MRI 04/04/[address] [phone] Francis Greene PA 03/28/2025 Telephone Adult Medicine [address] [phone] Francis Greene PA 03/21/2025 11:00 AM EDT Ancillary Procedure [facility] - [address] [place] [phone] Hospital discharge follow-up; Coronary artery disease due to lipid rich plaque; Hyperlipidemia, unspecified hyperlipidemia type; Type 2 diabetes mellitus without complication, without long-term current use of insulin ([facility] V24, [facility] V28); SOB (shortness of breath); Other chest pain; Abnormal brain MRI 03/21/2025 7:03 AM EDT - 03/21/2025 11:59 PM EDT Hospital Encounter [facility] [address] [place] [phone] Discharge Disposition: Home or Self Care 03/12/2025 12:45 PM EDT Office Visit Adult Medicine [address] [phone] Francis Greene PA Hospital discharge follow-up (Primary Dx); Coronary artery disease due to lipid rich plaque; Hyperlipidemia, unspecified hyperlipidemia type; Type 2 diabetes mellitus without complication, without long-term current use of insulin ([facility]/HCC V24, CMS/HCC V28); SOB (shortness of breath); Other chest pain; Abnormal brain MRI 03/11/2025 12:00 PM EDT Procedure visit [facility] [address] [phone] Louie Narayan MD Cervico-occipital neuralgia (Primary Dx); Trigger point 03/07/2025 Telephone Adult Medicine [address] [phone] Francis Greene PA 03/04/[address] [phone] Mine Barajas [place] 02/27/2025 10:40 AM EDT Consult [facility] [place] [address] [place] [address] Louie Narayan MD Occipital neuralgia of right side (Primary Dx); Abnormal finding on MRI of brain; Worsening headaches 02/23/2025 Telephone Adult Medicine [address] [phone] Francis Greene PA 02/21/2025 2:16 PM EDT - 02/21/2025 11:59 PM EDT Hospital Encounter Radiology Department - [address] [phone] Worsening headaches Discharge Disposition: Home or Self Care 02/15/2025 Telephone Adult Medicine [address] [phone] Francis Greene, PA from Last 3 Months [...] Breast cancer Aunt 70 Heart attack Father [place] x 2 Other: some of type of [...] your loved ones. For example, child care teacher or elderly care for an older adult? [...] Sign Reading Time Taken Comments Blood Pressure 122/69 05/01/2025 12:31 PM EDT Pulse 78 04/22/2025 8:53 AM EDT Temperature 35.7 C (96.2 F) 04/22/2025 8:53 AM EDT Respiratory Rate 12 04/22/2025 8:53 AM EDT Oxygen Saturation 99% 04/22/2025 8:53 AM EDT Inhaled Oxygen Concentration - - Weight 78.5 kg (173 lb) 05/13/2025 10:28 AM EDT Height 172.7 cm (5' 8 ) 05/01/2025 12:31 PM EDT Body Mass Index 26.3 05/01/2025 12:31 PM EDT Plan of Treatment Upcoming Encounters Date Type Department Care Team (Late st Contact Info) Description 06/06/2025 9:00 AM EDT Office Visit [facility] [address] [facility] [address] [place] [address] Louie Narayan MD [address] [place] [phone] 06/25/2025 8:30 AM EDT Office Visit Adult Medicine [facility] [address] [place] [phone] Francis Greene PA [address] [place] [address] Health Maintenance Due Date Last Done Comments HIV Screening 08/28/2022 COVID-19 Vaccine ( season) 2024 07/21/2022, 08/29/2021, 10/19/2020, Additional history exists Influenza Vaccine (#1) 2025 , 05/31/2023, 07/21/2022, Additional history exists Diabetes: Annual Retina Eye Exam 06/07/2025 06/07/2024, 08/30/2023 Social Influencers of Health Screening 09/17/2025 09/17/2024 Diabetes: Blood Sugar Control Test (HGBA1C) 10/23/2025 04/22/2025, 12/26/2024, 06/11/2024, Additional history exists Diabetes: Annual Urine Albumin-Creatinine Ratio (uACR) 04/22/2026 04/22/2025, 12/26/2024, 06/11/2024 Diabetes: Annual GFR (Glomerular Filtration Rate) 04/22/2026 04/22/2025, 02/27/2025, 12/26/2024, Additional history exists Hypertension/CHF/CAD Annual BMP Blood Test 04/22/2026 04/22/2025, 02/27/2025, 12/26/2024, Additional history exists Colorectal Cancer Screening: Colonoscopy 04/04/2029 04/04/2024 Cholesterol Screening (Lipid Panel) 04/22/2030 04/22/2025, 12/26/2024, 06/11/2024, Additional history exists DTaP,Tdap,and Td Vaccines [...] this topic Medical Devices Implanted Type Area Examination Scorer Device Identifier Shelf Expiration Date Model / Serial / Lot Mesh 3dmax Lght Lg 4.1x6.2 L 4.1x6.2in - Sn/A - [id number] Implanted:Qty: 1 on 08/02/2024 by Tevin Leary DO at [facility] Surgical Mesh Sling Implants Left: Inguinal CR BARD [employer] 11/16/2028 [id number] / N/A / [id number] [employer] Fix8 Implanted:Qty: 1 on 08/02/2024 by Tevin Leary, DO at [facility] Left: Inguinal [employer] 11/16/2025 [id number] / N/A / [id number] Procedures Procedure Name Priority Date/Time Associated Diagnosis Comments MR BRAIN WO AND W CONTRAST Routine 05/13/2025 11:58 AM EDT Hospital discharge follow-up Coronary artery disease due to lipid rich plaque Hyperlipidemia, unspecified hyperlipidemia type Type 2 diabetes mellitus without complication, without long-term current use of insulin ([facility] V24, [facility] V28) SOB (shortness of breath) Other chest pain Abnormal brain MRI NM LEXISCAN STRESS TEST W/ MYOCARDIAL PERFUSION Routine 05/01/2025 2:12 PM EDT Type 2 diabetes mellitus without complication, without long-term current use of insulin ([facility] V24, [facility] V28) Coronary artery disease due to lipid rich plaque Hyperlipidemia, unspecified hyperlipidemia type Hypertrophy of prostate without urinary obstruction Elevated blood pressure reading SOB (shortness of breath) Other chest pain EXTERNAL STRESS TEST 05/01/2025 CBC WITH AUTO DIFFERENTIAL Routine 04/22/2025 9:50 AM EDT Type 2 diabetes mellitus without complication, without long-term current use of insulin ([facility] V24, [facility] V28) Coronary artery disease due to lipid rich plaque Hyperlipidemia, unspecified hyperlipidemia type Hypertrophy of prostate without urinary obstruction Elevated blood pressure reading SOB (shortness of breath) Other chest pain VITAMIN B1 Routine 04/22/2025 9:50 AM EDT Abnormal finding on MRI of brain LIPID PANEL WITH REFLEX TO DIRECT LDL Routine 04/22/2025 9:50 AM EDT Type 2 diabetes mellitus without complication, without long-term current use of insulin ([facility] V24, [facility] V28) Coronary artery disease due to lipid rich plaque Hyperlipidemia, unspecified hyperlipidemia type Hypertrophy of prostate without urinary obstruction Elevated blood pressure reading SOB (shortness of breath) Other chest pain MICROALBUMIN CREATININE URINE RATIO Routine 04/22/2025 9:50 AM EDT Type 2 diabetes mellitus without complication, without long-term current use of insulin ([facility] V24, [facility] V28) Coronary artery disease due to lipid rich plaque Hyperlipidemia, unspecified hyperlipidemia type Hypertrophy of prostate without urinary obstruction Elevated blood pressure reading SOB (shortness of breath) Other chest pain COMPREHENSIVE METABOLIC PANEL Routine 04/22/2025 9:50 AM EDT Type 2 diabetes mellitus without complication, without long-term current use of insulin ([facility] V24, [facility] V28) Coronary artery disease due to lipid rich plaque Hyperlipidemia, unspecified hyperlipidemia type Hypertrophy of prostate without urinary obstruction Elevated blood pressure reading SOB (shortness of breath) Other chest pain HEMOGLOBIN A1C Routine 04/22/2025 9:50 AM EDT Type 2 diabetes mellitus without complication, without long-term current use of insulin ([facility] V24, [facility] V28) Coronary artery disease due to lipid rich plaque Hyperlipidemia, unspecified hyperlipidemia type Hypertrophy of prostate without urinary obstruction Elevated blood pressure reading SOB (shortness of breath) Other chest pain CBC AND DIFFERENTIAL Routine 04/22/2025 9:50 AM EDT Type 2 diabetes mellitus without complication, without long-term current use of insulin ([facility] V24, [facility] V28) Coronary artery disease due to lipid rich plaque Hyperlipidemia, unspecified hyperlipidemia type Hypertrophy of prostate without urinary obstruction Elevated blood pressure reading SOB (shortness of breath) Other chest pain THYROID STIMULATING HORMONE WITH REFLEX TO FREE T4 AND FREE T3 Routine 04/22/2025 9:50 AM EDT Type 2 diabetes mellitus without complication, without long-term current use of insulin ([facility] V24, [facility] V28) Coronary artery disease due to lipid rich plaque Hyperlipidemia, unspecified hyperlipidemia type Hypertrophy of prostate without urinary obstruction Elevated blood pressure reading SOB (shortness of breath) Other chest pain EXTERNAL CLINICAL LAB 04/17/2025 STRESS TEST ONLY EXERCISE Routine 04/05/2025 8:24 AM EDT Hospital discharge follow-up Coronary artery disease due to lipid rich plaque Hyperlipidemia, unspecified hyperlipidemia type Type 2 diabetes mellitus without complication, without long-term current use of insulin ([facility] V24, [facility] V28) SOB (shortness of breath) Other chest pain Abnormal brain MRI TRANSTHORACIC ECHOCARDIOGRAM (TTE) COMPLETE Routine 03/21/2025 11:36 AM EDT Hospital discharge follow-up Coronary artery disease due to lipid rich plaque Hyperlipidemia, unspecified hyperlipidemia type Type 2 diabetes mellitus without complication, without long-term current use of insulin ([facility] V24, [facility] V28) SOB (shortness of breath) Other chest pain Abnormal brain MRI HC SPIROMETRY BRONCHODILATION RESPONSIVENESS PRE/POST BRONCHODILATOR ADMINISTRATION Routine 03/21/2025 8:05 AM EDT Hospital discharge follow-up Coronary artery disease due to lipid rich plaque Hyperlipidemia, unspecified hyperlipidemia type Type 2 diabetes mellitus without complication, without long-term current use of insulin ([facility] V24, [facility] V28) SOB (shortness of breath) [...] Routine 02/21/2025 3:12 PM EDT Worsening headaches COLONOSCOPY Routine 04/04/2024 DIABETES FOOT EXAM Routine 09/09/2023 DIABETES EYE EXAM Routine 08/30/2023 HEPATITIS C SCREENING Routine 02/21/2009 from Last 3 Months or Most Recently Relevant to Health Maintenance Results * MR Brain wo and w Contrast (05/13/2025 11:58 AM EDT) Only the most recent of2 resultswithin the time period is included. Anatomical Region Laterality Modality Head and Neck [...] Signed Date: 05/14/2025 14:32 ET Workstation ID: [id number] Transcribed By: Self Edit Transcribed Date: 05/14/2025 [...] Bright Reviewed and Electronically Signed By: Sea Brigth Signed Date: 05/14/2025 14:32 ET Workstation ID: [id number] Transcribed By: Self Edit Transcribed Date: 05/14/2025 14:13 ET Francis FELICIANO IMEmilie MRI PROCEDURES Final Result * NM LEXISCAN STRESS TEST W/ MYOCARDIAL PERFUSION (05/01/2025 2:12 PM EDT) Exercise/inject ion duration (min) 0 CV PACS STRESS Exercise/inject ion duration (sec) 49 CV PACS STRESS Peak SBP 122 mmHg CV PACS STRESS Peak DBP 69 mmHg CV PACS STRESS Peak HR 126 bpm CV PACS STRESS Baseline HR 88 bpm CV PACS STRESS Baseline SBP 120 mmHg CV PACS STRESS Baseline DBP 80 mmHg CV PACS STRESS Estimated workload 1.0 METS CV PACS STRESS Percent HR 80 % CV PACS STRESS Rate Pressure Product 15,372.0 mmHg*bpm CV PACS STRESS Target HR 134 bpm CV PACS STRESS O2 sat rest 99 % CV PACS STRESS O2 sat peak 99 % CV PACS STRESS ST Depression (mm) 0 mm CV PACS STRESS TID 1.24 CV PACS STRESS Nuc Stress EF 65 % CV PAC S STRESS Nuc Rest EF 69 % CV PACS STRESS BSA 1.94 m2 CV PACS STRESS Anatomical Region Laterality Modality Nuclear Medicine 05/01/2025 1:13 PM EDT 05/01/2025 1:31 PM EDT Impressions 05/02/2025 8:14 AM EDT Abnormal Regadenoson stress test with nuclear imaging. No chest pain or EKG changes consistent with ischemia. Nuclear imaging revealed a medium size, moderate, reversible perfusion defect of the [id number] anterior wall, anterior apical, apical conde consistent with ischemia There is a normal TID ratio. Gated SPECT imaging was performed and revealed an LVEF of 69 %. Narrative 05/02/2025 8:14 AM EDT Stress Findings A pharmacological stress test was performed using regadenoson, 0.4 mg IV over 10-15 seconds, followed by radiopharmacological injection 10 seconds post infusion. Total stress time was 0 min and 49 sec. The patient reached the end of the protocol. Blood pressure demonstrated a normal response. Heart rate demonstrated a normal response. The patient reported no symptoms during the stress test. ECG 64-year-old male gentleman with history of hyperlipidemia, diabetes, coronary artery disease and exertional dyspnea symptoms. Patient presents today for evaluation of shortness of breath. Previous exercise stress test the patient was able to exercise for 7 minutes however he developed profound shortness of breath. On arrival to the testing department today patient reported significant shortness of breath with walking from the car. This improved after resting. We opted for a pharmacological study because he had come in with shortness of breath with minimal exertion. The ECG shows normal sinus rhythm. The ECG axis is normal. There were no arrhythmias during stress. There is no ST segment changes during stress. There were no arrhythmias during recovery. There were no ST changes. Nondiagnostic in the setting of a pharmacological study. Nuclear Study Quality Study technique: MPI, SPECT, multi, rest and stress, 1 day and gated. Overall image quality is good. CT attenuation correction was utilized. No radiopharmaceutical dose was extravasated. The time from injection to rest imaging is 50 mins. The time from injection to stress imaging is 30 mins. Stress Function Comments Stress ejection fraction is 65%. Rest Function Comments Resting ejection fraction was 69%. Francis FELICIANO CV STRESS PROCEDURES Maye l Result * External Stress Test (05/01/2025) Anatomical Region Laterality Modality Nuclear Medicine Provider [facility] CV STRESS PROCEDURES Fin al Result * Thyroid stimulating hormone with reflex to free t4 and free t3 (04/22/2025 9:50 AM EDT) TSH 2.61 0.40 - 4.00 mcIU/mL LAB CHEMISTRY METHOD 04/22/2025 3:42 PM EDT [facility] Blood Venous blood specimen / Unknown Venipuncture / Unknown 04/22/2025 9:50 AM EDT 04/22/2025 9:50 AM EDT Francis FELICIANO LAB BLOOD ORDERABLES Maye l Result [facility] [address] [place] [address], [place] [phone] * (ABNORMAL) Lipid panel with reflex to direct LDL (04/22/2025 9:50 AM EDT) Cholesterol 120 0 - 200 mg/dL LAB CHEMISTRY METHOD 04/22/2025 2:59 PM EDT [facility] Triglycerides 176(H) 0 - 150 mg/dL LAB CHEMISTRY METHOD 04/22/2025 2:59 PM EDT [facility] HDL 42 >=40 mg/dL LAB CHEMISTRY METHOD 04/22/2025 2:59 PM EDT [facility] LDL Calculated 43 0 - 100 mg/dL LAB CHEMISTRY METHOD 04/22/2025 2:59 PM EDT [facility] VLDL Cholesterol Mani 35.2 mg/dL LAB CHEMISTRY METHOD 04/22/2025 2:59 PM T [facility] Non HDL Chol. (LDL+VLDL) 78 <145 mg/dL LAB CHEMISTRY METHOD 04/22/2025 2:59 PM T [facility] Chol/HDL Ratio 2.9 0.0 - 4.4 LAB CHEMISTRY METHOD 04/22/2025 2:59 PM [facility] Blood Venous blood specimen / Unknown Venipuncture / Unknown 04/22/2025 9:50 AM EDT 04/22/2025 9:50 AM EDT Francis FELICIANO LAB BLOOD ORDERABLES Maye l Result [facility] [address] [place] [address], * (ABNORMAL) CBC auto differential (04/22/2025 9:50 AM EDT) Only the most recent of2 resultswithin the time period is included. WBC 10.6 4.8 - 10.8 K/mcL LAB HEMETOLOGY METHOD 04/22/2025 12:25 PM EDT [facility] RBC 5.00 4.50 - 5.50 M/mcL LAB HEMETOLOGY METHOD 04/22/2025 12:25 PM EDT [facility] Hemoglobin 14.9 13.5 - 17.5 g/dL LAB HEMETOLOGY METHOD 04/22/2025 12:25 PM EDT [facility] Hematocrit 44.3 42.0 - 54.0 % LAB HEMETOLOGY METHOD 04/22/2025 12:25 PM EDT [facility] MCV 89.5 79.0 - 98.0 FL LAB HEMETOLOGY METHOD 04/22/2025 12:25 PM EDT [facility] MCH 30.1 27.0 - 32.0 pcg LAB HEMETOLOGY METHOD 04/22/2025 12:25 PM EDT [facility] MCHC 33.6 32.0 - 37.0 g/dL LAB HEMETOLOGY METHOD 04/22/2025 12:25 PM EDT [facility] RDW 13.3 11.0 - 15.0 % LAB HEMETOLOGY METHOD 04/22/2025 12:25 PM EDT [facility] Platelets 360 130 - 400 K/mcL LAB HEMETOLOGY METHOD 04/22/2025 12:25 PM EDT [facility] MPV 9.9 7.0 - 11.0 FL LAB HEMETOLOGY METHOD 04/22/2025 12:25 PM EDT [facility] NRBC 0.0 <1.0 % LAB HEMETOLOGY METHOD 04/22/2025 12:25 PM [facility] NRBC Absolute 0.00 <0.10 K/mcL LAB HEMETOLOGY METHOD 04/22/2025 12:25 PM [facility] Neutrophils Relative 53.8 % LAB HEMETOLOGY METHOD 04/22/2025 12:25 PM [facility] Lymphocytes Relative 31.5 % LAB HEMETOLOGY METHOD 04/22/2025 12:25 PM [facility] Monocytes Relative 9.6 % LAB HEMETOLOGY METHOD 04/22/2025 12:25 PM [facility] Eosinophils Relative 2.5 % LAB HEMETOLOGY METHOD 04/22/2025 12:25 PM [facility] Basophils Relative 1.2 % LAB HEMETOLOGY METHOD 04/22/2025 12:25 PM [facility] Immature Granulocytes Relative 1.4 % LAB HEMETOLOGY METHOD 04/22/2025 12:25 PM [facility] Neutrophils Absolute 5.71 1.50 - 7.00 K/mcL LAB HEMETOLOGY METHOD 04/22/2025 12:25 PM [facility] Lymphocytes Absolute 3.34 1.00 - 5.00 K/mcL LAB HEMETOLOGY METHOD 04/22/2025 12:25 PM [facility] Monocytes Absolute 1.02(H) 0.20 - 1.00 K/mcL LAB HEMETOLOGY METHOD 04/22/2025 12:25 PM [facility] Eosinophils Absolute 0.27 0.00 - 0.50 K/mcL LAB HEMETOLOGY METHOD 04/22/2025 12:25 PM [facility] Basophils Absolute 0.13 0.00 - 0.20 K/mcL LAB HEMETOLOGY METHOD 04/22/2025 12:25 PM EDT [facility] Immature Granulocytes Absolute 0.15(H) 0.00 - 0.03 K/mcL LAB HEMETOLOGY METHOD 04/22/2025 12:25 PM EDT [facility] Blood Venous blood specimen / Unknown Venipuncture / Unknown 04/22/2025 9:50 AM EDT 04/22/2025 9:50 AM EDT Francis FELICIANO LAB BLOOD ORDERABLES Maye l Result Performing Organization Address City/[facility]/ZIP Co de Phone Number [facility] [address] [place] [address], [place] [phone] * Microalbumin creatinine urine ratio (04/22/2025 9:50 AM EDT) Creatinine, Urine 43.0 mg/dL LAB CHEMISTRY METHOD 04/22/2025 1:47 PM EDT [facility] Microalb, Ur <5.0 0.0 - 29.0 mg/L LAB CHEMISTRY METHOD 04/22/2025 1:47 PM EDT [facility] Microalb/Creat Ratio <12 <30 mg/g creat LAB CHEMISTRY METHOD 04/22/2025 1:47 PM EDT [facility] Urine Urine specimen obtained by clean catch procedure / Unknown Non-blood Collection / Unknown 04/22/2025 9:50 AM EDT 04/22/2025 9:50 AM EDT Francis FELICIANO LAB URINE ORDERABLES Maye l Result Performing Organization Address City/[facility]/ZIP Co de Phone Number [facility] [address] [place] [address], [place] [phone] * Vitamin B1 (04/22/2025 9:50 AM EDT) Vitamin B1 Whole Blood 56 38 - 122 ug/L 04/25/2025 10:55 AM EDT [facility] Comment: This test was developed and the performance characteristics determined by [facility]. It has not been cleared or approved by the FDA. The laboratory is regulated under CLIA as qualified to perform high-complexity testing. This test is used for patient testing purposes. It should not be regarded as investigational or for research. Test performed at [facility], [address] , [place] [address] Mary Yusuf MD, PhD - Investment Trader Blood Venous blood specimen / Unknown Venipuncture / Unknown 04/22/2025 9:50 AM EDT 04/22/2025 9:50 AM EDT Louie Narayan MD LAB BLOOD ORDERABLES Fin al Result [facility] [address] [place] [address] * Hemoglobin A1c (04/22/2025 9:50 AM EDT) Hemoglobin A1C 6.3 <6.5 % LAB CHEMISTRY METHOD 04/22/2025 1:47 PM EDT [facility] Mean Bld Glu Estim. 134 mg/dL LAB CHEMISTRY METHOD 04/22/2025 1:47 PM EDT [facility] Blood Venous blood specimen / Unknown Venipuncture / Unknown 04/22/2025 9:50 AM EDT 04/22/2025 9:50 AM EDT Francis FELICIANO LAB BLOOD ORDERABLES Maye l Result [facility] [address] [place] [address], * (ABNORMAL) Comprehensive metabolic panel (04/22/2025 9:50 AM EDT) Sodium 139 133 - 145 mmol/L LAB CHEMISTRY METHOD 04/22/2025 2:59 PM [facility] Potassium 4.0 3.5 - 5.5 mmol/L LAB CHEMISTRY METHOD 04/22/2025 2:59 PM [facility] Chloride 107 96 - 110 mmol/L LAB CHEMISTRY METHOD 04/22/2025 2:59 PM [facility] CO2 22 21 - 32 mmol/L LAB CHEMISTRY METHOD 04/22/2025 2:59 PM [facility] Anion Gap 10 3 - 11 LAB CHEMISTRY METHOD 04/22/2025 2:59 PM [facility] Glucose 96 70 - 100 mg/dL LAB CHEMISTRY METHOD 04/22/2025 2:59 PM [facility] BUN 15 5 - 25 mg/dL LAB CHEMISTRY METHOD 04/22/2025 2:59 PM [facility] Creatinine 1.36(H) 0.70 - 1.30 mg/dL LAB CHEMISTRY METHOD 04/22/2025 2:59 PM [facility] eGFR 59(L) >=60 mL/min/1. 73m2 LAB CHEMISTRY METHOD 04/22/2025 2:59 PM [facility] Comment:Calculation based on the Chronic Kidney Disease Epidemiology Collaboration (CKD-EPI) equation refit without adjustment for race. BUN/Creatinine Ratio 11.0 LAB CHEMISTRY METHOD 04/22/2025 2:59 PM [facility] Calcium 9.8 8.5 - 10.5 mg/dL LAB CHEMISTRY METHOD 04/22/2025 2:59 PM [facility] AST (SGOT) 35 10 - 42 unit/L LAB CHEMISTRY METHOD 04/22/2025 2:59 PM [facility] ALT (SGPT) 59 10 - 60 unit/L LAB CHEMISTRY METHOD 04/22/2025 2:59 PM [facility] Alkaline Phosphatase 74 42 - 121 unit/L LAB CHEMISTRY METHOD 04/22/2025 2:59 PM EDT [facility] Total Protein 7.1 6.0 - 8.0 g/dL LAB CHEMISTRY METHOD 04/22/2025 2:59 PM EDT [facility] Albumin 4.3 3.2 - 5.0 g/dL LAB CHEMISTRY METHOD 04/22/2025 2:59 PM EDT [facility] Total Bilirubin 0.8 0.0 - 1.4 mg/dL LAB CHEMISTRY METHOD 04/22/2025 2:59 PM EDT [facility] Blood Venous blood specimen / Unknown Venipuncture / Unknown 04/22/2025 9:50 AM EDT 04/22/2025 9:50 AM EDT Francis FELICIANO LAB BLOOD ORDERABLES Maye l Result [facility] [address] [place] [address], * External clinical lab (04/17/2025) Provider [facility] LAB BLOOD ORDERABLES Fin al Result * Exercise stress test (04/05/2025 8:24 AM [...] well into recovery. CC report to his four horse hitch driver Dr. Hopkins in [place]. Stress Findings A Viraj protocol stress test [...] (03/21/2025 11:36 AM EDT) Left Atrium Minor Wallace 4.3 cm CV PACS Left Atrium Major Wallace 4.6 cm CV PACS LA Area Sys [...] Volume 59 mL CV PACS MV Deceleration Hand 3.1 m/s2 CV PACS E Wave Deceleration [...] Result [facility] [address] [place] [address], [place] [phone] * FERNANDO IFA with titer and pattern (02/27/2025 11:53 AM EDT) [facility] FERNANDO Negative Negative 02/28/2025 2:25 PM EDT [facility] Blood Venous blood specimen / Unknown Venipuncture / Unknown 02/27/2025 11:53 AM EDT 02/27/2025 11:53 AM EDT us Louie Narayan MD LAB BLOOD ORDERABLES Fin al Result Performing Organization Address [facility] Co de Phone Number [facility] [address] [place] [address], [place] [phone] * Borrelia burgdorferi antibody (02/27/2025 11:53 AM EDT) [facility] Lyme Ab Negative Negative LAB CHEMISTRY [...] ORDERABLES Fin al Result Performing Organization Address City/[facility]/ZIP Co de Phone Number [facility] [address] [place] [address], [place] [phone] * Creatinine (02/27/2025 11:53 AM EDT) [facility] Creatinine 1.15 0.70 - 1.30 mg/dL [...] ORDERABLES Fin al Result Performing Organization Address City/[facility]/ZIP Co de Phone Number [facility] [address] [place] [address], [place] [phone] * (ABNORMAL) Vitamin D 25 hydroxy (02/27/2025 11:53 AM EDT) [facility] Vit D, 25-Hydroxy 28.0(L) 30.0 - 80.0 ng/mL LAB CHEMISTRY METHOD 02/27/2025 4:52 PM EDT [facility] Blood Venous blood specimen / Unknown Venipuncture / Unknown 02/27/2025 11:53 AM EDT 02/27/2025 11:53 AM EDT us Louie Narayan MD LAB BLOOD ORDERABLES Fin al Result [facility] [address] [place] [address], [place] [phone] * Sedimentation rate (02/27/2025 11:53 AM EDT) [facility] Sed Rate 5 0 - 20 mm/hr LAB HEMETOLOGY METHOD 02/27/2025 2:43 PM EDT [facility] Blood Venous blood specimen / Unknown Venipuncture / Unknown 02/27/2025 11:53 AM EDT 02/27/2025 11:53 AM EDT us Louie Narayan MD LAB BLOOD ORDERABLES Fin al Result Performing Organization Address City/[facility] Co de Phone Number [facility] [address] [place] [address], [place] [phone] * BUN (02/27/2025 11:53 AM EDT) [facility] BUN 11 5 - 25 mg/dL LAB CHEMISTRY METHOD 02/27/2025 4:07 PM EDT [facility] Blood Venous blood specimen / Unknown Venipuncture / Unknown 02/27/2025 11:53 AM EDT 02/27/2025 11:53 AM EDT us Louie Narayan MD LAB BLOOD ORDERABLES Fin al Result Performing Organization Address [facility] de Phone Number [facility] [address] [place] [address], [place] [phone] * Vitamin B12 (02/27/2025 11:53 AM EDT) [facility] Vitamin B-12 470 250 - 900 pcg/mL LAB CHEMISTRY METHOD 02/27/2025 4:29 PM EDT [facility] Blood Venous blood specimen / Unknown Venipuncture / Unknown 02/27/2025 11:53 AM EDT 02/27/2025 11:53 AM EDT us Louie Narayan MD LAB BLOOD ORDERABLES Fin al Result Performing Organization Address City/[facility]/ZIP Co de Phone Number [facility] [address] [place] [address], [place] [phone] * Colonoscopy (04/04/2024) Pathologist [facility] Colonoscopy no interpreta tion,abstr acted Anatomical Region Laterality Modality Other Historical Provider HEALTH MAINTENANCE Edited Result - Final * Diabetes Foot Exam (09/09/2023) [facility] Diabetes: Annual Foot Exam Completed Historical Provider MD HEALTH MAINTENANCE Final Result * Diabetes Eye Exam (08/30/2023) [facility] Diabetes: Annual Retina Eye Exam Completed [facility] Provider HEALTH MAINTENANCE Final Result * Hepatitis C Screening (02/21/2009) [facility] Hepatitis C Screening abstracted [facility] Provider HEALTH MAINTENANCE Final Result from Last 3 Months or Most Recently Relevant to Health Maintenance Insurance [facility] Care Teams Sausage Canner Relationship Specialty Start Date End Date Francis Greene PA [address] [place] [id number] PCP - General Internal Medicine 07/20/24
[2025-05-15 10:49] LABS: INTERNATIONAL NORM RATIO 0.9 (0.9-1.1); Prothrombin Time 9.8 SEC (10.9-12.4)
[2025-05-15 10:52] LABS: Hematocrit 42.9 % (42.0-52.0); Hemoglobin 14.0 g/dl (14.0-18.0); Mean Corpuscular HGB Conc 32.6 g/dl (31.0-36.0); Mean Corpuscular Hemoglobin 30.3 pg (27.0-33.0); Mean Corpuscular Volume 92.9 fL (80.0-98.0); NRBC Abs Auto 0.000 X10*3/uL (0.0-0.012); NRBC Pct Auto 0.0 /100WBC (0.0-0.2); Platelet Count 321 X10*3/uL (160-400); Red Blood Count 4.62 X10*6/uL (4.60-5.80); White Blood Count 9.1 X10*3/uL (4.8-10.8)
[2025-05-15 11:13] LABS: Anion Gap 14 (12-20); Blood Urea Nitrogen 14 mg/dL (9-16); Calcium 9.2 mg/dL (8.4-10.2); Carbon Dioxide 25 mmol/L (22-29); Chloride 106 mmol/L (96-108); Estimated Glomerular Filt Rate > 60; Potassium 4.5 mmol/L (3.3-5.1); Sodium 140 mmol/L (135-145)
== END 2025-05-15 08:37 | disposition home or self-care (01) ==
LOC: HO.LAB 08:36
PROVIDERS: PCP Physician Assistant Medical
DX: R06.02 Shortness of breath (principal)
CPT/HCPCS: 36415; 80048; 85027; 85610

== ENCOUNTER → 2025-05-24 23:59 | Outpatient (BNV) | payer BC, SELFPAY | PROVIDERS: PCP Physician Assistant Medical; Visit Provider Internal Medicine Cardiovascular Disease | DX: R93.1 Abnormal findings on diagnostic imaging of heart and coronary circulation (principal) | CPT/HCPCS: 93458; 99152 ==

== ENCOUNTER 2025-05-31 12:46 | Outpatient (AMB) | payer BC, SELFPAY ==
--- OUTSIDE RECORDS SUMMARY | 2025-05-28 14:15 | XMS_ITS | Encounter Summary ---
Author Organization [facility] [place] [address] Care Team Providers Care Three Knife Trimmer Name Role Phone Francis Greene Primary Care Provider [phone] Encounter Details Date Type Department Care Team (Latest Contact Info) Description 05/28/2025 2:15 PM EDT Clinical Support Pulmonol[address] [place] [address] Chronic obstructive pulmonary disease, unspecified COPD type (CMS/HCC V24, CMS/HCC V28) Social History Tobacco Use Types Packs/Day Years Used Date Smoking Tobacco: Former Cigarettes 1 19 0 01/18/1973 - 01/19/1992 Smokeless Tobacco: [...] care for your loved ones. For example, early childhood lead teacher or elderly care for an older [...] AM EST documented as of this encounter Progress Notes * Faiza Brady - 05/28/2025 2:15 PM EDT Walked six minutes covering (150m/492ft) without Leg Fatigue, Moderate SOB Lowest oxygen saturationwas 93%. Returned to [facility] lab for Rest & Recovery. After 1 min RaSpO2 = 96% HR = 98; After 2 minRaSpO2 = 99% HR = 94. No indication for supplemental Oxygen for activity. documented in this encounter Plan of Treatment Upcoming Encounters Date Type Department Care Team (Late st Contact Info) Description 06/06/2025 9:00 AM EDT Office Visit [facility] [address] [facility] [address] [place] [phone] Louie Narayan MD [address] [place] [phone] 06/25/2025 8:30 AM EDT Office Visit Adult Medicine [facility] [address] [place] [address] Francis Greene PA [address] [place] [phone] 07/08/2025 8:55 AM EDT Office Visit Pulmonolgy - [facility] [address] [facility] [address] [place] [phone] Florecita Orona NP [address] [place] [phone] Pending Results Name Type Priority Associated Diagnoses Date /Time 6 minute walk test Procedures Routine Chronic obstructive pulmonary disease, unspecified COPD type (CMS/HCC V24, CMS/HCC V28) 05/28/2025 4:14 PM EDT documented as of this encounter Procedures Procedure Name Priority Date/Time Associated Diagnosis Comments SIX MINUTE WALK TEST Routine 05/28/2025 4:14 PM E DT Chronic obstructive pulmonary disease, unspecified COPD type (CMS/HCC V24, CMS/HCC V28) documented in this encounter Visit Diagnoses Diagnosis Chronic obstructive pulmonary disease, unspecified COPD type (CMS/HCC V24, CMS/HCC V28) documented in this encounter Additional Health Concerns Assessment Noted Time PHQ-9 Depression Total Score: 0 12/18/19 25 11:50 AM EDT documented as of this encounter Care Teams Three Knife Trimmer Relationship Specialty Start Date End Date Francis Greene PA [address] [place] [address] PCP - General Internal Medicine 07/20/24 documented as of this encounter
--- OUTSIDE RECORDS SUMMARY | 2025-05-28 15:10 | XMS_ITS | Encounter Summary ---
Author Organization [facility] Address [address] [place] [address] Care Team Providers Care Corrections Nurse Name Role Phone Francis Greene Primary Care Provider [phone] Reason for Visit * Reason Comments Shortness of Breath With exertion accomp anied by tachycardia. * Consultation (Urgent) - Authorized Specialty Diagnoses / Procedures Referred By Contac t Referred To Contact Pulmonary Disease / Pulmonology Diagnoses Chronic obstructive pulmonary disease, unspecified COPD type (CMS/HCC V24, CMS/HCC V28) Francis Greene PA [address] [place] [address] Phone: tel: fax: Pulmon[address] [address] Phone: tel: fax: Referral ID Status Reason Start Date Expiration Date Visits Requested Visits Authorized [id number] Authorized Specialty Services Required 05/27/2025 05/27/2026 1 1 Encounter Details Date Type Department Care Team (Late st Contact Info) Description 05/28/2025 3:10 PM EDT [facility] [address] [address] Florecita Orona NP [address] [place] [id number] Dyspnea on exertion (Primary Dx); Chronic obstructive pulmonary disease, unspecified COPD type (CMS/HCC V24, CMS/HCC V28); Anxiety; Exercise-induced tachycardia Social History Tobacco Use Types Packs/Day Years [...] for your loved ones. For example, child custody evaluator or elderly care for an older adult? [...] AM EST documented as of this encounter Last Filed Vital Signs Vital Sign Reading Time Taken Comments Blood Pressure 124/64 05/28/2025 3:03 PM EDT Pulse 104 05/28/2025 3:03 PM EDT Temperature 36.1 C (96.9 F) 05/28/2025 3:03 PM EDT Respiratory Rate 16 05/28/2025 3:03 PM EDT Oxygen Saturation 100% 05/28/2025 3:03 PM EDT Inhaled Oxygen Concentration - - Weight 79.2 kg (174 lb 9.6 oz) 05/28/2025 3:03 P M EDT Height 172.7 cm (5' 8 ) 05/28/2025 3:03 PM EDT Body Mass Index 26.55 05/28/2025 3:03 PM EDT documented in this encounter Ordered Prescriptions Prescription Sig Dispense Quantity Refills Last Filled Start Date End Date levalbuterol (Xopenex HFA) 45 mcg/actuation inhalerIndications :Chronic obstructive pulmonary disease, unspecified COPD type (CMS/HCC V24, CMS/HCC V28) Inhale 1-2 puffs by mouth every 4 (four) hours if needed for shortness of breath. 15 g 2 05/28/2025 documented in this encounter Progress Notes * Florecita Orona NP - 05/28/2025 3:10 PM EDT ADULT PULMONARY MEDICINE CONSULT CHIEF COMPLAINT or REASON FOR CONSULTATION: Shortness of Breath (With exertion accompanied by tachycardia.) INITIAL VISIT AT THIS PULMONARY CLINIC 02 See note for further details. IDENTIFIER Fermín Varma is a 64 y.o. years old, male History of Present Illness The patient is a 64-year-old male who presents for reevaluation of his dyspnea. He began experiencing shortness of breath in January, initially attributing it to allergies. He tried using an inhaler, but it did not alleviate his symptoms. His condition worsened, prompting him to seek medical attention from Dr. Francis Mata. A breathing test, echocardiogram, and stress test were conducted at [facility], all of which returned normal results. However, he could only walk for 7 minutes during the stress test. His symptoms continued to deteriorate, leading him to consult a acid wash operator who prescribed a heart monitor. The results were normal, but a nuclear stress test revealed some abnormalities. A cardiac catheterization performed on 05/24/2025 showed no blockages. His shortness of breath is so severe that he struggles to get out of bed or walk to the bathroom without becoming breathless. His oxygen saturation is 100% and blood pressure is 115/75 when at rest. He has visited the ER due to his symptoms, where he was told his vitals were normal and his symptomsmight be due to anxiety. He is unable to walk to his mailbox without becoming breathless. He has been prescribed medication for COPD, but he does not have a cough or produce phlegm. He has not pickedup the medication due to its cost. He has a history of smoking, starting at age 15 and quitting in 1993, but occasionally smokes and drinks alcohol. He has received multiple IVs recently. He has not yet received his flu shot this year, but has had pneumonia, COVID-19, and chickenpox vaccines in the past. He has not been hospitalizedfor his breathing issues. He has tried prednisone for 4 days but discontinued it due to side effects. He has also tried albuterol for a few days without relief. He experiences lightheadedness and has tested negative for Lyme disease, COVID- 19, and RSV. He has traveled to [place] in 06/2024 and [facility] in 09/2024. He has received corticosteroid injections in his neck for pain management following shoulder surgery and two disc replacements in his neck. He has undergone two brain MRIs, the first of which showed abnormalities while the second, conducted two weeks ago, was normal. He has been prescribed sertraline for anxiety, but it has not been effective. He has lorazepam at home but is not currently taking it. PAST SURGICAL HISTORY: Shoulder surgery and two disc replacements in the neck. 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 - Alcohol: Occasionally drinks alcohol but currently abstains - Tobacco: Smoked since age 15, stopped in 1993, occasionally smokes but currently abstains - Recreational Drugs: Does not smoke pot - Coffee/Tea/Caffeine-containing Drinks: Drinks coffee FAMILY HISTORY - Mother: Lung issues, pleurisy - Maternal grandmother: Lung issues, used a nebulizer in the 1970s - Father: Massive heart attack at age 65 - Mother: Atrial fibrillation - Grandfather: Hardening of the arteries ALLERGIES: @ALL@ ACTIVE MEDICATIONS: No outpatient medications have been marked as taking for the 05/28/25 encounter (Consult) with Florecita Orona NP. PROVIDER ATTESTS THAT THE MEDICATION LIST WAS OBTAINED, REVIEWED AND UPDATED. REVIEW OF SYSTEMS: GENERAL: Negative for malaise, fever, chills, night sweats, unexpected weight changes, and fatigue. HEENT: No changes in hearing or vision, no nose bleeds or nasal congestion or runny nose, sneezing,itchiness, clearing throat, and lump in the throat, snoring, and dry mouth. NECK: Negative for lumps, goiter, pain and significant neck swelling RESPIRATORY: see HPI CARDIOVASCULAR: No chest pain or leg swelling or palpitations or orthopnea or paroxysmal night dyspnea. GI: No abdominal discomfort, blood in stools or black stools, or acid reflex : No dysuria, frequency, urgency, incontinence or nocturia MUSCULOSKELETAL: No joint pain or swelling, back pain, or muscle pain. SKIN: No lesions, rash or itching PSYCH: No sleep disturbance, anxiety, depression, claustrophobia or SI/HI. HEMATOLOGY/LYMPHOLOGY No prolonged bleeding, easy bruisability or swollen nodes ENDOCRINE: No cold or heat intolerance, polyuria, polydipsia or goiter. NEURO: No persistent headache, syncope, seizures, weakness or numbness The remainder of the review of systems is noncontributory PAST MEDICAL HISTORY: Patient Active Problem List Diagnosis Date Noted Elevated blood pressure reading 06/27/2024 Coronary artery disease due to lipid rich plaque 09/09/2023 Type 2 diabetes mellitus without complication, without long-term current use of insulin ([facility] V24, [facility] V28) 06/03/2023 Chronic neck pain 08/31/2011 Hypertrophy of prostate without urinary obstruction 05/13/2006 Hyperlipidemia 04/18/2006 Past Surgical History: Procedure Laterality Date CERVICAL DISCECTOMY COLONOSCOPY 2012 PROCEDURE: HISTORICAL COLONOSCOPY; COMMENT: normal COLONOSCOPY 06/27/2018 PROCEDURE: HISTORICAL COLONOSCOPY; COMMENT: 5 mm rectal polyp: tubular adenoma. COLONOSCOPY 04/04/2024 PROCEDURE: HISTORICAL COLONOSCOPY; COMMENT: agustin 1 polyp 5 yrs ELBOW SURGERY Right PROCEDURE: HISTORICAL ELBOW SURGERY; COMMENT: tennis elbow surgery HERNIA REPAIR Bilateral PROCEDURE: HISTORICAL HERNIA REPAIR/ING NECK SURGERY PROCEDURE: HISTORICAL NECK SURGERY; COMMENT: dr salomon 2011 disc surgery cerv SHOULDER SURGERY Left PROCEDURE: HISTORICAL SHOULDER SURGERY; COMMENT: 2020, 2021 x 2 surgeries SOCIAL HISTORY: TOBACCO: Started 15 years old, Quit: 1993, around 1 pack daily at the most, for at least 30 years. Patient is 32 PPY. Worked in [employer]. 30years. 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 Smoking Status Former BSA 1.93 m?? Physical Exam General Appearance: Overweight(26.55). Alert and in no acute distress until walks. Speaks in full sentences. No stridor. Eyes: Conjunctiva and sclera normal. Nose/Sinus: Nares normal. Septum midline. Mucosa pink with no drainage or sinus tenderness. Mouth/Throat: Moist, pink without excudates or erythema, Mallampati class III. Neck: Neck supple, thyroid symmetric and of normal size. Respiratory: Vesicular sounds adequate bilaterally without wheezes, crackles, rhonchi, rales or rubs. Normal chest expansion and tactile fremitus. Cardiovascular:Mildly tachycardic with normal rhythm without any murmurs, gallops or rubs. Gastrointestinal: Bowel sounds normoactive, soft, non-tender. Lymphatic: No cervical and supra-clavicular lymphadenopathy. Extremities: Warm, well perfused without clubbing, cyanosis, or edema. Skin: Warm and dry, no rash. Neurological: Awake, alert and oriented x 3, no focalization. DIAGNOSTIC DATA: Peripheral oxygen saturation or SpO2 on RA today is 100%. CARDIOPULMONARY TEST: Last Pulmonary function Test showed: Result Date:03/21/2025 Spirometry done today reveals FEV1 of 3.61 which is 117% of the predicted value, FVC is 4.83 which is 122% of the predicted value, FEV1 to FVC ratio is 95% of the predicted value, there is no bronchodilator response. Flow volume is consistent with normal pattern. Static lung volumes are within normal limits except residual volume which is moderately reduced(69%). Diffusion lung capacity is mildlyreduced at 82% and remained mildly reduced at 79% after correction for alveolar volume. This study is consistent with normal spirometry and lung volumes there is isolated reduction in diffusion lung capacity for which clinical correlation is advised. RADIOLOGIST IMAGIN03/08/2025 CTA at [place] Impression: No pulmonary emboli Mild airway thickening and centrilobular emphysema ASSESSMENT: 1. Dyspnea on exertion 2. Chronic obstructive pulmonary disease, unspecified COPD type (CMS/HCC V24, CMS/HCC V28) Assessment & Plan 1. Dyspnea: Subacute since January. Initial self-treatment with an inhaler was ineffective. Subsequent evaluations by primary care physician and acid wash operator included a breathing test, CTA, echocardiogram, stress test, heart monitor, nuclear stress test, and cardiac catheterization, all of which showedno significant abnormalities. Despite normal oxygen saturation and blood pressure readings, severe shortness of breath with minimal exertion persists. Orthostatic pressure readings were normal. - Conduct 6-minute walk test today to assess for heart rate abnormalities. - Start on Anoro, one puff daily. - Use another inhaler(Xopenex) as needed every 4 to 6 hours for shortness of breath. - Obtain lab work for cortisol levels, alpha antitrypsin and Ddimer to evaluate dyspnea, CBC to evaluate for infection. - Obtain ABG due to significant breathlessness and work as conference service coordinator. - Consider further evaluation if no improvement within 1.5 months. 2. Anxiety: Chronic. Contributing to dyspnea. Previous medications for anxiety were ineffective or caused undesirable side effects. Currently on a low dose of sertraline. - Discuss potential increase in sertraline dosage with primary care physician at next appointment on 06/25/2025. 3. Tachycardia: Chronic. Experiences tachycardia with exertion, such as walking to the mailbox or taking a shower. Previous cardiac evaluations, including echo, nuclear stress test and cardiac catheterization, have not revealed significant abnormalities. - Conduct 6-minute walk test today to further assess heart rate response to exertion. - The patient was educated about respiratory problems, where assessment and plan was reviewed and explained, some educational material about his pulmonary problems was given with the discharge summary. All questions were answered.The above assessment and plan was discussed with Gabriel Candelario MD ( ). Diagnostic testing results were available for review during the discussion. Based on physical exam, symptomatology, tests requested and baseline pulmonary evaluation/disease, I instructed the patient to follow-up with me in 1.5 months as needed in the interim if other concerns/worsening symptoms. - Follow up with BRADEN Sarabia for the other co-morbidities. Thanks BRADEN Sarabia for allowing me to have the opportunity to assist in the care of this patient. I have obtained verbal consent from Fermín Varma prior to the recording. I have advised Fermín Varma that he may refuse the recording and require the recording to be turned off at any time during this encounter. documented in this encounter Plan of Treatment Upcoming Encounters Date Type Department Care Team (Late st Contact Info) Description 06/06/2025 9:00 AM EDT Office Visit [facility] [address] [facility] [address] [place] [address] Louie Narayan MD [address] [place] [address] 06/25/2025 8:30 AM EDT Office Visit [address] [address] Francis Greene PA [address] [place] [phone] 07/08/2025 8:55 AM EDT [facility] [address] [facility] [address] [place] [phone] Florecita Orona, DOYLE [address] [place] [phone] Pending Results Name Type Priority Associated Diagnoses Date /Time 6 minute walk test Procedures Routine Chronic obstructive pulmonary disease, unspecified COPD type ([facility] V24, [facility] V28) 05/28/2025 4:14 PM EDT Scheduled Orders Name Type Priority Associated Diagnoses Orde r Schedule Arterial blood gas Lab Routine Dyspnea on exertion Expected: 05/28/2025, Expires: 05/28/2026 documented as of this encounter Results * Cortisol (05/29/2025 8:58 AM EDT) Cortisol 10.1 mcg/dL LAB CHEMISTRY METHOD 05/29/2025 1:15 PM EDT [facility] Blood Venous blood specimen / Unknown Venipuncture / Unknown 05/29/2025 8:58 AM EDT 05/29/2025 8:59 AM EDT Narrative [facility] - 05/29/2025 1:15 PM EDT CORTISOL REFERENCE RANGE 8 AM SPEC: 5.0-23.0 mcg/dL 4 PM SPEC: 3.0-16.0 mcg/dL 8 PM SPEC: <5.0 mcg/dL us Florecita Orona REPAIRER SCREEN [facility] LAB BLOOD ORDERABLES Fi nal Result [facility] [address] [place] [address], * D-Dimer (05/29/2025 8:58 AM EDT) D-Dimer, Quant (D-DU) 150 <=230 ng/mL DDU LAB COAGULATION METHOD 05/29/2025 10:23 AM EDT [facility] Blood Venous blood specimen / Unknown Venipuncture / Unknown 05/29/2025 8:58 AM EDT 05/29/2025 8:59 AM EDT Narrative [facility] - 05/29/2025 10:23 AM EDT D-Dimer <230 ng/mL (D-Dimer units) is the threshold for exclusion of DVT/PE. D-Dimer may be elevated in: Critically ill, severely infected, trauma patients, DIC, acute CVA, acute MO, unstable angina, AF, old age, , and smoking. D-Dimer may be decreased with: Initiation of heparin therapy and oral anticoagulants. Florecita Orona REPAIRER [employer]CRE[employer] [facility] LAB BLOOD ORDERABLES Fi nal Result Performing Organization Address [facility] Co de Phone Number [facility] [address] [place] [address], [place] [phone] * [id number] (05/29/2025 8:58 AM EDT) A-1 Antitrypsin 165 90 - 200 mg/dL LAB CHEMISTRY METHOD 05/29/2025 12:43 PM EDT [facility] Blood Venous blood specimen / Unknown Venipuncture / Unknown 05/29/2025 8:58 AM EDT 05/29/2025 8:59 AM EDT Florecita Orona REPAIR[employer] [facility] LAB BLOOD ORDERABLES Fi nal Result Performing Organization Address [facility]/ZIP Co de Phone Number [facility] [address] [place] [address], [place] [phone] documented in this encounter Visit Diagnoses Diagnosis Dyspnea on exertion- Primary Other dyspnea and respiratory abnormality Chronic obstructive pulmonary disease, unspecified COPD type (CMS/HCC V24, CMS/HCC V28) Anxiety Anxiety state, unspecified Exercise-induced tachycardia documented in this encounter Orders Outpatient Referral Count Last Ordered Date Fir st Ordered Date AMB REFERRAL TO PULMONOLOGY 1 05/28/2025 documented in this encounter Additional Health Concerns Assessment Noted Time PHQ-9 Depression Total Score: 0 12/18/19 25 11:50 AM EDT documented as of this encounter Care Teams Corrections Nurse Relationship Specialty Start Date End Date Francis Greene PA [address] [place] [address] PCP - General Internal Medicine 07/20/24 documented as of this encounter
[2025-05-31 13:11] VITALS: BP 120/78; PULSE 77; BMI 26.9
--- NOTE | 2025-05-31 13:11 | MHC.OFFVIS ---
Vital Signs 05/31/25 13:11 Height 5 ft 8 in Weight 176 lb 12.972 oz BMI 26.9 BP 120/78 Blood Pressure Location Lt brachial Position Sitting Pulse 77 Pulse Source Monitor Intake Visit Reasons: Follow up post cardiac cath Accompanied by: Self / Same As Patient Allergies naproxen (NAPROXEN) Allergy (Unknown, Verified 05/31/25 13:15) HIVES Medication List - Last Reconciled 05/31/25 by Jason Rice NP amitriptyline 10 mg PO BEDTIME aspirin (Adult Low Dose Aspirin) 81 mg PO DAILY atorvastatin 80 mg PO BEDTIME 90 days bempedoic acid (Nexletol) 180 mg PO DAILY cholecalciferol (vitamin D3) 50 mcg PO DAILY ezetimibe 10 mg PO DAILY 90 days metoprolol succinate ER 25 mg PO DAILY sertraline 25 mg PO DAILY umeclidinium-vilanterol 62.5-25 mcg/actuation (Anoro Ellipta) 1 inh inhalation DAILY vibegron (Gemtesa) 75 mg PO DAILY HPI Comments Details: This is a 64-year-old male patient coming in for a follow-up visit, status post cardiac catheterization. Patient with a history of hyperlipidemia, hypertension, and coronary artery disease who suddenly developed shortness of breath with exertion and has been getting worse. Patient was seen in the hospital and was ruled out for PE and ACS. Patient has been having progressive symptoms and underwent an ETT, echo, and PFT which were all negative. Given his ongoing symptoms, we plan for a coronary CTA that showed elma-sq-rlglqmwa calcifications throughout the coronary system and was awaiting for FFR result. In the meanwhile, patient underwent a nuclear stress test with the primary care that was abnormal. Following this, patient underwent a cardiac catheterization with Dr. Mercado at [facility]. Today, patient reports ongoing symptoms of shortness of breath with exertion as well as palpitations where his heart rate can jump into the 120s to 140s. Patient also notes that he does get lightheaded upon standing up but his orthostatics at his pulmonary office has been negative. Patient does seem a little anxious however patient states that this is due to his frustration of not knowing the cause for his symptoms. Patient is otherwise denying any exertional chest pain, orthopnea, PND, leg edema, presyncope or syncope. [facility] Medical History Hyperlipidemia CAD (coronary artery disease) Surgical History Hx of neck surgery S/P shoulder surgery History of back surgery Family History Father CAD (coronary artery disease) Mother Afib CAD (coronary artery disease) Social History Alcohol intake: current Alcohol intake frequency: holidays/special occasions only Review of Systems Const Denies daytime sleepiness, Denies difficulty sleeping, Denies snoring, Denies stops breathing during sleep and Denies weakness Card Denies chest pain, Denies rapid heart rate, Denies irregular heart rhythm, Denies claudication, Denies leg edema, Reports lightheadedness, Denies palpitations, Reports dyspnea, Reports dyspnea on exertion, Denies orthopnea, Denies paroxysmal nocturnal dyspnea and Denies slow heart rate Resp Denies cough, Reports dyspnea, Reports dyspnea on exertion and Denies snoring GI Reports no additional complaints, Denies hematochezia, Denies change in stool character and Denies dyspepsia Musc Denies abnormal gait, Denies muscle weakness and Denies numbness Neuro Denies abnormal gait, Denies numbness and Denies weakness Endo Denies palpitations Physical Exam Vital Signs: Last Vital Signs Pulse 77 05/31/25 13:11 BP 120/78 05/31/25 13:11 BMI result Body Mass Index 26.9 Const General: cooperative, healthy appearing, comfortable and no acute distress Orientation/consciousness: patient oriented x3 HEENT Head: Yes normal to inspection Neck Neck: Yes normal visual inspection, Yes trachea midline and Yes supple Chest Chest palpation & inspection: normal inspection of the chest Resp Other: Shortness of breath with exertion Auscultation: clear to auscultation bilaterally, no crackles, no rales, no rhonchi and no wheezes Cardio Jugular venous distension: no JVD Palpation: normal PMI Rate: regular rate Rhythm: regular rhythm Heart sounds: S1 normal heart sound present, S2 normal heart sound present, no click, no gallops, no murmurs and no rubs Peripheral pulses: Peripheral pulses 2+ throughout GI Inspection: Yes normal to inspection Palpation (GI): Soft to palpation Auscultation: normal bowel sounds Skin General skin exam: no rashes or lesions noted Neuro General: patient oriented x3 Extrem General: Yes normal to inspection, No no pedal edema and No calf tenderness Psych Appearance: grossly normal Mental Status: mental status grossly normal Speech and movement: Normal speech and movement present Office Procedures EKG Details: EKG today shows normal sinus rhythm, rate 77 beats per minute, incomplete right bundle branch block, normal [place], [place]. [id number], Complete Assessment & Plan Assessment & Plan (1) CAD (coronary artery disease): Code(s): I25.10 - Atherosclerotic heart disease of [place] coronary artery without angina pectoris Category: Medical Qualifiers: Coronary Disease-Associated Artery/Lesion type: [place] artery [place] vs. transplanted heart: [place] heart Associated angina: without angina Qualified Code(s): I25.10 - Atherosclerotic heart disease of [place] coronary artery without angina pectoris Plan: History of coronary artery disease on a coronary calcium score. 04/17/2025-echo study at [facility] showed mild hypertrophy with normal LV systolic function with the ejection fraction between 55-60% with no wall motion abnormalities. 05/02/2025-coronary CTA showing [id number] calcified plaque in all 3 territories with minimal to mild stenosis throughout the coronary system, most advanced at the origin of the 1st obtuse marginal. FFR is 0.94 in the circumflex, 0.82 in the LAD, and 0.80 in the RCA. 05/24/2025-patient underwent cardiac catheterization with Dr. Mercado that [facility] that showed normal LVEDP, 30-40% stenosis in the distal RCA, 40% stenosis in the PDA, 30-40% and mid circumflex, minimal disease in the LAD, and small-sized OM1 with ostial 70% stenosis which is a small diameter vessel and not a PCI target. Given his ongoing symptoms with no cause found with all of the testings so far, consulted Dr. Hopkins who recommended CPET level 3 at [facility]. Given his ongoing symptoms of elevated heart rate with positional changes as well as lightheadedness, we will proceed with a tilt-table study to assess for dysautonomic function. Patient verbalizes understanding of the plan. We will send a referral to [facility] for the CPET via email. (2) Status post cardiac catheterization: Code(s): Z98.890 - Other specified postprocedural states Category: Medical Plan: As above. Continue aspirin, high-dose statin, and Zetia therapy. Right wrist catheterization site is well healed. Continue current regimen otherwise. (3) SOB (shortness of breath) on exertion: Code(s): R06.02 - Shortness of breath Category: Medical Plan: As above. (4) Palpitations: Code(s): R00.2 - Palpitations Category: Medical Plan: Holter study on 04/09/2025 showed normal sinus rhythm with an average heart rate of 75 beats per minute, with rare PACs burden of 0.02%. We will proceed with a tilt-table study. (5) Lightheadedness: Code(s): R42 - Dizziness and giddiness Category: Medical Plan: As above. (6) HTN (hypertension): Code(s): I10 - Essential (primary) hypertension Category: Medical Plan: Blood pressure today is well-controlled. Advised monitoring blood pressures at home with a goal less than 130/80. (7) Hyperlipidemia: Code(s): E78.5 - Hyperlipidemia, unspecified Category: Medical Qualifiers: Hyperlipidemia type: familial hypercholesterolemia Qualified Code(s): E78.01 - Familial hypercholesterolemia Plan: Most recent LDL within goal of less than 70. Advised heart healthy diet, med compliance, stress mitigation strategies, adequate hydration, and management of vascular risk factors. We will follow-up after completion of the test. In the interim, patient will call the office with any concerns or change in symptoms. Advised to seek ER care in case of exertional chest pain not resolved with rest. This note was generated using voice recognition software. While every effort has been made to ensure accuracy and proper electronic calibration technician, there may be occasional errors that could affect the content or meaning of the described symptoms. Orders: Orders ECG Tilt Table Test Today R00.2 - Palpitations, R42 - Dizziness and giddiness AMB EKG-In Office Today R06.02 - Shortness of breath CA cardiopulmonary stress test Today R00.2 - Palpitations, R06.02 - Shortness of breath Coding Level of Care Code Est Pt Level 4 (18090) Complex EM visit Add On G2211 Diagnoses Coronary artery disease involving [place] coronary artery of [place] heart without angina pectoris I25.10 Coronary Disease-Associated Artery/Lesion type: [place] artery [place] vs. transplanted heart: [place] heart Associated angina: without angina Status post cardiac catheterization Z98.890 SOB (shortness of breath) on exertion R06.02 Palpitations R00.2 Lightheadedness R42 HTN (hypertension) I10 Familial hypercholesterolemia E78.01 Hyperlipidemia type: familial hypercholesterolemia CPT Codes EKG - CPT: 50683-[id number], Complete ([id number]) Time Spent (min) 35 Comment Time spent in reviewing the chart, test results, assessment, counseling and documentation.
--- OUTSIDE RECORDS SUMMARY | 2025-05-31 15:05 | XMS_ITS | Clinical Summary ---
Author Organization 175 [facility] Address [address] [place] [address] Phone Care Team Providers Care Classifier Operator Name Role Phone Francis Greene Primary Care Provider [phone] Allergies Active Allergy Reactions Criticality Noted Date [...] (ZETIA) 10 mg tablet 1 Active acetic acid-hydrocortis one (VOSOL-HC) otic solution Administer [...] Amount: 1 mg 60 tablet 5 Active umeclidinium-harry anteroL (Anoro Ellipta) 62.5-25 mcg/actuation inhaler Inhale 1 puff by mouth 1 (one) time each day. 1 each 5 05/27/20 26 Active levalbuterol (Xopenex HFA) 45 mcg/actuation inhalerIndicatio ns:Chronic obstructive pulmonary disease, unspecified COPD type ([facility] V24, [facility] V28) Inhale 1-2 puffs by mouth every 4 (four) hours if needed for shortness of breath. 15 g 2 5 05/28/20 26 Active Active Problems Problem Noted Date Diagnosed Date Elevated blood pressure reading 06/27/2024 Coronary artery disease due to lipid rich plaque 09/09/2023 Type 2 diabetes mellitus wit hout complication, without long-term current use of insulin ([facility] V24, [facility] V28) 06/03/2023 Chronic neck pain 08/31/2011 Hypertrophy of prostate without urinary obstruct ion 05/13/2006 Hyperlipidemia 04/18/2006 Encounters Date Type Department Care Team Description 05/28/2025 3:10 PM EDT Consult Pulmonolgy - [address] [phone] Florecita Orona NP Dyspnea on exertion (Primary Dx); Chronic obstructive pulmonary disease, unspecified COPD type ([facility] V24, [facility] V28); Anxiety; Exercise-induced tachycardia 05/28/2025 2:15 PM EDT Clinical Support Pulmonolgy - [place] [address] [place] [phone] Chronic obstructive pulmonary disease, unspecified COPD type ([facility] V24, [facility] V28) 05/13/2025 10:25 AM EDT - 05/13/2025 11:59 PM EDT Hospital Encounter Radiology Department - [address] [phone] Hospital discharge follow-up; Coronary artery disease due to lipid rich plaque; Hyperlipidemia, unspecified hyperlipidemia type; Type 2 diabetes mellitus without complication, without long-term current use of insulin ([facility] V24, [facility] V28); SOB (shortness of breath); Other chest pain; Abnormal brain MRI Discharge Disposition: Home or Self Care 05/03/2025 Telephone [facility] Cardiology [address] [place] [phone] Francis Greene, [place] 05/01/2025 12:00 PM EDT Ancillary Procedure [facility] [address] [place] [phone] Type 2 diabetes mellitus without complication, without long-term current use of insulin ([facility] V24, [facility] V28); Coronary artery disease due to lipid rich plaque; Hyperlipidemia, unspecified hyperlipidemia type; Hypertrophy of prostate without urinary obstruction; Elevated blood pressure reading; SOB (shortness of breath); Other chest pain 04/22/2025 9:00 AM EDT Office Visit [facility] - [address] [phone] Francis Greene, PA Type 2 diabetes mellitus without complication, without long-term current use of insulin ([facility] V24, [facility] V28) (Primary Dx); Coronary artery disease due to lipid rich plaque; Hyperlipidemia, unspecified hyperlipidemia type; Hypertrophy of prostate without urinary obstruction; Elevated blood pressure reading; SOB (shortness of breath); Other chest pain 04/22/2025 Telephone [facility] Cardiology [facility] - [address] [place] [address] Crystal Elza, [place] 04/05/2025 7:30 AM EDT Ancillary Procedure [facility] [address] [phone] Hospital discharge follow-up; Coronary artery disease due to lipid rich plaque; Hyperlipidemia, unspecified hyperlipidemia type; Type 2 diabetes mellitus without complication, without long-term current use of insulin (CMS/HCC V24, CMS/HCC V28); SOB (shortness of breath); Other chest pain; Abnormal brain MRI 04/04/2025 Telephone Adult Medicine [address] [phone] Francis Greene PA 03/28/2025 Telephone [facility] Medicine [address] [phone] Francis Greene PA 03/21/2025 11:00 AM EDT Ancillary Procedure [facility] [address] [phone] Hospital discharge follow-up; Coronary artery disease due to lipid rich plaque; Hyperlipidemia, unspecified hyperlipidemia type; Type 2 diabetes mellitus without complication, without long-term current use of insulin ([facility] V24, [facility] V28); SOB (shortness of breath); Other chest pain; Abnormal brain MRI 03/21/2025 7:03 AM EDT - 03/21/2025 11:59 PM EDT Hospital Encounter [facility] Pulmonary [address] [place] [address] Discharge Disposition: Home or Self Care 03/12/2025 12:45 PM EDT Office Visit Adult [address] [phone] Francis Greene, PA Hospital discharge follow-up (Primary Dx); Coronary artery disease due to lipid rich plaque; Hyperlipidemia, unspecified hyperlipidemia type; Type 2 diabetes mellitus without complication, without long-term current use of insulin (CMS/HCC V24, CMS/HCC V28); SOB (shortness of breath); Other chest pain; Abnormal brain MRI 03/11/2025 12:00 PM EDT Procedure visit [facility] [place] [facility] [address] [place] [address] Louie Narayan MD Cervico-occipital neuralgia (Primary Dx); Trigger point 03/07/[address] [phone] Francis Greene PA 03/04/2025 Telephone [facility] [address] [facility] [address] [place] [address] Mine Barajas [place] from Last 3 Months Immunizations Name Administration [...] Breast cancer Aunt 70 Heart attack Father SD x 2 Other: some of type of [...] care for your loved ones. For example, summer child caregiver or elderly care for an older adult? [...] Mass Index 26.55 05/28/2025 3:03 PM EDT Plan of Treatment Upcoming Encounters Date Type Department Care Team (Late st Contact Info) Description 06/06/2025 9:00 AM EDT Office Visit [facility] [address] [facility] [address] [place] [phone] Louie Narayan MD [address] [place] [phone] 06/25/2025 8:30 AM EDT Office Visit Adult Medicine [facility] [address] [place] [phone] Francis Greene PA [address] [place] [phone] 07/08/2025 8:55 AM EDT Office Visit Pulmonolgy - [place] [address] [facility] [address] [place] [phone] Florecita Orona NP [address] [place] [phone] Health Maintenance Due Date Last Done Comments RSV Immunization Adult Patients (1 - Risk 60-74 years 1-dose series) 2022 HIV Screening 08/28/2022 COVID-19 Vaccine ( season) 2025 07/21/2022, 08/29/2021, 10/19/2020, Additional history exists Influenza [...] Td or Tdap) 05/31/2033 05/31/2023, 10/24/2012, 11/23/2004 Hepatitis C Screening Completed 02/21/2009 Diabetes: Annual [...] this topic Medical Devices Implanted Type Area Stationary Plant Operators Device Identifier Shelf Expiration Date Model / Serial / Lot Mesh 3dmax Lght Lg 4.1x6.2 L 4.1x6.2in - Sn/A - [id number] Implanted:Qty: 1 on 08/02/2024 by Tevin Leary DO at [facility] Surgical Mesh Sling Implants Left: Inguinal CR BARD [employer] 11/16/2028 [id number] / N/A / [id number] [employer] Fix8 Implanted:Qty: 1 on 08/02/2024 by Tevin Leary DO at [facility] Left: Inguinal [employer] 11/16/2025 [id number] / N/A / [id number] Procedures Procedure Name Priority Date/Time Associated Diagnosis Comments CBC WITH AUTO DIFFERENTIAL Routine 05/29/2025 8:58 AM EDT Chronic obstructive pulmonary disease, unspecified COPD type (CMS/HCC V24, CMS/HCC V28) CBC AND DIFFERENTIAL Routine 05/29/2025 8:58 AM EDT Chronic obstructive pulmonary disease, unspecified COPD type (CMS/HCC V24, CMS/HCC V28) [id number] Routine 05/29/2025 8 :58 AM EDT Chronic obstructive pulmonary disease, unspecified COPD type (CMS/HCC V24, CMS/HCC V28) D-DIMER Routine 05/29/2025 8:58 AM EDT Chronic obstructive pulmonary disease, unspecified COPD type (CMS/HCC V24, CMS/HCC V28) CORTISOL Routine 05/29/2025 8:58 AM EDT Dyspnea on exertion SIX MINUTE WALK TEST Routine 05/28/2025 4:14 PM EDT Chronic obstructive pulmonary disease, unspecified COPD type (CMS/HCC V24, CMS/HCC V28) EXTERNAL CLINICAL LAB 05/15/2025 MR BRAIN WO AND W CONTRAST Routine 05/13/2025 11:58 AM EDT Hospital discharge follow-up Coronary artery disease due to lipid rich plaque Hyperlipidemia, unspecified hyperlipidemia type Type 2 diabetes mellitus without complication, without long-term current use of insulin ([facility] V24, CMS/HCC V28) SOB (shortness of breath) Other chest pain Abnormal brain MRI NM LEXISCAN STRESS TEST W/ MYOCARDIAL PERFUSION Routine 05/01/2025 2:12 PM EDT Type 2 diabetes mellitus without complication, without long-term current use of insulin ([facility] V[facility], [facility] V28) Coronary artery disease due to lipid rich plaque Hyperlipidemia, unspecified hyperlipidemia type Hypertrophy of prostate without urinary obstruction Elevated blood pressure reading SOB (shortness of breath) Other chest pain EXTERNAL STRESS TEST 05/01/2025 CBC WITH AUTO DIFFERENTIAL Routine 04/22/2025 9:50 AM EDT Type 2 diabetes mellitus without complication, without long-term current use of insulin ([facility] V24, [facility] V28) Coronary artery disease due to lipid [...] complication, without long-term current use of insulin ([facility] V24, [facility] V28) Coronary artery disease due to lipid rich plaque Hyperlipidemia, unspecified hyperlipidemia type Hypertrophy of prostate without urinary obstruction Elevated blood pressure reading SOB (shortness of breath) Other chest pain MICROALBUMIN CREATININE URINE RATIO Routine 04/22/2025 9:50 AM EDT Type 2 diabetes mellitus without complication, without long-term current use of insulin ([facility] V24, [facility] V28) Coronary artery disease due to lipid rich plaque Hyperlipidemia, unspecified hyperlipidemia type Hypertrophy of prostate without urinary obstruction Elevated blood pressure reading SOB (shortness of breath) Other chest pain COMPREHENSIVE METABOLIC PANEL Routine 04/22/2025 9:50 AM EDT Type 2 diabetes mellitus without complication, without long-term current use of insulin ([facility] V24, [facility] V28) Coronary artery disease due to lipid rich plaque Hyperlipidemia, unspecified hyperlipidemia type Hypertrophy of prostate without urinary obstruction Elevated blood pressure reading SOB (shortness of breath) Other chest pain HEMOGLOBIN A1C Routine 04/22/2025 9:50 AM EDT Type 2 diabetes mellitus without complication, without long-term current use of insulin ([facility] V24, [facility] V28) Coronary artery disease due to lipid rich plaque Hyperlipidemia, unspecified hyperlipidemia type Hypertrophy of prostate without urinary obstruction Elevated blood pressure reading SOB (shortness of breath) Other chest pain CBC AND DIFFERENTIAL Routine 04/22/2025 9:50 AM EDT Type 2 diabetes mellitus without complication, without long-term current use of insulin ([facility] V24, [facility] V28) Coronary artery disease due to lipid rich plaque Hyperlipidemia, unspecified hyperlipidemia type Hypertrophy of prostate without urinary obstruction Elevated blood pressure reading SOB (shortness of breath) Other chest pain THYROID STIMULATING HORMONE WITH REFLEX TO FREE T4 AND FREE T3 Routine 04/22/2025 9:50 AM EDT Type 2 diabetes mellitus without complication, without long-term current use of insulin ([facility] V24, [facility] V28) Coronary artery disease due to lipid [...] complication, without long-term current use of insulin ([facility] V24, [facility] V28) SOB (shortness of breath) Other chest pain Abnormal brain MRI TRANSTHORACIC ECHOCARDIOGRAM (TTE) COMPLETE Routine 03/21/2025 11:36 AM EDT Hospital discharge follow-up Coronary artery disease due to lipid rich plaque Hyperlipidemia, unspecified hyperlipidemia type Type 2 diabetes mellitus without complication, without long-term current use of insulin ([facility] V24, [facility] V28) SOB (shortness of breath) Other chest pain Abnormal brain MRI SPIROMETRY BRONCHODILATION RESPONSIVENESS PRE/POST BRONCHODILATOR ADMINISTRATION Routine 03/21/2025 8:05 AM EDT Hospital discharge follow-up Coronary artery disease due to lipid rich plaque Hyperlipidemia, unspecified hyperlipidemia type Type 2 diabetes mellitus without complication, without long-term current use of insulin ([facility] V24, [facility] V28) SOB (shortness of breath) Other chest pain Abnormal brain MRI EXTERNAL CT REPORT 03/07/2025 EXTERNAL XRAY REPORT 03/07/2025 COLONOSCOPY Routine 04/04/2024 DIABETES FOOT EXAM Routine 09/09/2023 DIABETES EYE EXAM Routine 08/30/2023 HEPATITIS C SCREENING Routine 02/21/2009 from Last 3 Months or Most Recently Relevant to Health Maintenance Results * (ABNORMAL) CBC auto differential (05/29/2025 8:58 AM EDT) Only the most recent of2 resultswithin the time period is included. WBC 11.1(H) 4.8 - 10.8 K/mcL LAB HEMETOLOGY METHOD 05/29/2025 10:29 AM [facility] RBC 4.90 4.50 - 5.50 M/mcL LAB HEMETOLOGY METHOD 05/29/2025 10:29 AM [facility] Hemoglobin 14.5 13.5 - 17.5 g/dL LAB HEMETOLOGY METHOD 05/29/2025 10:29 AM [facility] Hematocrit 44.4 42.0 - 54.0 % LAB HEMETOLOGY METHOD 05/29/2025 10:29 AM [facility] MCV 91.4 79.0 - 98.0 FL LAB HEMETOLOGY METHOD 05/29/2025 10:29 AM [facility] MCH 29.8 27.0 - 32.0 pcg LAB HEMETOLOGY METHOD 05/29/2025 10:29 AM [facility] MCHC 32.7 32.0 - 37.0 g/dL LAB HEMETOLOGY METHOD 05/29/2025 10:29 AM [facility] RDW 13.5 11.0 - 15.0 % LAB HEMETOLOGY METHOD 05/29/2025 10:29 AM [facility] Platelets 360 130 - 400 K/mcL LAB HEMETOLOGY METHOD 05/29/2025 10:29 AM [facility] MPV 9.9 7.0 - 11.0 FL LAB HEMETOLOGY METHOD 05/29/2025 10:29 AM [facility] NRBC 0.0 <1.0 % LAB HEMETOLOGY METHOD 05/29/2025 10:29 AM [facility] NRBC Absolute 0.00 <0.10 K/[facility] LAB HEMETOLOGY METHOD 05/29/2025 10:29 AM [facility] Neutrophils Relative 54.0 % LAB HEMETOLOGY METHOD 05/29/2025 10:29 AM [facility] Lymphocytes Relative 31.9 % LAB HEMETOLOGY METHOD 05/29/2025 10:29 AM [facility] Monocytes Relative 8.7 % LAB HEMETOLOGY METHOD 05/29/2025 10:29 AM [facility] Eosinophils Relative 3.2 % LAB HEMETOLOGY METHOD 05/29/2025 10:29 AM [facility] Basophils Relative 1.3 % LAB HEMETOLOGY METHOD 05/29/2025 10:29 AM [facility] Immature Granulocytes Relative 0.9 % LAB HEMETOLOGY METHOD 05/29/2025 10:29 AM [facility] Neutrophils Absolute 5.99 1.50 - 7.00 K/[facility] LAB HEMETOLOGY METHOD 05/29/2025 10:29 AM EDT [facility] Lymphocytes Absolute 3.54 1.00 - 5.00 K/[facility] LAB HEMETOLOGY METHOD 05/29/2025 10:29 AM EDT [facility] Monocytes Absolute 0.96 0.20 - 1.00 K/[facility] LAB HEMETOLOGY METHOD 05/29/2025 10:29 AM EDT [facility] Eosinophils Absolute 0.36 0.00 - 0.50 K/[facility] LAB HEMETOLOGY METHOD 05/29/2025 10:29 AM EDT [facility] Basophils Absolute 0.14 0.00 - 0.20 K/[facility] LAB HEMETOLOGY METHOD 05/29/2025 10:29 AM EDT [facility] Immature Granulocytes Absolute 0.10(H) 0.00 - 0.03 K/[facility] LAB HEMETOLOGY METHOD 05/29/2025 10:29 AM EDT [facility] Blood Venous blood specimen / Unknown Venipuncture / Unknown 05/29/2025 8:58 AM EDT 05/29/2025 8:59 AM EDT Florecita Orona OFFICE EQUIPMENT TECHNICIAN LAB BLOOD ORDERABLES Fi nal Result [facility] [address] [place] [address], * [id number] (05/29/2025 8:58 AM EDT) A-1 Antitrypsin 165 90 - 200 mg/dL LAB CHEMISTRY METHOD 05/29/2025 12:43 PM EDT [facility] Blood Venous blood specimen / Unknown Venipuncture / Unknown 05/29/2025 8:58 AM EDT 05/29/2025 8:59 AM EDT Florecita Orona OFFICE EQUIPMENT TECHNICIAN LAB BLOOD ORDERABLES Fi nal Result Performing Organization Address [facility]/ZIP Co de Phone Number [facility] [address] [place] [address], [place] [phone] * D-Dimer (05/29/2025 8:58 AM EDT) D-Dimer, Quant (D-DU) 150 <=230 ng/mL DDU LAB COAGULATION METHOD 05/29/2025 10:23 AM EDT [facility] Blood Venous blood specimen / Unknown Venipuncture / Unknown 05/29/2025 8:58 AM EDT 05/29/2025 8:59 AM EDT Narrative [facility] - 05/29/2025 10:23 AM EDT D-Dimer <230 ng/mL (D-Dimer units) is the threshold for exclusion of DVT/PE. D-Dimer may be elevated in: Critically ill, severely infected, trauma patients, DIC, acute CVA, acute SD, unstable angina, AF, old age, , and smoking. D-Dimer may be decreased with: Initiation of heparin therapy and oral anticoagulants. Florecita Orona OFFICE EQUIPMENT TECHNICIAN LAB BLOOD ORDERABLES Fi nal Result Performing Organization Address [facility] Co de Phone Number [facility] [address] [place] [address], [place] [phone] * Cortisol (05/29/2025 8:58 AM EDT) Cortisol 10.1 mcg/dL LAB CHEMISTRY METHOD 05/29/2025 1:15 PM EDT [facility] Blood Venous blood specimen / Unknown Venipuncture / Unknown 05/29/2025 8:58 AM EDT 05/29/2025 8:59 AM EDT Narrative [facility] - 05/29/2025 1:15 PM EDT CORTISOL REFERENCE RANGE 8 AM SPEC: 5.0-23.0 mcg/dL 4 PM SPEC: 3.0-16.0 mcg/dL 8 PM SPEC: <5.0 mcg/dL us Florecita Orona OFFICE EQUIPMENT TECHNICIAN LAB BLOOD ORDERABLES Fi nal Result [facility] [address] [place] [address], [place] [phone] * External clinical lab (05/15/2025) Only the most recent of2 resultswithin the time period is included. us Provider [facility] LAB BLOOD ORDERABLES Fin al Result * MR Brain wo and w Contrast [...] Signed Date: 05/14/2025 14:32 ET Workstation ID: [id number] Transcribed By: Self Edit Transcribed Date: 05/14/2025 [...] Signed Date: 05/14/2025 14:32 ET Workstation ID: [id number] Transcribed By: Self Edit Transcribed Date: 05/14/2025 14:13 ET us Francis GILLETTE MRI PROCEDURES Final Result * NM LEXISCAN [...] size, moderate, reversible perfusion defect of the amkju-dyc-xhcuun anterior wall, anterior apical, apical conde consistent [...] and free t3 (04/22/2025 9:50 AM EDT) [facility] TSH 2.61 0.40 - 4.00 mcIU/mL LAB CHEMISTRY METHOD 04/22/2025 3:42 PM EDT [facility] Blood Venous blood specimen / Unknown Venipuncture / Unknown 04/22/2025 9:50 AM EDT 04/22/2025 9:50 AM EDT Francis FELICIANO LAB BLOOD ORDERABLES Maye l Result [facility] [address] [place] [address], [place] [phone] * (ABNORMAL) Lipid panel with reflex to direct LDL (04/22/2025 9:50 AM EDT) Cholesterol 120 0 - 200 mg/dL LAB CHEMISTRY METHOD 04/22/2025 2:59 PM EDT [facility] Triglycerides 176(H) 0 - 150 mg/dL LAB CHEMISTRY METHOD 04/22/2025 2:59 PM EDT [facility] HDL 42 >=40 mg/dL LAB CHEMISTRY METHOD 04/22/2025 2:59 PM EDT [facility] LDL Calculated 43 0 - 100 mg/dL LAB CHEMISTRY METHOD 04/22/2025 2:59 PM EDT [facility] VLDL Cholesterol Mani 35.2 mg/dL LAB CHEMISTRY METHOD 04/22/2025 2:59 PM EDT [facility] Non HDL Chol. (LDL+VLDL) 78 <145 mg/dL LAB CHEMISTRY METHOD 04/22/2025 2:59 PM EDT [facility] Chol/HDL Ratio 2.9 0.0 - 4.4 LAB CHEMISTRY METHOD 04/22/2025 2:59 PM EDT [facility] Blood Venous blood specimen / Unknown Venipuncture / Unknown 04/22/2025 9:50 AM EDT 04/22/2025 9:50 AM EDT us Francis FELICIANO LAB BLOOD ORDERABLES Maye l Result [facility] [address] [place] [address], * Microalbumin creatinine urine ratio (04/22/2025 9:50 AM EDT) Creatinine, Urine 43.0 mg/dL LAB CHEMISTRY METHOD 04/22/2025 1:47 PM EDT [facility] Microalb, Ur <5.0 0.0 - 29.0 mg/L LAB CHEMISTRY METHOD 04/22/2025 1:47 PM EDT [facility] Microalb/Creat Ratio <12 <30 mg/g creat LAB CHEMISTRY METHOD 04/22/2025 1:47 PM EDT [facility] Urine Urine specimen obtained by clean catch procedure / Unknown Non-blood Collection / Unknown 04/22/2025 9:50 AM EDT 04/22/2025 9:50 AM EDT Francis FELICIANO LAB URINE ORDERABLES Maye l Result [facility] [address] [place] [address], * Vitamin B1 (04/22/2025 9:50 AM EDT) Pathologist [facility] Vitamin B1 Whole Blood 56 38 - 122 ug/L 04/25/2025 10:55 AM EDT [facility] Comment: This test was developed and the performance characteristics determined by [facility]. It has not been cleared or approved by the FDA. The laboratory is regulated under CLIA as qualified to perform high-complexity testing. This test is used for patient testing purposes. It should not be regarded as investigational or for research. Test performed at [facility], [address] , [place] [address] Mary Yusuf MD, PhD - Refinery Superintendent Blood Venous blood specimen / Unknown Venipuncture / Unknown 04/22/2025 9:50 AM EDT 04/22/2025 9:50 AM EDT Louie Narayan MD LAB BLOOD ORDERABLES Fin al Result [facility] [address] [place] [address] * Hemoglobin A1c (04/22/2025 9:50 AM EDT) Hemoglobin A1C 6.3 <6.5 % LAB CHEMISTRY METHOD 04/22/2025 1:47 PM EDT [facility] Mean Bld Glu Estim. 134 mg/dL LAB CHEMISTRY METHOD 04/22/2025 1:47 PM EDT [facility] Blood Venous blood specimen / Unknown Venipuncture / Unknown 04/22/2025 9:50 AM EDT 04/22/2025 9:50 AM EDT us Francis FELICIANO LAB BLOOD ORDERABLES Maye l Result [facility] [address] [place] [address], [place] [phone] * (ABNORMAL) Comprehensive metabolic panel (04/22/2025 9:50 AM EDT) Sodium 139 133 - 145 mmol/L LAB CHEMISTRY METHOD 04/22/2025 2:59 PM [facility] Potassium 4.0 3.5 - 5.5 mmol/L LAB CHEMISTRY METHOD 04/22/2025 2:59 PM [facility] Chloride 107 96 - 110 mmol/L LAB CHEMISTRY METHOD 04/22/2025 2:59 PM [facility] CO2 22 21 - 32 mmol/L LAB CHEMISTRY METHOD 04/22/2025 2:59 PM [facility] Anion Gap 10 3 - 11 LAB CHEMISTRY METHOD 04/22/2025 2:59 PM [facility] Glucose 96 70 - 100 mg/dL LAB CHEMISTRY METHOD 04/22/2025 2:59 PM [facility] BUN 15 5 - 25 mg/dL LAB CHEMISTRY METHOD 04/22/2025 2:59 PM [facility] Creatinine 1.36(H) 0.70 - 1.30 mg/dL LAB CHEMISTRY METHOD 04/22/2025 2:59 PM [facility] eGFR 59(L) >=60 mL/min/1. 73m2 LAB CHEMISTRY METHOD 04/22/2025 2:59 PM [facility] Comment:Calculation based on the Chronic Kidney Disease Epidemiology Collaboration (CKD-EPI) equation refit without adjustment for race. BUN/Creatinine Ratio 11.0 LAB CHEMISTRY METHOD 04/22/2025 2:59 [facility] Calcium 9.8 8.5 - 10.5 mg/dL LAB CHEMISTRY METHOD 04/22/2025 2:59 PM [facility] AST (SGOT) 35 10 - 42 unit/L LAB CHEMISTRY METHOD 04/22/2025 2:59 PM [facility] ALT (SGPT) 59 10 - 60 unit/L LAB CHEMISTRY METHOD 04/22/2025 2:59 PM [facility] Alkaline Phosphatase 74 42 - 121 unit/L LAB CHEMISTRY METHOD 04/22/2025 2:59 PM [facility] Total Protein 7.1 6.0 - 8.0 g/dL LAB CHEMISTRY METHOD 04/22/2025 2:59 PM [facility] Albumin 4.3 3.2 - 5.0 g/dL LAB CHEMISTRY METHOD 04/22/2025 2:59 PM [facility] Total Bilirubin 0.8 0.0 - 1.4 mg/dL LAB CHEMISTRY METHOD 04/22/2025 2:59 PM [facility] Blood Venous blood specimen / Unknown Venipuncture / Unknown 04/22/2025 9:50 AM EDT 04/22/2025 9:50 AM EDT us Francis FELICIANO LAB BLOOD ORDERABLES Maye bevaers Result [facility] [address] [place] [address], * Exercise stress test (04/05/2025 8:24 AM [...] well into recovery. CC report to his sap administrator Dr. Hopkins in [place]. Stress Findings A Viraj protocol stress test [...] (03/21/2025 11:36 AM EDT) Left Atrium Minor Crivitz 4.3 cm CV PACS Left Atrium Major Crivitz 4.6 cm CV PACS LA Area Sys [...] Volume 59 mL CV PACS MV Deceleration [place] 3.1 m/s2 CV PACS E Wave Deceleration [...] Details Overall the study quality was adequate. Result [facility] Francis FELICIANO CV ECHO PROCEDURES Final Result [...] and hypoxemia. Clinical correlation however is recommended. Result [facility] Francis FELICIANO PFT ORDERABLES Final Res ult * External Xray Report (03/07/2025) Anatomical Region Laterality Modality Radiographic Yoli ging Result [facility] Onbase IMG XR PROCEDURES Final Result * External CT Report (03/07/2025) Anatomical Region Laterality Modality Computed Tomogra phy Result [facility] Onbase IMG CT PROCEDURES Final Result * Colonoscopy (04/04/2024) Colonoscopy no interpreta tion,abstr acted Anatomical Region Laterality Modality Other Result [facility] Historical Provider HEALTH MAINTENANCE Edited Result - Final * Diabetes Foot Exam (09/09/2023) Pathologist [facility] Diabetes: Annual Foot Exam Completed Historical Provider HEALTH MAINTENANCE Final Result * Diabetes Eye Exam (08/30/2023) [facility] Diabetes: Annual Retina Eye Exam Completed Historical Provider HEALTH MAINTENANCE Final Result * Hepatitis C Screening (02/21/2009) [facility] Hepatitis C Screening abstracted Historical Provider HEALTH MAINTENANCE Final Result from Last 3 Months or Most Recently Relevant to Health Maintenance Insurance [facility] Care Teams Classifier Operator Relationship Specialty Start Date End Date Francis Greene PA [address] [place] [address] PCP - General Internal Medicine 07/20/24
== END 2025-05-31 14:37 | disposition home or self-care (01) ==
LOC: HO.HCS 12:47
PROVIDERS: PCP Physician Assistant Medical
DX: I25.10 Atherosclerotic heart disease of native coronary artery without angina pectoris (principal); Z98.890 Other specified postprocedural states; R06.02 Shortness of breath; R00.2 Palpitations; R42 Dizziness and giddiness; I10 Essential (primary) hypertension; E78.01 Familial hypercholesterolemia
CPT/HCPCS: 93010; 99214

== ENCOUNTER → 2025-05-31 12:46 | Outpatient (BNVA) | payer BC, SELFPAY | PROVIDERS: PCP Physician Assistant Medical | DX: I25.10 Atherosclerotic heart disease of native coronary artery without angina pectoris (principal) | CPT/HCPCS: 93005 ==